=== PATIENT | female | born 1965 | race Caucasian/White ===

== ENCOUNTER 2019-11-28 08:56 | Outpatient (REF) | payer OTHER, SELFPAY ==
[2019-11-30 23:17] LABS: HPV mRNA E6/E7 Not Detected (Not Detected)
== END 2019-11-28 08:57 | disposition home or self-care (01) ==
LOC: HO.LNP 08:56
PROVIDERS: PCP Internal Medicine; Visit Provider Advanced Practice Midwife
DX: Z01.419 Encounter for gynecological examination (general) (routine) without abnormal findings (principal); N92.0 Excessive and frequent menstruation with regular cycle; Z86.19 Personal history of other infectious and parasitic diseases; Z87.42 Personal history of other diseases of the female genital tract
CPT/HCPCS: 87624; 87625; 88142; 99386

== ENCOUNTER 2019-12-20 17:35 | Outpatient (REF) | payer OTHER, SELFPAY ==
--- NOTE | 2019-12-20 17:39 | MM_ITS ---
EXAMINATION: MM SCREENING DIGITAL MAMMOGRAPHY, BILATERAL CLINICAL INFORMATION: Screening. Asymptomatic. The lifetime risk of breast cancer based on the Tyrer-Cuzick Model is 7.5%. COMPARISON: Mammography: May 03, 2018 and studies dating back to July 01, 2017 TECHNIQUE: Digital mammography is performed in craniocaudal and mediolateral oblique views along with computer-aided detection (CAD). Additional right exaggerated craniocaudal view performed. FINDINGS: The breasts are heterogeneously dense, which may obscure small masses (ACR BI-RADS breast composition Category c). There are no significant masses, abnormal calcifications, or other abnormalities. Stable calcifications are seen bilaterally. MM/MM screening mammo BI IMPRESSION: There are no significant changes from prior study. ASSESSMENT: BI-RADS 1: Negative RECOMMENDATION: Routine annual mammography screening. This patient's information was entered into a reminder system with a target due date for their next mammogram.
== END 2019-12-20 17:36 | disposition home or self-care (01) ==
LOC: HO.MAMMO 17:35
PROVIDERS: Visit Provider Internal Medicine
DX: Z01.419 Encounter for gynecological examination (general) (routine) without abnormal findings (principal)
CPT/HCPCS: 77067

== ENCOUNTER 2019-12-29 14:16 | Outpatient (REF) | payer OTHER, SELFPAY ==
--- NOTE | 2019-12-29 14:22 | US_ITS ---
EXAMINATION: US PELVIS COMPLETE US TRANSVAGINAL CLINICAL INFORMATION: Dysmenorrhea. COMPARISON: None TECHNIQUE: Transabdominal and transvaginal ultrasound of the pelvis was performed. FINDINGS: The uterus is anteverted, anteflexed measuring 9.4 cm in length, 4.0 cm in AP and 5.0 cm in transverse dimensions. The uterus is homogeneous in echotexture. Small nabothian cysts are seen in the cervix. The right ovary measures 2.3 x 1.1 x 2.3 cm and volume 3.1 mL. The left ovary measures 3.1 x 2.6 x 1.8 cm and volume 7.6 cm. There are 2 anechoic cyst measuring 1.5 x 1.1 x 1.6 cm and 1.4 x 0.8 x 0.9 cm. There is no free fluid in the cul-de-sac. US/US transvaginal IMPRESSION: Unremarkable uterus. Small simple cysts left ovary. Small nabothian cysts in the cervix.
--- NOTE | 2019-12-29 14:22 | US_ITS ---
EXAMINATION: US PELVIS COMPLETE US TRANSVAGINAL CLINICAL INFORMATION: Dysmenorrhea. COMPARISON: None TECHNIQUE: Transabdominal and transvaginal ultrasound of the pelvis was performed. FINDINGS: The uterus is anteverted, anteflexed measuring 9.4 cm in length, 4.0 cm in AP and 5.0 cm in transverse dimensions. The uterus is homogeneous in echotexture. Small nabothian cysts are seen in the cervix. The right ovary measures 2.3 x 1.1 x 2.3 cm and volume 3.1 mL. The left ovary measures 3.1 x 2.6 x 1.8 cm and volume 7.6 cm. There are 2 anechoic cyst measuring 1.5 x 1.1 x 1.6 cm and 1.4 x 0.8 x 0.9 cm. There is no free fluid in the cul-de-sac. US/US pelvic complete IMPRESSION: Unremarkable uterus. Small simple cysts left ovary. Small nabothian cysts in the cervix.
== END 2019-12-29 14:17 | disposition home or self-care (01) ==
LOC: HO.US 14:16
PROVIDERS: Visit Provider Advanced Practice Midwife
DX: N94.6 Dysmenorrhea, unspecified (principal); N92.0 Excessive and frequent menstruation with regular cycle
CPT/HCPCS: 76830; 76856

== ENCOUNTER 2020-01-30 13:11 | Outpatient (REF) | payer OTHER, SELFPAY ==
[2020-01-31 09:21] LABS: BV Int Neg Control Negative (Negative); BV Int Pos Control Positive (Positive)
[2020-02-03 18:12] LABS: CT PCR NOT DETECTED (Not Detect.); NG PCR NOT DETECTED (Not Detect.)
== END 2020-01-30 13:12 | disposition home or self-care (01) ==
LOC: HO.LAB 13:11
PROVIDERS: PCP Internal Medicine; Visit Provider Advanced Practice Midwife
DX: N93.9 Abnormal uterine and vaginal bleeding, unspecified (principal); N94.6 Dysmenorrhea, unspecified; N89.8 Other specified noninflammatory disorders of vagina; F17.210 Nicotine dependence, cigarettes, uncomplicated; N39.3 Stress incontinence (female) (male)
CPT/HCPCS: 58100; 87480; 87491; 87510; 87591; 87660; 88305

== ENCOUNTER → 2020-02-14 14:43 | Outpatient (BNVA) | payer OTHER, SELFPAY | PROVIDERS: PCP Internal Medicine; Visit Provider Advanced Practice Midwife | DX: Z76.89 Persons encountering health services in other specified circumstances (principal) ==

== ENCOUNTER → 2020-03-08 09:44 | Outpatient (BNVA) | payer OTHER, SELFPAY | PROVIDERS: PCP Internal Medicine; Referring Provider Internal Medicine; Visit Provider Urology | DX: Z76.89 Persons encountering health services in other specified circumstances (principal) ==

== ENCOUNTER 2020-05-29 07:25 | Outpatient (REF) | payer OTHER, SELFPAY ==
[2020-05-29 11:11] LABS: MANUAL DIFF FLAG NO
[2020-05-29 11:24] LABS: Basophils Percent Auto 0.4 % (0-2); Eosinophils Absolute Auto 0.2 X10*3/uL (0.0-0.4); Eosinophils Percent Auto 2.2 % (0-4); Hematocrit 43.8 % (37-47); Hemoglobin 13.4 g/dl (12.0-16.0); Imm Gran Abs Auto 0.01 X10*3/uL (0.00-0.03); Imm Gran Pct Auto 0.1 % (0.0-0.4); Lymphocytes Absolute Auto 1.4 X10*3/uL (1.2-4.9); Lymphocytes Percent Auto 20.6 % (20-40); Mean Corpuscular HGB Conc 30.6 g/dl (31.0-35.0); Mean Corpuscular Hemoglobin 25.8 pg (27.0-33.0); Mean Corpuscular Volume 84.2 fL (80-98); Mean Platelet Volume 11.9 fL (9.4-12.3); Monocytes Absolute Auto 0.4 X10*3/uL (0.1-1.2); Monocytes Percent Auto 6.6 % (2-11); Neutrophils Absolute Auto 4.7 X10*3/uL (2.0-8.3); Neutrophils Percent Auto 70.1 % (45-73); Platelet Count 267 X10*3/uL (160-400); Red Cell Distribution Width 13.3 % (11.0-16.0); White Blood Count 6.7 X10*3/uL (4.8-10.8)
[2020-05-29 11:48] LABS: Alanine Aminotransferase 51 U/L (0-31); Albumin Level 4.3 g/dL (3.5-5.0); Alkaline Phosphatase 48 U/L (39-117); Anion Gap 14 (12-20); Aspartate Amino Transferase 31 U/L (5-31); Bilirubin Direct 0.3 mg/dL (0.0-0.5); Bilirubin Total 0.7 mg/dL (0.0-1.0); Blood Urea Nitrogen 18 mg/dL (9-16); Calcium 9.2 mg/dL (8.4-10.2); Carbon Dioxide 28 mmol/L (22-29); Chloride 103 mmol/L (96-108); Estimated Glomerular Filt Rate > 60; Glucose Random 86 mg/dL (60-115); Potassium 4.6 mmol/L (3.3-5.1); Sodium 140 mmol/L (135-145); Total Protein 6.8 g/dL (6.5-8.0)
[2020-05-29 11:54] LABS: TSH reflex Free T4 0.83 uIU/mL (0.32-4.0)
[2020-05-30 05:48] LABS: LDL Cholesterol Direct 98 mg/dL (<100)
== END 2020-05-29 07:26 | disposition home or self-care (01) ==
LOC: HO.HMGCLDS 07:25
PROVIDERS: PCP Internal Medicine; Visit Provider Internal Medicine
DX: F33.9 Major depressive disorder, recurrent, unspecified (principal); F41.1 Generalized anxiety disorder
CPT/HCPCS: 36415; 80048; 80076; 83721; 84443; 85025

== ENCOUNTER 2020-10-30 10:51 | Outpatient (REF) | payer OTHER, SELFPAY ==
--- NOTE | ~2020-10-30 | XR_ITS ---
EXAMINATION: XR HAND, RIGHT CLINICAL INFORMATION: M19.90 - Unspecified osteoarthritis, unspecified site COMPARISON: None TECHNIQUE: PA, lateral, and oblique views of the right hand. FINDINGS: There is no acute or healing fracture, dislocation, destructive process. The ulnar variance is within neutral. The carpus shows no joint narrowing or erosive change or chondrocalcinosis. The pronator quadratus fat pad appears normal. There is no osteoarthropathy at first carpometacarpal joint. The MCP joints and PIP joints are unremarkable. There is some borderline narrowing DIP joints fourth and fifth fingers. No erosive change. XR/XR hand RT min 3V IMPRESSION: Borderline joint narrowing DIP fourth and fifth fingers. No erosive change.
[2020-10-30 14:19] LABS: Alanine Aminotransferase 29 U/L (0-31); Albumin Level 4.3 g/dL (3.5-5.0); Alkaline Phosphatase 48 U/L (39-117); Aspartate Amino Transferase 20 U/L (5-31); Bilirubin Direct 0.2 mg/dL (0.0-0.5); Bilirubin Total 0.5 mg/dL (0.0-1.0); Total Protein 6.5 g/dL (6.5-8.0)
== END 2020-10-30 10:52 | disposition home or self-care (01) ==
LOC: HO.HMGCX 10:51
PROVIDERS: PCP Internal Medicine; Visit Provider Internal Medicine
DX: M19.90 Unspecified osteoarthritis, unspecified site (principal); R79.89 Other specified abnormal findings of blood chemistry
CPT/HCPCS: 36415; 73130; 80076

== ENCOUNTER 2020-11-22 21:03 | Emergency (ER) | payer OTHER, SELFPAY ==
[2020-11-22 21:28] VITALS: BP 130/56; PULSE 80; RESP 18; TEMP 37.2; O2SAT 99; BMI 35.2
[2020-11-22 21:50] LABS: Appearance Urine CLEAR; Color Urine YELLOW; Glucose Urine UA NEG (NEG); Leukocyte Esterase Urine NEG (NEG); Nitrite Urine NEG (NEG); PH 5.5 (5.0-8.0); Specific Gravity - Urine >= 1.030 (1.005-1.025); UACC Culture Trigger NO; Urine Blood TRACE (NEG); Urine Ketones NEG (NEG); Urine Protein NEG (NEG-TRACE)
[2020-11-22 21:53] LABS: Basophils Percent Auto 0.2 % (0-2); Eosinophils Percent Auto 0.2 % (0-4); Hematocrit 44.5 % (37-47); Hemoglobin 14.2 g/dl (12.0-16.0); Imm Gran Abs Auto 0.07 X10*3/uL (0.00-0.03); Imm Gran Pct Auto 0.4 % (0.0-0.4); Lymphocytes Absolute Auto 0.7 X10*3/uL (1.2-4.9); Lymphocytes Percent Auto 3.5 % (20-40); MANUAL DIFF FLAG SCAN; Mean Corpuscular HGB Conc 31.9 g/dl (31.0-35.0); Mean Corpuscular Hemoglobin 26.1 pg (27.0-33.0); Mean Corpuscular Volume 81.8 fL (80-98); Mean Platelet Volume 10.9 fL (9.4-12.3); Monocytes Percent Auto 5.2 % (2-11); Neutrophils Percent Auto 90.5 % (45-73); Platelet Count 309 X10*3/uL (160-400); Red Blood Count 5.44 X10*6/uL (4.20-5.50); Red Cell Distribution Width 13.2 % (11.0-16.0); SCAN SMEAR FLAG 1; White Blood Count 18.7 X10*3/uL (4.8-10.8)
--- NOTE | 2020-11-22 22:00 | PC.NURSE ---
pt offered zofran, refused
[2020-11-22 22:02] LABS: Bacteria Urine TRACE /LPF; Mucus Urine 2+ /LPF; Squamous Epithelial Cell Urine 1+ /LPF; WBC Urine 0-2 /HPF (0-4)
[2020-11-22 22:03] LABS: Calcium Oxalate Crystals Urine 1+ /LPF
[2020-11-22 22:11] LABS: Alanine Aminotransferase 35 U/L (0-31); Albumin Level 4.7 g/dL (3.5-5.0); Alkaline Phosphatase 49 U/L (39-117); Anion Gap 15 (12-20); Aspartate Amino Transferase 25 U/L (5-31); Bilirubin Direct 0.2 mg/dL (0.0-0.5); Bilirubin Total 0.5 mg/dL (0.0-1.0); Blood Urea Nitrogen 23 mg/dL (9-16); Calcium 9.7 mg/dL (8.4-10.2); Carbon Dioxide 25 mmol/L (22-29); Chloride 103 mmol/L (96-108); Creatinine Clr Calc Pharmacy 75.1; Estimated Glomerular Filt Rate > 60; Glucose Random 148 mg/dL (60-115); Lipase 38 U/L (8-78); Potassium 4.1 mmol/L (3.3-5.1); Sodium 139 mmol/L (135-145); Total Protein 7.2 g/dL (6.5-8.0)
[2020-11-22 22:20] LABS: SLIDE REVIEW VERIFIED
[2020-11-22 22:25] LABS: Glucose, Whole Blood 136 mg/dL (60-115)
[2020-11-22 22:37] VITALS: BP 105/56; PULSE 66; RESP 16; TEMP 36.4; O2SAT 95
[2020-11-22 23:11] VITALS: BP 119/62; PULSE 70; RESP 18; TEMP 36.7; O2SAT 100
--- NOTE | 2020-11-22 23:51 | PC.NURSE ---
pt and s/o seen by ED natural gas treating unit operator walking out of room and leaving ER. pt not seen by MD Charge nurse aware. MD notified
== END 2020-11-22 23:55 | disposition left against medical advice (07) ==
PROVIDERS: Emergency Provider Emergency Medicine; PCP Internal Medicine
DX: R11.10 Vomiting, unspecified (principal); R19.7 Diarrhea, unspecified; Z79.899 Other long term (current) drug therapy
CPT/HCPCS: 36415; 80048; 80076; 81001; 82947; 83690; 85025; 99283

== ENCOUNTER 2020-11-27 08:30 | Outpatient (REF) | payer OTHER, SELFPAY ==
[2020-11-27 10:40] LABS: Thyroid Stimulating Hormone 0.67 uIU/mL (0.32-4.0)
[2020-11-28 09:54] LABS: BV Int Neg Control Negative (Negative); BV Int Pos Control Positive (Positive)
[2020-11-28 12:57] LABS: CT PCR NOT DETECTED (Not Detect.); NG PCR NOT DETECTED (Not Detect.)
[2020-11-29 11:32] LABS: Follicle Stimulating Hormone 31.6 mIU/mL
== END 2020-11-27 08:31 | disposition home or self-care (01) ==
LOC: HO.LAB 08:30
PROVIDERS: PCP Internal Medicine; Visit Provider Advanced Practice Midwife
DX: N93.9 Abnormal uterine and vaginal bleeding, unspecified (principal)
CPT/HCPCS: 36415; 58100; 81025; 83001; 84443; 87480; 87491; 87510; 87591; 87660; 88305

== ENCOUNTER → 2020-12-25 08:35 | Outpatient (BNVA) | payer OTHER, SELFPAY | PROVIDERS: PCP Internal Medicine; Visit Provider Advanced Practice Midwife | DX: N92.0 Excessive and frequent menstruation with regular cycle (principal); Z71.2 Person consulting for explanation of examination or test findings | CPT/HCPCS: 99212 ==

== ENCOUNTER 2021-02-26 14:45 | Outpatient (REF) | payer OTHER, SELFPAY ==
--- NOTE | ~2021-02-26 | MM_ITS ---
EXAMINATION: MM SCREENING DIGITAL BREAST TOMOSYNTHESIS, BILATERAL CLINICAL INFORMATION: Screening. Asymptomatic. The lifetime risk of breast cancer based on the Tyrer-Cuzick Model is 6%. COMPARISON: Mammography: 12/20/2019, outside mammography 05/03/2018 ([facility]), 07/01/2017 ([facility]). TECHNIQUE: Digital breast tomosynthesis is performed in both the craniocaudal and mediolateral oblique views along with computer-aided detection (CAD). Synthesized 2D images are generated from the tomosynthesis. FINDINGS: There are scattered areas of fibroglandular density (ACR BI-RADS breast composition Category b). Breast tissue composition borders on heterogeneously dense. Parenchymal pattern is similar to prior exam. There is no developing density or interval mass or architectural abnormality. Again, there are regional punctate calcifications predominantly upper outer quadrants, more numerous on left. Calcifications are similar in number and distribution to prior study. The axilla and skin contours are unremarkable. MM/MM tomosynthesis screening BI IMPRESSION: No significant changes from prior exam. ASSESSMENT: BI-RADS 2: Benign RECOMMENDATION: Routine annual mammography screening. This patient's information was entered into a reminder system with a target due date for their next mammogram.
== END 2021-02-26 14:46 | disposition home or self-care (01) ==
LOC: HO.MAMMO 14:45
PROVIDERS: PCP Internal Medicine; Visit Provider Advanced Practice Midwife
DX: Z12.31 Encounter for screening mammogram for malignant neoplasm of breast (principal)
CPT/HCPCS: 77063; 77067

== ENCOUNTER 2021-08-19 10:59 | Emergency (ER) | payer OTHER, SELFPAY ==
--- NOTE | 2021-08-19 | ECG_ITS ---
Test Reason : syncope Blood Pressure : / mmHG Vent. Rate : 071 BPM Atrial Rate : 071 BPM P-R Int : 132 ms QRS Dur : 080 ms QT Int : 420 ms P-R-T Axes : 041 038 050 degrees QTc Int : 456 ms Normal sinus rhythm Normal ECG No previous ECGs available Referred By: Generic ED Physician Electronically Signed By:GREG SALINAS
--- NOTE | ~2021-08-19 | CT_ITS ---
EXAMINATION: CT HEAD WITHOUT CONTRAST CT CERVICAL SPINE WITHOUT CONTRAST CLINICAL INFORMATION: Fall. Head injury. COMPARISON: None. TECHNIQUE: Imaging was performed from the skull base to vertex without intravenous administration of contrast. In addition, helical noncontrast CT imaging was acquired through the cervical spine and source images were reviewed along with axial reconstructions and sagittal and coronal MPRs. [This CT examination was performed using dose optimization techniques as appropriate, variously including the following: *Automated exposure control *Adjustment of mA and/or kV according to patient size (this includes techniques or standardized protocols for targeted exams where dose is matched to indication/reason for exam; i.e. extremities or head) *Use of iterative reconstruction technique] DLP: 1227 mGy-cm FINDINGS: HEAD: No intracranial mass, hemorrhage, or midline shift is visualized. The ventricles and sulci are proportional. No extra-axial collections are identified. The paranasal sinuses and mastoid air cells are well aerated. CERVICAL SPINE: There is no evidence of acute cervical spine fracture. Vertebral bodies remain normal in height. Cervical vertebrae have normal alignment. There is multilevel degenerative spondylosis of the cervical spine with disc height narrowing and endplate spurs and facet joint arthrosis No pre- or paravertebral soft tissue abnormality is identified. Limited assessment of the lung apices is unremarkable. CT/CT cervical spine wo con IMPRESSION: 1. No acute intracranial pathology. 2. No CT evidence of acute cervical spine fracture or traumatic subluxation
--- NOTE | ~2021-08-19 | CT_ITS ---
EXAMINATION: CT HEAD WITHOUT CONTRAST CT CERVICAL SPINE WITHOUT CONTRAST CLINICAL INFORMATION: Fall. Head injury. COMPARISON: None. TECHNIQUE: Imaging was performed from the skull base to vertex without intravenous administration of contrast. In addition, helical noncontrast CT imaging was acquired through the cervical spine and source images were reviewed along with axial reconstructions and sagittal and coronal MPRs. [This CT examination was performed using dose optimization techniques as appropriate, variously including the following: *Automated exposure control *Adjustment of mA and/or kV according to patient size (this includes techniques or standardized protocols for targeted exams where dose is matched to indication/reason for exam; i.e. extremities or head) *Use of iterative reconstruction technique] DLP: 1227 mGy-cm FINDINGS: HEAD: No intracranial mass, hemorrhage, or midline shift is visualized. The ventricles and sulci are proportional. No extra-axial collections are identified. The paranasal sinuses and mastoid air cells are well aerated. CERVICAL SPINE: There is no evidence of acute cervical spine fracture. Vertebral bodies remain normal in height. Cervical vertebrae have normal alignment. There is multilevel degenerative spondylosis of the cervical spine with disc height narrowing and endplate spurs and facet joint arthrosis No pre- or paravertebral soft tissue abnormality is identified. Limited assessment of the lung apices is unremarkable. CT/CT head/brain wo con IMPRESSION: 1. No acute intracranial pathology. 2. No CT evidence of acute cervical spine fracture or traumatic subluxation
[2021-08-19 11:19] VITALS: BP 133/82; PULSE 84; RESP 18; TEMP 36.9; O2SAT 98; BMI 27.3
[2021-08-19 12:11] LABS: MANUAL DIFF FLAG NO
[2021-08-19 12:19] LABS: Basophils Percent Auto 0.3 % (0-2); Eosinophils Absolute Auto 0.1 X10*3/uL (0.0-0.4); Hematocrit 40.8 % (37.0-47.0); Hemoglobin 12.9 g/dl (12.0-16.0); Imm Gran Abs Auto 0.03 X10*3/uL (0.00-0.03); Imm Gran Pct Auto 0.5 % (0.0-0.4); Lymphocytes Absolute Auto 1.3 X10*3/uL (1.2-4.9); Lymphocytes Percent Auto 22.3 % (20-40); Mean Corpuscular HGB Conc 31.6 g/dl (31.0-35.0); Mean Corpuscular Hemoglobin 25.6 pg (27.0-33.0); Mean Corpuscular Volume 81.1 fL (80.0-98.0); Mean Platelet Volume 10.5 fL (9.4-12.3); Monocytes Absolute Auto 0.3 X10*3/uL (0.1-1.2); Monocytes Percent Auto 4.7 % (2-11); Neutrophils Absolute Auto 4.2 x10*3/uL (2.0-8.3); Neutrophils Percent Auto 70.2 % (45-73); Platelet Count 262 X10*3/uL (160-400); Red Blood Count 5.03 X10*6/uL (4.20-5.50); Red Cell Distribution Width 13.5 % (11.0-16.0)
[2021-08-19 12:27] LABS: Anion Gap 12 (12-20); Blood Urea Nitrogen 16 mg/dL (9-16); Calcium 9.6 mg/dL (8.4-10.2); Carbon Dioxide 26 mmol/L (22-29); Chloride 105 mmol/L (96-108); Estimated Glomerular Filt Rate > 60; Glucose Random 128 mg/dL (60-115); Potassium 4.4 mmol/L (3.3-5.1); Sodium 139 mmol/L (135-145)
--- NOTE | 2021-08-19 20:31 | ED_ITS ---
HPI - Headache General Chief Complaint: Headache Stated Complaint: fainted, severe headache Time Seen by Provider: 08/19/21 15:29 Source: patient Mode of arrival: ambulatory Limitations: no limitations History of Present Illness MD elicited complaint: headache Related Data Home Medications Medication Instructions Recorded Confirmed toño extract 500 mg capsule cap PO 11/28/19 02/08/21 naproxen 500 mg tablet 500 mg PO Q12H PRN pain 11/28/19 02/08/21 naproxen sodium 220 mg tablet 220 mg PO BID PRN 01/09/21 02/08/21 (Aleve) Previous Rx's Medication Instructions Recorded metronidazole 1 % topical gel with 1 appl topical ONCE 30 days #55 08/21/20 pump grams mometasone 0.1 % topical cream 1 appl topical DAILY 30 days #45 09/14/20 grams valacyclovir 500 mg tablet 500 mg PO BID #30 tabs 09/24/20 (Valtrex) cholecalciferol (vitamin D3) 25 25 mcg PO DAILY 90 days #90 caps 09/25/20 mcg (1,000 unit) capsule cyclobenzaprine 5 mg tablet 5 mg PO BEDTIME 30 days #30 tabs 01/09/21 methylprednisolone 4 mg tablets in See Rx Instructions PO PER PKG DIR 01/09/21 a dose pack (Medrol (Gabriele)) 6 days #21 ea omeprazole 20 mg capsule,delayed 20 mg PO DAILY #90 caps 05/13/21 release sertraline 25 mg tablet (Zoloft) 25 mg PO DAILY 90 days #90 tabs 05/21/21 Allergies Allergy/AdvReac Type Severity Reaction Status Date / Time No Known Allergies Allergy Verified 08/19/21 11:22 [No Known Allergies*] [facility] Past Medical History Medical History Anxiety, generalized Atopic dermatitis Depression, major, recurrent Herpes labialis Hx of cold sores Hx of rosacea Surgical History History of bladder surgery Hx of appendectomy Tubal ligation status Family History Family History Mother Family hx of hypertension Family history of Alzheimer's disease Father No problems noted. Brother No problems noted. Brother No problems noted. Brother No problems noted. Brother No problems noted. Social History Social History Housing: House Alcohol intake: current Alcohol intake frequency: a few times a month Patient Tobacco Use Status: Never used Tobacco Advance Directives: No Current occupational status: employed Physical Exam Vital Signs: Vital Signs: Last Vital Signs Temp 98.4 F 08/19/21 11:19 Pulse 75 08/19/21 20:38 Resp 18 08/19/21 20:38 BP 138/73 08/19/21 20:38 Pulse Ox 97 08/19/21 20:38 O2 Del Method 08/19/21 20:38 BMI result Body Mass Index 27.3 MDM - Headache Lab Data Result diagrams: 08/19/21 12:05 08/19/21 12:05 Labs: Lab Results 08/19/21 08/19/21 Range/Units 12:05 12:05 WBC 6.0 (4.8-10.8) X10*3/uL RBC 5.03 (4.20-5.50) X10*6/uL Hgb 12.9 (12.0-16.0) g/dl Hct 40.8 (37.0-47.0) % MCV 81.1 (80.0-98.0) fL MCH 25.6 L (27.0-33.0) pg MCHC 31.6 (31.0-35.0) g/dl RDW 13.5 (11.0-16.0) % Plt Count 262 (160-400) X10*3/uL MPV 10.5 (9.4-12.3) fL Immature Gran % (Auto) 0.5 H (0.0-0.4) % Neut % (Auto) 70.2 (45-73) % Lymph % (Auto) 22.3 (20-40) % [place] % (Auto) 4.7 (2-11) % Eos % (Auto) 2.0 (0-4) % Baso % (Auto) 0.3 (0-2) % Lymph # (Auto) 1.3 (1.2-4.9) X10*3/uL [place] # (Auto) 0.3 (0.1-1.2) X10*3/uL Eos # (Auto) 0.1 (0.0-0.4) X10*3/uL Baso # (Auto) 0.0 (0.0-0.2) X10*3/uL Abs Immat Gran (auto) 0.03 (0.00-0.03) X10*3/uL Absolute Neuts (auto) 4.2 (2.0-8.3) x10*3/uL Absolute Nucleated RBC 0.000 (0.0-0.012) X10*3/uL Nucleated RBC % (auto) 0.0 (0.0-0.2) /100WBC Sodium 139 (135-145) mmol/L Potassium 4.4 (3.3-5.1) mmol/L Chloride 105 (96-108) mmol/L Carbon Dioxide 26 (22-29) mmol/L Anion Gap 12 (12-20) BUN 16 (9-16) mg/dL Creatinine 0.72 (0.5-1.4) mg/dL Estim Creat Clear Calc 100.0 Estimated GFR > 60 Random Glucose 128 H (60-115) mg/dL Calcium 9.6 (8.4-10.2) mg/dL Discharge Plan Discharge Prescriptions: No Action metronidazole 1 % gel with pump 1 appl topical ONCE 30 Days Qty: 55 0RF mometasone 0.1 % cream 1 appl topical DAILY 30 Days Qty: 45 0RF valacyclovir [Valtrex] 500 mg tablet 500 mg PO BID Qty: 30 1RF Rx Instructions: take with onset on of symptoms, take for three days, may repeat dosing per episode prn cholecalciferol (vitamin D3) 25 mcg (1,000 unit) capsule 25 mcg PO DAILY 90 Days Qty: 90 1RF omeprazole 20 mg capsule,delayed release(DR/EC) 20 mg PO DAILY Qty: 90 0RF sertraline [Zoloft] 25 mg tablet 25 mg PO DAILY 90 Days Qty: 90 1RF naproxen sodium [Aleve] 220 mg tablet 220 mg PO BID PRN methylprednisolone [Medrol (Gabriele)] 4 mg tablets,dose pack See Rx Instructions PO PER PKG DIR 6 Days Qty: 21 0RF Rx Instructions: PO PER PKG DIR cyclobenzaprine 5 mg tablet 5 mg PO BEDTIME 30 Days Qty: 30 0RF naproxen 500 mg tablet 500 mg PO Q12H PRN (Reason: pain) toño extract 500 mg capsule PO
[2021-08-19 20:38] VITALS: BP 138/73; PULSE 75; RESP 18; O2SAT 97
--- NOTE | 2021-08-19 20:43 | PC.NURSE ---
WEIGHT REDUCING TECHNICIAN Sharon called to ask for urine and flu and covid swabs. I told the pt they need those tests. Pt stated that she had them done at [facility] and wanted me to ask the provider if this is necessary. Pt also said she has been waiting for a long time and would like her results of her ct so she can leave
--- NOTE | 2021-08-19 21:13 | ED.HA ---
HPI - Headache General Chief Complaint: Headache Stated Complaint: fainted, severe headache Time Seen by Provider: 08/19/21 15:29 Source: patient Mode of arrival: ambulatory Limitations: no limitations History of Present Illness HPI Narrative: patient with history of anxiety under increased stress lately comes here for 3 days of headache mostly bitemporal when the headache started patient felt lightheaded and passed out after that continues to have pain went to [facility] labs were done but unable to wait to see the physician hence she left since then complaining of headache. No relation of the headache to the Whit no sinus discharge no fever no chills no head injury no visual problem no neck pain Related Data Home Medications Medication Instructions Recorded Confirmed toño extract 500 mg capsule cap PO 11/28/19 02/08/21 naproxen 500 mg tablet 500 mg PO Q12H PRN pain 11/28/19 02/08/21 naproxen sodium 220 mg tablet 220 mg PO BID PRN 01/09/21 02/08/21 (Aleve) Previous Rx's Medication Instructions Recorded metronidazole 1 % topical gel with 1 appl topical ONCE 30 days #55 08/21/20 pump grams mometasone 0.1 % topical cream 1 appl topical DAILY 30 days #45 09/14/20 grams valacyclovir 500 mg tablet 500 mg PO BID #30 tabs 09/24/20 (Valtrex) cholecalciferol (vitamin D3) 25 25 mcg PO DAILY 90 days #90 caps 09/25/20 mcg (1,000 unit) capsule cyclobenzaprine 5 mg tablet 5 mg PO BEDTIME 30 days #30 tabs 01/09/21 methylprednisolone 4 mg tablets in See Rx Instructions PO PER PKG DIR 01/09/21 a dose pack (Medrol (Gabriele)) 6 days #21 ea omeprazole 20 mg capsule,delayed 20 mg PO DAILY #90 caps 05/13/21 release sertraline 25 mg tablet (Zoloft) 25 mg PO DAILY 90 days #90 tabs 05/21/21 cuikmsxybq-uywpaumxvlwvd-wedwisng 1 cap PO Q6H PRN headache #20 caps 08/19/21 50 mg-300 mg-40 mg capsule (Fioricet) Allergies Allergy/AdvReac Type Severity Reaction Status Date / Time No Known Allergies Allergy Verified 08/19/21 11:22 [No Known Allergies*] Review of Systems Review of Systems: Yes all other systems are reviewed and are negative COUNTS INCLUDE 234 BEDS AT THE [facility] Past Medical History Medical History Hx of cold sores Hx of rosacea Surgical History History of bladder surgery Hx of appendectomy Tubal ligation status Family History Family History Mother Family hx of hypertension Family history of Alzheimer's disease Father No problems noted. Brother No problems noted. Brother No problems noted. Brother No problems noted. Brother No problems noted. Social History Social History Housing: House Alcohol intake: current Alcohol intake frequency: a few times a month Patient Tobacco Use Status: Never used Tobacco Advance Directives: No Current occupational status: employed Physical Exam Vital Signs: Vital Signs: Last Vital Signs Temp 98.4 F 08/19/21 11:19 Pulse 75 08/19/21 20:38 Resp 18 08/19/21 20:38 BP 138/73 08/19/21 20:38 Pulse Ox 97 08/19/21 20:38 O2 Del Method 08/19/21 20:38 BMI result Body Mass Index 27.3 Appearance: Alert. Oriented X3. No acute distress. Eyes: PERRLA, No Nystagmus ENT: Pharynx normal. Oral Mucosa moist no temporal artery tenderness no sinus tenderness Neck: Normal inspection. Neck supple. CVS: Normal heart rate and rhythm. Pulses normal. Respiratory: No respiratory distress. Equal air entry bilateral, no wheezing/rales/rhonchi Abdomen: Soft and nontender. Bowel sounds are present, no mass palpable, no CVA tenderness Skin: Skin warm and dry. Normal skin color. Normal skin turgor. Extremities: No lower extremity edema. No calf tenderness Neuro: Oriented X 3. No motor deficit. No sensory deficit.No cerebellar signs , cranial nerves II-XII intact MDM - Headache MDM Narrative Medical decision making narrative: patient with increased stress at home though the family member in last 2 weeks lab workup is negative head CT and C-spine CT is negative will discharge patient home on Fioricet, Lab Data Attestation: I reviewed the patient's lab results. Result diagrams: 08/19/21 12:05 08/19/21 12:05 Labs: Lab Results 08/19/21 08/19/21 Range/Units 12:05 12:05 WBC 6.0 (4.8-10.8) X10*3/uL RBC 5.03 (4.20-5.50) X10*6/uL Hgb 12.9 (12.0-16.0) g/dl Hct 40.8 (37.0-47.0) % MCV 81.1 (80.0-98.0) fL MCH 25.6 L (27.0-33.0) pg MCHC 31.6 (31.0-35.0) g/dl RDW 13.5 (11.0-16.0) % Plt Count 262 (160-400) X10*3/uL MPV 10.5 (9.4-12.3) fL Immature Gran % (Auto) 0.5 H (0.0-0.4) % Neut % (Auto) 70.2 (45-73) % Lymph % (Auto) 22.3 (20-40) % [place] % (Auto) 4.7 (2-11) % Eos % (Auto) 2.0 (0-4) % Baso % (Auto) 0.3 (0-2) % Lymph # (Auto) 1.3 (1.2-4.9) X10*3/uL [place] # (Auto) 0.3 (0.1-1.2) X10*3/uL Eos # (Auto) 0.1 (0.0-0.4) X10*3/uL Baso # (Auto) 0.0 (0.0-0.2) X10*3/uL Abs Immat Gran (auto) 0.03 (0.00-0.03) X10*3/uL Absolute Neuts (auto) 4.2 (2.0-8.3) x10*3/uL Absolute Nucleated RBC 0.000 (0.0-0.012) X10*3/uL Nucleated RBC % (auto) 0.0 (0.0-0.2) /100WBC Sodium 139 (135-145) mmol/L Potassium 4.4 (3.3-5.1) mmol/L Chloride 105 (96-108) mmol/L Carbon Dioxide 26 (22-29) mmol/L Anion Gap 12 (12-20) BUN 16 (9-16) mg/dL Creatinine 0.72 (0.5-1.4) mg/dL Estim Creat Clear Calc 100.0 Estimated GFR > 60 Random Glucose 128 H (60-115) mg/dL Calcium 9.6 (8.4-10.2) mg/dL Discharge Plan Discharge Clinical Impression: Headache Patient Disposition: Home, Self-Care Instructions: Tension Headache (ED) Additional Instructions: Rest at home Take medication as prescribed for severe headache Descansar en casa [place] la medicaci?n seg?n lo prescrito para el dolor de julia intenso Prescriptions: New obokixgmiz-zjzucxkwkrzhr-jlal [Fioricet] 50-300-40 mg capsule 1 cap PO Q6H PRN (Reason: headache) Qty: 20 0RF No Action metronidazole 1 % gel with pump 1 appl topical ONCE 30 Days Qty: 55 0RF mometasone 0.1 % cream 1 appl topical DAILY 30 Days Qty: 45 0RF valacyclovir [Valtrex] 500 mg tablet 500 mg PO BID Qty: 30 1RF Rx Instructions: take with onset on of symptoms, take for three days, may repeat dosing per episode prn cholecalciferol (vitamin D3) 25 mcg (1,000 unit) capsule 25 mcg PO DAILY 90 Days Qty: 90 1RF omeprazole 20 mg capsule,delayed release(DR/EC) 20 mg PO DAILY Qty: 90 0RF sertraline [Zoloft] 25 mg tablet 25 mg PO DAILY 90 Days Qty: 90 1RF naproxen sodium [Aleve] 220 mg tablet 220 mg PO BID PRN methylprednisolone [Medrol (Gabriele)] 4 mg tablets,dose pack See Rx Instructions PO PER PKG DIR 6 Days Qty: 21 0RF Rx Instructions: PO PER PKG DIR cyclobenzaprine 5 mg tablet 5 mg PO BEDTIME 30 Days Qty: 30 0RF naproxen 500 mg tablet 500 mg PO Q12H PRN (Reason: pain) toño extract 500 mg capsule PO Stand Alone Forms: Work/School Release Interventions: ED Discharge Assessment Last Done: 08/19/21 21:32 Discharge Date/Time: 08/19/21 21:33 Print Language: Singaporean
--- NOTE | 2021-08-19 21:31 | PC.NURSE ---
PT EVALED BY PROVIDERS. PT REFUSED ANY FURTHER LABS. PT STATES JUST WANTS RESULTS AND TO GO HOME. PT A/OX3, NEUROS INTACT. JACOBSON. AMB WITH STEADY GAIT.
== END 2021-08-19 21:33 | disposition home or self-care (01) ==
PROVIDERS: Emergency Provider Internal Medicine; PCP Internal Medicine
DX: R55 Syncope and collapse (principal); M54.2 Cervicalgia; R51.9 Headache, unspecified; F41.1 Generalized anxiety disorder; F43.0 Acute stress reaction; Z79.899 Other long term (current) drug therapy
CPT/HCPCS: 36415; 70450; 72125; 80048; 85025; 93005; 99283

== ENCOUNTER 2022-01-29 09:44 | Outpatient (REF) | payer OTHER, SELFPAY ==
[2022-01-29 16:57] LABS: CT PCR NOT DETECTED (Not Detect.); NG PCR NOT DETECTED (Not Detect.)
[2022-01-30 09:33] LABS: BV Int Neg Control Negative (Negative); BV Int Pos Control Positive (Positive)
[2022-02-01 22:04] LABS: HPV mRNA E6/E7 rflx Not Detected (Not Detected)
== END 2022-01-29 09:45 | disposition home or self-care (01) ==
LOC: HO.LNP 09:44
PROVIDERS: Visit Provider Advanced Practice Midwife
DX: Z01.419 Encounter for gynecological examination (general) (routine) without abnormal findings (principal); N92.0 Excessive and frequent menstruation with regular cycle; Z11.3 Encounter for screening for infections with a predominantly sexual mode of transmission
CPT/HCPCS: 87480; 87491; 87510; 87591; 87624; 87660; 88142

== ENCOUNTER 2022-03-12 09:05 | Outpatient (REF) | payer OTHER, SELFPAY ==
--- NOTE | ~2022-03-12 | MM_ITS ---
EXAMINATION: MM SCREENING DIGITAL BREAST TOMOSYNTHESIS, BILATERAL CLINICAL INFORMATION: Screening. Asymptomatic. The lifetime risk of breast cancer based on the Tyrer-Cuzick Model is 8.1%. COMPARISON: Mammography: February 26, 2021 and studies dating back to July 01, 2017 TECHNIQUE: Digital breast tomosynthesis is performed in both the craniocaudal and mediolateral oblique views along with computer-aided detection (CAD). Synthesized 2D images are generated from the tomosynthesis. FINDINGS: The breasts are heterogeneously dense, which may obscure small masses (ACR BI-RADS breast composition Category c). There are no significant masses, abnormal calcifications, or other abnormalities. There is multiplicity and bilaterality of stable calcifications. MM/MM tomosynthesis screening BI IMPRESSION: No significant changes ASSESSMENT: BI-RADS 2: Benign RECOMMENDATION: Routine annual mammography screening. This patient's information was entered into a reminder system with a target due date for their next mammogram.
== END 2022-03-12 09:06 | disposition home or self-care (01) ==
LOC: HO.MAMMO 09:05
PROVIDERS: PCP Internal Medicine; Visit Provider Internal Medicine
DX: Z12.31 Encounter for screening mammogram for malignant neoplasm of breast (principal)
CPT/HCPCS: 77063; 77067

== ENCOUNTER 2022-05-07 16:12 | Outpatient (REF) | payer OTHER, SELFPAY ==
--- NOTE | ~2022-05-07 | XR_ITS ---
EXAMINATION: XR HIP, RIGHT CLINICAL INFORMATION: Pain in right hip COMPARISON: None available. TECHNIQUE: Two views of the right hip. FINDINGS: Joint space is maintained. No significant arthropathy. No fracture or dislocation. No focal bone lesion. There is a small calcified enthesophyte at the trochanter of the right femur. XR/XR hip RT min 2V IMPRESSION: Normal right hip.
== END 2022-05-07 16:13 | disposition home or self-care (01) ==
LOC: HO.HMGCX 16:12
PROVIDERS: PCP Internal Medicine; Visit Provider Internal Medicine
DX: M25.551 Pain in right hip (principal)
CPT/HCPCS: 73502

== ENCOUNTER 2022-08-29 07:16 | Outpatient (REF) | payer OTHER, SELFPAY | END 2022-08-29 07:17 | disposition home or self-care (01) | LOC: HO.HMGCLDS 07:16 | PROVIDERS: PCP Internal Medicine; Visit Provider Internal Medicine | DX: F33.9 Major depressive disorder, recurrent, unspecified (principal); B00.1 Herpesviral vesicular dermatitis; F41.1 Generalized anxiety disorder; R79.89 Other specified abnormal findings of blood chemistry | CPT/HCPCS: 36415; 80053; 80061; 84443; 85025 ==

== ENCOUNTER 2022-09-02 14:19 | Outpatient (AMB) | payer OTHER, SELFPAY ==
[2022-09-02 14:22] VITALS: BP 120/74; PULSE 89; O2SAT 96; BMI 27.4
--- NOTE | 2022-09-02 14:22 | A.OFFPC_ITS ---
Vital Signs 09/02/22 14:22 Height 5 ft 8 in Weight 180 lb 8 oz BMI 27.4 BP 120/74 Blood Pressure Location Rt brachial Position Sitting Pulse 89 Pulse Source Pulse Oximeter Pulse Oximetry (%) 96 Oxygen Delivery Method Room Air Intake Visit Reasons: PE Allergies No Known Allergies [No Known Allergies*] Allergy (Verified 09/02/22 14:23) Medication List - Last Reconciled 09/02/22 by Carl Kwon MD cholecalciferol (vitamin D3) 25 mcg PO DAILY 90 days fluticasone propionate 50 mcg/actuation (Flonase Allergy Relief) 1 spray intranasal DAILY meloxicam 7.5 mg PO DAILY PRN 30 days mometasone 0.1% 1 appl topical DAILY 30 days rhubarb root extract (Estroven Complete Menopause Relief) mg PO sertraline 25 mg PO DAILY 90 days valacyclovir (Valtrex) 500 mg PO BID Tobacco use date assessed: 09/02/22 Dental Screening Dental Screen Date: 09/02/22 Did you have a dental visit in the last 12 months?: Yes Did you have a dental problem in the last 6 months where you did not have access to dental care?: No Was dental information given to patient?: No HPI PE HPI Details PE Physical exam appointment colonoscopy is due Pap smear thru [facility] pain radiating to right leg having this pain since Feb getting worse meloxicam was helping initially but now its not working she is taking 7.5 mg she may double the dose I have send Prednison 20 mg once a day for 5 days she is c/o of paraesthia in lower ext she is having PT which is is making it worse had MRI in [facility] years ago, showed disc problem she had cortison injection which did helped I have placed a referral for her to see Management [facility] Labs done recently reviewed patient has impaired fasting sugar of 103 she is aware to control her diet Couple of liver enzymes are off we will continue to monitor that [facility] Medical History Anxiety, generalized Atopic dermatitis Depression, major, recurrent Herpes labialis Hx of cold sores Hx of rosacea Well woman exam Surgical History Hx of appendectomy Hx of cholecystectomy Tubal ligation status Family History Mother Family hx of hypertension Family history of Alzheimer's disease Father No problems noted. Brother No problems noted. Brother No problems noted. Brother No problems noted. Brother No problems noted. Social History Housing: House Alcohol intake: current Alcohol intake frequency: a few times a month Patient Tobacco Use Status: Never used Tobacco e-Cigarette/Vaping Use: Never Used Current occupational status: employed Cognitive needs: No Hearing needs: No Vision needs: No Female Reproductive History Menstrual Age of Menarche: 14 Questionnaire Thrive Questionnaire Date Thrive assessed: 05/07/22 AUDIT C Alcohol Use Questionnaire (AUDIT-C) 1. How often do you have a drink containing alcohol?: Never 3. How often do you have six or more drinks on one occasion?: Never Total Score: 0 Score Reviewed/Action Taken: Yes KAMLESH-7 AMB Questionnaire KAMLESH-7 Date KAMLESH - 7 assessed: 05/07/22 Source: Developed by Drs. Crow Burks, Kavita Pace, Chino Corrales and colleagues, with an educational yousif from [employer]. Review of Systems Const Denies chills, Denies fever(s) and Denies headache(s) Eyes Denies blurry vision ENT Denies headache(s), Denies nasal discharge, Denies nasal obstruction, Denies odynophagia and Denies sinus pain Card Denies chest pain at rest and Denies chest pain with activity Resp Denies cough and Denies hemoptysis GI Denies diarrhea, Denies odynophagia, Denies vomiting and Denies hematemesis Reports as per HPI Musc Denies abnormal gait Skin/Breast Reports as per HPI Neuro Denies Neuro-related abnormal movements, Denies Abnormal speech present, Denies abnormal gait, Denies headache(s) and Denies Sensory deficit (Neuro) Psych Denies mood swings and Denies paranoia Endo Reports as per HPI Chuck/Lymph Reports as per HPI Aller/Immun Reports as per HPI Physical exam (Primary Care) Vital Signs: Last Vital Signs Pulse 89 09/02/22 14:22 BP 120/74 09/02/22 14:22 Pulse Ox 96 09/02/22 14:22 Oxygen Delivery Method Room Air 07/11/23 14:22 BMI result Body Mass Index 27.4 Tobacco/Smoking Status: Tobacco use Status Tobacco use date assessed 09/02/22 09/02/22 14:26 Patient Tobacco Use Status Never used Tobacco 09/02/22 14:26 e-Cigarette/Vaping Use Never Used 09/02/22 14:26 Thrive Assessment: Date of Thrive Assessment Date Thrive assessed 05/07/22 09/02/22 14:26 Const General: cooperative, comfortable and no acute distress Orientation/consciousness: patient oriented x3 HENMT Head: Yes normocephalic and Yes atraumatic Eyes General: appearance normal, both eyes and all related structures Pupils: Equal, round and reactive pupils present EOM: EOMs intact bilaterally Neck Neck: Yes supple and No lymphadenopathy Thyroid: Thyroid normal Lymphatic: no lymphadenopathy noted Resp Effort & Inspection: normal respiratory effort and able to speak in complete sentences Auscultation: clear to auscultation bilaterally Cardio Heart sounds: S1 normal heart sound present and S2 normal heart sound present GI Palpation (GI): Soft to palpation and nontender Auscultation: normal bowel sounds General: Yes no CVA tenderness Back/Spine/Pelvis Back: no CVA tenderness Skin General skin exam: elasticity normal and turgor normal Neuro General: patient oriented x3 and gait normal Cranial nerves: Yes Equal, round and reactive pupils present Speech: No Abnormal speech present Sensory Exam: No Sensory deficit (Neuro) Coordination: tandem gait normal and Romberg test negative Extrem General: Yes normal exam except as noted and No edema Assessment and Plan Assessment & Plan (1) Encounter for general adult medical examination with abnormal findings: Code(s): Z00.01 - Encounter for general adult medical examination with abnormal findings (2) Right lumbar radiculitis: Code(s): M54.16 - Radiculopathy, lumbar region (3) Colon cancer screening: Code(s): Z12.11 - Encounter for screening for malignant neoplasm of colon Plan PE Physical exam appointment colonoscopy is due Pap smear thru [facility] pain radiating to right leg having this pain since Feb getting worse meloxicam was helping initially but now its not working she is taking 7.5 mg she may double the dose I have send Prednison 20 mg once a day for 5 days she is c/o of paraesthia in lower ext she is having PT which is is making it worse had MRI in [place] years ago, showed disc problem she had cortison injection which did helped I have placed a referral for her to see Management [facility] Labs done recently reviewed patient has impaired fasting sugar of 103 she is aware to control her diet Couple of liver enzymes are off we will continue to monitor that Orders: Orders XR lumbar spine 2-3V Today M54.16 - Radiculopathy, lumbar region Referrals Pain Management Referral M54.16 - Radiculopathy, lumbar region Gastroenterology Referral Z12.11 - Encounter for screening for malignant neoplasm of colon Medications: New prednisone 20 mg PO DAILY 5 tabs 0RF 5 days Coding Level of Care Code Est Pt Prev Care 40-64y(93618) Diagnoses Encounter for general adult medical examination with abnormal findings Z00.01 Right lumbar radiculitis M54.16 Colon cancer screening Z12.11
== END 2022-09-02 15:03 | disposition home or self-care (01) ==
PROVIDERS: Visit Provider Internal Medicine
DX: Z00.01 Encounter for general adult medical examination with abnormal findings (principal); M54.16 Radiculopathy, lumbar region; Z12.11 Encounter for screening for malignant neoplasm of colon
CPT/HCPCS: 99396

== ENCOUNTER 2022-09-02 15:01 | Outpatient (REF) | payer OTHER, SELFPAY ==
--- NOTE | ~2022-09-02 | XR_ITS ---
EXAMINATION: XR LUMBOSACRAL SPINE CLINICAL INFORMATION: Radiculopathy COMPARISON: None available. TECHNIQUE: Three views of the lumbosacral spine. FINDINGS: There is lumbar lordotic straightening. Vertebral bodies are maintained in height. L5-S1 disc space narrowing. Pedicles and SI joints within normal limits. No significant hip joint narrowing seen. Pelvic phleboliths. Cholecystectomy clips. XR/XR lumbar spine 2-3V IMPRESSION: Lumbar lordotic straightening. L5-S1 disc disease.
== END 2022-09-02 15:02 | disposition home or self-care (01) ==
LOC: HO.HMGCX 15:01
PROVIDERS: PCP Internal Medicine; Visit Provider Internal Medicine
DX: M54.16 Radiculopathy, lumbar region (principal)
CPT/HCPCS: 72100

== ENCOUNTER 2022-09-03 10:46 | Outpatient (AMB) | payer OTHER, SELFPAY ==
--- NOTE | 2022-09-03 11:09 | MHC.OFFVIS ---
Intake Vital Signs 09/03/22 11:14 Height 5 ft 8 in Weight 180 lb BMI 27.4 BP 130/72 Blood Pressure Location Lt brachial Position Sitting Respiration 16 Pulse 78 Pulse Source Pulse Oximeter Pulse Oximetry (%) 96 Oxygen Delivery Method Room Air Intake Visit Reasons: LUMBAR RADICULOPATHY Allergies No Known Allergies [No Known Allergies*] Allergy (Verified 09/03/22 11:05) HPI HPI Comments History of Present Illness Details Mandie is a pleasant 56-year-old female who presents to the office today for evaluation and management of her chronic lower back pain. Patient reports that she has had this pain for greater than 10 years. Pain today is a 9/10 with radiation laterally down the right leg into the right foot. She has tried physical therapy, chiropractor, massage, NSAIDs, lidocaine patches, ice, heat but none have improved her pain. Her last MRI was greater than 5 years ago; completed in [place] where she subsequently had injections and lumbar radiofrequency ablation. The radiofrequency ablation provided her approximately 3 years of pain relief but the pain has since returned. Patient does endorse pain down the right leg into the foot with some associated numbness and tingling. Patient denies red flag symptoms including loss of bowel, bladder or saddle anesthesia. In terms of muscle damage condition is described as hot, burning, tingling, pins and needles. Pain is intermittent and worse during the day and in the middle the night. Patient reports that the pain is negatively impacting her general activity, normal work, recreational activities, sleep and walking. The patient's past medical history is significant for depression, anxiety, headaches and arthritis. Patient denies implantable devices, pacemaker and/or defibrillator. Patient endorses social alcohol use. Denies use of tobacco, nicotine or illicit substances. [facility] Medical History Anxiety, generalized Atopic dermatitis Depression, major, recurrent Herpes labialis Hx of cold sores Hx of rosacea Well woman exam Surgical History Hx of appendectomy Hx of cholecystectomy Tubal ligation status Family History Mother Family hx of hypertension Family history of Alzheimer's disease Father No problems noted. Brother No problems noted. Brother No problems noted. Brother No problems noted. Brother No problems noted. Social History Housing: House Alcohol intake: current Alcohol intake frequency: a few times a month Patient Tobacco Use Status: Never used Tobacco e-Cigarette/Vaping Use: Never Used Current occupational status: employed Cognitive needs: No Hearing needs: No Vision needs: No Female Reproductive History Menstrual Age of Menarche: 14 Physical Exam Vital Signs: Last Vital Signs Pulse 78 09/03/22 11:14 Resp 16 09/03/22 11:14 BP 130/72 09/03/22 11:14 Pulse Ox 96 09/03/22 11:14 Oxygen Delivery Method Room Air 09/03/22 11:14 BMI result Body Mass Index 27.4 General: awake, alert, oriented. Answers questions appropriately. Fully engaged in examination. Skin: warm, dry, intact without visible rashes or lesions. HEENT: Normocephalic. Conjuntivae clear without exudate. Sclera non-icteric. Hearing intact. Cardiac: External chest normal in appearance. Respiratory: No signs of trauma. No signs of respiratory distress. No cough, audible wheezing or stridor. Abdomen: without gross distension. Neurological: Oriented to person, place, time and situation. Thought process intact. No gait abnormalities appreciated. Psychiatric: Appropriate mood and affect. Good judgment and insight. Back/Spine/Pelvis Other: Able to stand on bilateral tiptoes and bilateral heels. Able to transition from sit to stand unassisted. Ambulates with bilaterally normal heel strike and toe off Visual inspection without gross abnormality Tender to palpation over PSIS and paraspinal muscles Nontender to palpation over midline lumbar vertebrae ROM: extension to 15 degrees. flexion to 60 degrees Strength: 5/5 BLE Sensation: intact and symmetric BLE DTR: intact and symmetric Straight leg raises with and without dorsiflexion positive bilaterally, R>L Facet loading positive bilaterally REKHA positive bilaterally, R>L SI compression negative bilaterally Results Reviewed Results Reviewed: LS xray completed yesterday, results pending. Assessment & Plan Assessment & Plan (1) Lumbar radiculopathy: Code(s): M54.16 - Radiculopathy, lumbar region (2) Lumbar spondylosis: Code(s): M47.816 - Spondylosis without myelopathy or radiculopathy, lumbar region (3) Facet arthritis of lumbar region: Code(s): M47.816 - Spondylosis without myelopathy or radiculopathy, lumbar region Plan Mandie is a very pleasant 56-year-old female who presented to the office today for evaluation and management of her chronic lower back pain. Patient has failed conservative therapy including NSAIDs, muscle relaxers, heat, ice, topical medications, physical therapy, massage and chiropractor. She continues with meloxicam as needed for pain and is prescribed by her primary care doctor. Patient has history of radiofrequency ablation to the lower back in 2017. She does not have any recent MRI of her lumbar spine though she does report lumbar radiculopathy which is consistent with physical exam and provocative testing. Order placed for MRI lumbar spine without contrast Tizanidine 2 mg at bedtime as needed. Discussed options for treatment including diagnostic interventional testing, epidural steroid injections, peripheral nerve stimulation with Sprint, RFA and more permanent neuromodulation. Patient will follow up here after MRI to review results and update plan of care. All questions and concerns have been answered and patient agrees with the plan. Orders: Orders MR lumbar spine wo con Today M47.816 - Spondylosis without myelopathy or radiculopathy, lumbar region, M54.16 - Radiculopathy, lumbar region Medications: New tizanidine do not drive while taking this medication. Do not combine with alcohol/MUSSEL OPENER depressants. 2 mg PO BEDTIME PRN 30 tabs 0RF muscle spasticity Coding Level of Care Code New Pt Level 4 (74490) Diagnoses Lumbar radiculopathy M54.16 Lumbar spondylosis M47.816 Facet arthritis of lumbar region M47.816
[2022-09-03 11:14] VITALS: BP 130/72; PULSE 78; RESP 16; O2SAT 96; BMI 27.4
== END 2022-09-03 11:45 | disposition home or self-care (01) ==
PROVIDERS: PCP Internal Medicine; Visit Provider Registered Nurse Emergency
DX: M54.16 Radiculopathy, lumbar region (principal); M47.816 Spondylosis without myelopathy or radiculopathy, lumbar region
CPT/HCPCS: 99204

== ENCOUNTER → 2022-09-03 10:46 | Outpatient (BNVA) | payer OTHER, SELFPAY | PROVIDERS: PCP Internal Medicine; Visit Provider Registered Nurse Emergency | DX: M54.16 Radiculopathy, lumbar region (principal); M47.816 Spondylosis without myelopathy or radiculopathy, lumbar region | CPT/HCPCS: 99202 ==

== ENCOUNTER 2022-09-09 16:00 | Outpatient (RCR) | payer OTHER, SELFPAY ==
--- NOTE | 2022-07-28 16:20 | MHC.PT.EP ---
[facility] [place] [facility] [place] [facility] [place] [facility] [address] Yadiel Alvarado [address] [phone] F: [phone] F: [phone] F: [phone] F: [phone] Physical Therapy Plan of Care Date of Evaluation: Date of Surgery: Diagnosis: This is a 56 yo female presenting to skilled PT with a script for pain in R hip. Assessment: This is a 56 yo female presenting to skilled PT with a script for pain in R hip. Patient reporting ongoing hip pain now since February. She states that she takes care of her [id number] and was going up and down the stairs multiple times a day and thinks this was causing her to have pain. Today pain is located at the R glut and is described as deep inside and inflamed . Patient also reporting that she also gets Achilles pain that is described as burning but this is usually in weightbearing. Pain increases with walking (has to walk with a limp) and laying on her back at night. Pain improves with meloxicam and Aleve. Her pain is pretty much constant. Assessment reveals pain that ranges up to a 9/10. Patient demos decreased lumbar and hip ROM, strength of core and gluts, she is TTP at piriformis with + pain provocation with SIJ testing. Based on functional limitations, impaired QOL and pain tolerance patient is a good candidate for skilled PT 2x/wk for 4wks. Frequency and Duration: The patient will be seen 2x/wk for 4wks Short Term Goals: I in HEP in 2wks Demo equal ilium and sacral alignment without pain during palpation in 2 wks Pain will centralize in 2 wks Report 50% improvement in symptoms in 3wks Human Resources Support Specialist Goals: Improve hip MMT by at least 1 grade in 4wks Improve pain to no more than 2/10 at the worst in 4wks Improve LEFs by at least 5 points in 4wks Demo proper squat and lift techniques without pain in 4wks Treatment Plan: Modalities to reduce pain, spasms and effusion. Manual therapy to restore motion and function. Therapeutic exercise to improve strength and flexibility. Neuromuscular re-education for posture and balance. Therapeutic activities to return to functional activities of daily living. Electronically signed by: Sujey Luong PT Please sign and return to therapist. Thank you for your referral.
--- NOTE | 2022-10-09 10:40 | MHC.PT.DC ---
[facility] [place] Office [place] Office [place] Office [address] Bl[address] Alvarado [address] [phone] F: [phone] F: [phone] F: [phone] F: [phone] Physical Therapy Discharge Report Diagnosis: This is a 56 yo female presenting to skilled PT with a script for pain in R hip. Date of Surgery: Date of Evaluation: 07/28/22 Date of Discharge: 10/09/22 Treatments to Date: 3 Cancellations to Date: 0 No Shows to Date: 0 Discharge Status: Patient Elected to Stop Visit Non-compliance Discharge Summary: Patient with poor compliance with appointments, multiple no shows and cancellations. Due to attendance policy, DC'd from PT. Chart was closed after 30 days of not hearing from the patient. Electronically signed by: Sujey Luong PT Please sign and return to therapist. Thank you for your referral.
== END 2022-10-09 10:40 | disposition home or self-care (01) ==
LOC: HO.PTCHIC 16:00
PROVIDERS: PCP Internal Medicine; Visit Provider Internal Medicine
DX: M25.551 Pain in right hip (principal)
CPT/HCPCS: 97110; 97140; 97161; 97162; 97164

== ENCOUNTER 2022-09-17 08:36 | Outpatient (AMB) | payer OTHER, SELFPAY ==
--- NOTE | 2022-09-17 09:35 | AM.OFFWIN_ITS ---
Intake Vital Signs 09/17/22 09:41 BP 124/74 Pulse 68 Pulse Source Pulse Oximeter Pulse Oximetry (%) 98 Oxygen Delivery Method Room Air Intake Visit Reasons: EP LT arm tingling weak,numb, bp 130/100 Intake Note: Patient here because she noticed while at work she noticed her left arm started to get tingling and numbness she has not done anything over exerting herself or even using that arm. She has a hx of lumbar issues and has been having neck pain lately. Patient Tobacco Use Status: Never used Tobacco Allergies No Known Allergies [No Known Allergies*] Allergy (Verified 09/17/22 09:41) Do you need a note to return to daycare/school/sports/work: Yes HPI EP LT arm tingling weak,numb, bp 130/100 HPI Details 56-year-old female patient presents today with complaints of left lower arm/wrist tingling. She denies any injury to her arm, hand, or neck. She gregg es any radiation of pain from her neck distally down her arm. She reports some mild weakness of her left hand. 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 She is on meloxicam, tizanidine, and recently completed a course of prednisone from her PCP for lower back pain. She reports having a lumbar MRI scheduled in a couple of months. [facility] Medical History Anxiety, generalized Atopic dermatitis Depression, major, recurrent Herpes labialis Hx of cold sores Hx of rosacea Well woman exam Surgical History Hx of appendectomy Hx of cholecystectomy Tubal ligation status Family History Mother Family hx of hypertension Family history of Alzheimer's disease Father No problems noted. Brother No problems noted. Brother No problems noted. Brother No problems noted. Brother No problems noted. Social History Housing: House Alcohol intake: current Alcohol intake frequency: a few times a month Patient Tobacco Use Status: Never used Tobacco e-Cigarette/Vaping Use: Never Used Current occupational status: employed Cognitive needs: No Hearing needs: No Vision needs: No Female Reproductive History Menstrual Age of Menarche: 14 Review of Systems Const All systems reviewed & are unremarkable except as noted in HPI and below Neuro Reports Abnormal speech present Physical Exam Vital Signs: Last Vital Signs Pulse 68 09/17/22 09:41 BP 124/74 09/17/22 09:41 Pulse Ox 98 09/17/22 09:41 Oxygen Delivery Method Room Air 09/17/22 09:41 Const General: cooperative, healthy appearing and no acute distress Neck Other: Full cervical range of motion, negative Spurling's Resp Effort & Inspection: normal respiratory effort and able to speak in complete sentences Auscultation: clear to auscultation bilaterally Cardio Jugular venous distension: no JVD Palpation: normal PMI Rate: regular rate Rhythm: regular rhythm Skin General skin exam: no rashes or lesions noted Neuro General: gait normal and deep tendon reflexes 2+ bilaterally Cranial nerves: Yes Normal facial strength present and Yes Ability to bilaterally elevate shoulders present Cognition (Neuro): normal cognition Speech: Abnormal speech present Gait exam (Neuro): Normal gait present Motor exam (neuro): 5/5 motor strength present throughout (Very mildly reduced brush washer strength on the left) Extrem General: Yes capillary refill normal and Yes no clubbing, cyanosis or edema Left upper extremity: normal to inspection, full ROM, normal capillary refill, no joint enlargement and wrist (+Tinels on left) Psych Appearance: grossly normal Mental Status: mental status grossly normal Speech and movement: Normal speech and movement present Assessment & Plan Assessment & Plan (1) Carpal tunnel syndrome of left wrist: Code(s): G56.02 - Carpal tunnel syndrome, left upper limb Plan: Patient with symptoms and exam consistent with carpal tunnel syndrome on the left wrist. She is already on meloxicam, and just completed a course of prednisone(for lower back pain) which did not help her wrist symptoms. I advised she purchased a carpal tunnel brace [id number] at a local store. And I will refer her to orthopedics for further evaluation of this. She agrees to plan. Orders: Referrals Orthopedics Referral G56.02 - Carpal tunnel syndrome, left upper limb Coding Level of Care Code Est Pt Level 3 (28721) Diagnoses Carpal tunnel syndrome of left wrist G56.02
[2022-09-17 09:41] VITALS: BP 124/74; PULSE 68; O2SAT 98
== END 2022-09-17 10:10 | disposition home or self-care (01) ==
PROVIDERS: PCP Internal Medicine; Visit Provider Nurse Practitioner Family
DX: G56.02 Carpal tunnel syndrome, left upper limb (principal)
CPT/HCPCS: 99213

== ENCOUNTER 2022-09-17 10:48 | Outpatient (REF) | payer OTHER, SELFPAY ==
--- NOTE | ~2022-09-17 | MR_ITS ---
EXAMINATION: MR LUMBAR SPINE WITHOUT CONTRAST CLINICAL INFORMATION: Lumbar radiculopathy. COMPARISON: Lumbar spine radiographs 09/02/2022. TECHNIQUE: MRI of the lumbar spine was obtained using routine sequences without contrast. FINDINGS: Alignment is normal. Vertebral body heights are preserved. No acute bone marrow signal changes. There is disc desiccation at multiple levels without substantial loss of intervertebral disc height. The tip of the conus medullaris is located at L1-L2. No mass effect on the conus. Visualized distal cord signal intensity is normal. At L1-L2 the annular contour is normal. No canal stenosis. No mass effect on the traversing or foraminal nerve roots. At L2-L3 the annular contour is normal. No canal stenosis. No mass effect on the traversing or foraminal nerve roots. At L3-L4 there is a shallow left far lateral protrusion superimposed upon a slightly bulging disc. No canal stenosis. No mass effect on the traversing or foraminal nerve roots. At L4-L5 there is a slightly bulging disc. Bilateral facet degenerative change. No canal stenosis. No mass effect on the traversing or foraminal nerve roots. At L5-S1 there is a right foraminal annular fissure associated with a slightly bulging disc. Bilateral facet degenerative change. No canal stenosis. No mass effect on the traversing or foraminal nerve roots. Limited visualization of the retroperitoneal anatomy reveals no abnormal finding. Psoas and paraspinal muscle groups are symmetric. MR/MR lumbar spine wo con IMPRESSION: There is disc degeneration at multiple levels within the mid to lower lumbar spine. No canal stenosis. No mass effect on the traversing or foraminal nerve roots.
== END 2022-09-17 10:49 | disposition home or self-care (01) ==
LOC: HO.MRI 10:48
PROVIDERS: PCP Internal Medicine; Visit Provider Registered Nurse Emergency
DX: M54.16 Radiculopathy, lumbar region (principal); M47.816 Spondylosis without myelopathy or radiculopathy, lumbar region
CPT/HCPCS: 72148

== ENCOUNTER 2022-10-29 10:38 | Outpatient (AMB) | payer OTHER, SELFPAY ==
--- NOTE | 2022-10-29 10:50 | A.OFFVIS_ITS ---
Intake Vital Signs 10/29/22 10:55 Height 5 ft 8 in Weight 178 lb BMI 27.1 BP 130/72 Blood Pressure Location Rt brachial Position Sitting Respiration 18 Pulse 77 Pulse Source Pulse Oximeter Pulse Oximetry (%) 96 Oxygen Delivery Method Room Air Intake Visit Reasons: MRI FOLLOW UP Allergies No Known Allergies [No Known Allergies*] Allergy (Verified 10/29/22 10:56) HPI HPI Comments History of Present Illness Details Patient presents back to the office today for follow up. She reports having problems with her insurance since last visit which caused her to miss the last follow up appointment. MRI reviewed with patient today. Since last visit patient states she went to [place] and had facet blocks which provided her 3 or 4 days of pain relief. She believes they used lidocaine and methylprednisolone. She provided a note with limited details of the procedure to be scanned into her chart. Patient c/o lower back pain with burning pain down the right leg. She is taking NSAIDs and doing home PT without relief. She tried muscle relaxers but did not notice any benefit. Prior: Mandie is a pleasant 56-year-old female who presents to the office today for evaluation and management of her chronic lower back pain. Patient reports that she has had this pain for greater than 10 years. Pain today is a 9/10 with radiation laterally down the right leg into the right foot. She has tried physi brown therapy, chiropractor, massage, NSAIDs, lidocaine patches, ice, heat but none have improved her pain. Her last MRI was greater than 5 years ago; completed in [place] where she subsequently had injections and lumbar radiofrequency ablation. The radiofrequency ablation provided her approximately 3 years of pain relief but the pain has since returned. Patient does endorse pain down the right leg into the foot with some associated numbness and tingling. Patient denies red flag symptoms including loss of bowel, bladder or saddle anesthesia. In terms of muscle damage condition is described as hot, burning, tingling, pins and needles. Pain is intermittent and worse during the day and in the middle the night. Patient reports that the pain is negatively impacting her general activity, normal work, recreational activities, sleep and walking. The patient's past medical history is significant for depression, anxiety, headaches and arthritis. Patient denies implantable devices, pacemaker and/or defibrillator. Patient endorses social alcohol use. Denies use of tobacco, nicotine or illicit substances. [facility] Medical History Anxiety, generalized Atopic dermatitis Depression, major, recurrent Herpes labialis Hx of cold sores Hx of rosacea Well woman exam Surgical History Hx of appendectomy Hx of cholecystectomy Tubal ligation status Family History Mother Family hx of hypertension Family history of Alzheimer's disease Father No problems noted. Brother No problems noted. Brother No problems noted. Brother No problems noted. Brother No problems noted. Social History Housing: House Alcohol intake: current Alcohol intake frequency: a few times a month Patient Tobacco Use Status: Never used Tobacco e-Cigarette/Vaping Use: Never Used Current occupational status: employed Cognitive needs: No Hearing needs: No Vision needs: No Female Reproductive History Menstrual Age of Menarche: 14 Review of Systems Const All systems reviewed & are unremarkable except as noted in HPI and below Physical Exam Vital Signs: Last Vital Signs Pulse 77 10/29/22 10:55 Resp 18 10/29/22 10:55 BP 130/72 10/29/22 10:55 Pulse Ox 96 10/29/22 10:55 Oxygen Delivery Method Room Air 10/29/22 10:55 BMI result Body Mass Index 27.1 General: awake, alert, oriented. Answers questions appropriately. Fully engaged in examination. Skin: warm, dry, intact without visible rashes or lesions. HEENT: Normocephalic. Conjuntivae clear without exudate. Sclera non-icteric. Hearing intact. Cardiac: External chest normal in appearance. Respiratory: No signs of trauma. No signs of respiratory distress. No cough, audible wheezing or stridor. Abdomen: without gross distension. Neurological: Oriented to person, place, time and situation. Thought process intact. No gait abnormalities appreciated. Psychiatric: Appropriate mood and affect. Good judgment and insight. Back/Spine/Pelvis Other: Able to stand on bilateral tiptoes and bilateral heels. Able to transition from sit to stand unassisted. Ambulates with bilaterally normal heel strike and toe off Visual inspection without gross abnormality Tender to palpation over PSIS and lumbar paraspinal muscles Nontender to palpation over midline lumbar vertebrae ROM: extension to 15 degrees. flexion to 60 degrees Strength: 5/5 BLE Sensation: intact and symmetric BLE DTR: intact and symmetric Straight leg raises with and without dorsiflexion positive bilaterally, R>L Facet loading positive bilaterally REKHA positive bilaterally, R>L SI compression negative bilaterally Results Reviewed Results Reviewed: 09/17/2022 EXAMINATION: MR LUMBAR SPINE WITHOUT CONTRAST CLINICAL INFORMATION: Lumbar radiculopathy. COMPARISON: Lumbar spine radiographs 09/02/2022. TECHNIQUE: MRI of the lumbar spine was obtained using routine sequences without contrast. FINDINGS: Alignment is normal. Vertebral body heights are preserved. No acute bone marrow signal changes. There is disc desiccation at multiple levels without substantial loss of intervertebral disc height. The tip of the conus medullaris is located at L1-L2. No mass effect on the conus. Visualized distal cord signal intensity is normal. At L1-L2 the annular contour is normal. No canal stenosis. No mass effect on the traversing or foraminal nerve roots. At L2-L3 the annular contour is normal. No canal stenosis. No mass effect on the traversing or foraminal nerve roots. At L3-L4 there is a shallow left far lateral protrusion superimposed upon a slightly bulging disc. No canal stenosis. No mass effect on the traversing or foraminal nerve roots. At L4-L5 there is a slightly bulging disc. Bilateral facet degenerative change. No canal stenosis. No mass effect on the traversing or foraminal nerve roots. At L5-S1 there is a right foraminal annular fissure associated with a slightly bulging disc. Bilateral facet degenerative change. No canal stenosis. No mass effect on the traversing or foraminal nerve roots. Limited visualization of the retroperitoneal anatomy reveals no abnormal finding. Psoas and paraspinal muscle groups are symmetric. MR/MR lumbar spine wo con IMPRESSION: There is disc degeneration at multiple levels within the mid to lower lumbar spine. No canal stenosis. No mass effect on the traversing or foraminal nerve roots. Assessment & Plan Assessment & Plan (1) Lumbar radiculopathy: Code(s): M54.16 - Radiculopathy, lumbar region (2) Lumbar spondylosis: Code(s): M47.816 - Spondylosis without myelopathy or radiculopathy, lumbar region (3) Facet arthritis of lumbar region: Code(s): M47.816 - Spondylosis without myelopathy or radiculopathy, lumbar region Plan Mandie is a very pleasant 56-year-old female who presents back to the office today for follow up. MRI reviewed with patient today. Patient has failed conservative therapy including NSAIDs, muscle relaxers, heat, ice, topical medications, physical therapy, massage and chiropractor. She continues with meloxicam as needed for pain and is prescribed by her primary care doctor. Discussed options for treatment including diagnostic interventional testing, epidural steroid injections, peripheral nerve stimulation with Sprint, RFA and more permanent neuromodulation. Patient has history of radiofrequency ablation to the lower back in 2017 that provided her 3 years of pain relief. She had recent L4-5 and L5-S1 therapuetic facet blocks in [place] that only provided 3-4 days of pain relief. She would like to proceed with repeat RFA given positive results from initial RFA. Will schedule for Fluoroscopy guided bilateral L4-5, L5-S1 RFA with MAC. Will try gabapentin 100 mg po tid for RLE neuropathy. All questions and concerns have been answered and patient agrees with the plan. Medications: New gabapentin 100 mg PO TID 90 caps 0RF neuropathy Coding Level of Care Code Est Pt Level 4 (27841) Diagnoses Lumbar radiculopathy M54.16 Lumbar spondylosis M47.816 Facet arthritis of lumbar region M47.816
[2022-10-29 10:55] VITALS: BP 130/72; PULSE 77; RESP 18; O2SAT 96; BMI 27.1
== END 2022-10-29 11:46 | disposition home or self-care (01) ==
PROVIDERS: PCP Internal Medicine; Visit Provider Registered Nurse Emergency
DX: M54.16 Radiculopathy, lumbar region (principal); M47.816 Spondylosis without myelopathy or radiculopathy, lumbar region
CPT/HCPCS: 99214

== ENCOUNTER → 2022-10-29 10:38 | Outpatient (BNVA) | payer OTHER, SELFPAY | PROVIDERS: PCP Internal Medicine; Visit Provider Registered Nurse Emergency | DX: M47.26 Other spondylosis with radiculopathy, lumbar region (principal) | CPT/HCPCS: 99212 ==

== ENCOUNTER 2023-01-06 14:42 | Outpatient (AMB) | payer OTHER, SELFPAY ==
[2023-01-06 14:43] VITALS: BP 110/70; PULSE 72; O2SAT 97; BMI 27.3
--- NOTE | 2023-01-06 14:43 | A.OFFPC_ITS ---
Vital Signs 01/06/23 14:43 Height 5 ft 8 in Weight 179 lb 6 oz BMI 27.3 BP 110/70 Blood Pressure Location Rt brachial Position Sitting Pulse 72 Pulse Source Pulse Oximeter Pulse Oximetry (%) 97 Oxygen Delivery Method Room Air Intake Visit Reasons: 4 Month follow up Allergies No Known Allergies [No Known Allergies*] Allergy (Verified 01/06/23 14:43) Medication List - Last Reconciled 01/06/23 by Carl Kwon MD cholecalciferol (vitamin D3) 25 mcg PO DAILY 90 days fluticasone propionate 50 mcg/actuation (Flonase Allergy Relief) 1 spray intranasal DAILY gabapentin 100 mg PO TID mometasone 0.1% 1 appl topical DAILY 30 days rhubarb root extract (Estroven Complete Menopause Relief) mg PO sertraline 25 mg PO DAILY 90 days valacyclovir (Valtrex) 500 mg PO BID Tobacco use date assessed: 01/06/23 Dental Screening Dental Screen Date: 01/06/23 Did you have a dental visit in the last 12 months?: Yes Did you have a dental problem in the last 6 months where you did not have access to dental care?: No Was dental information given to patient?: Patient has dentist HPI 4 Month follow up HPI Details Patient is a 57 year came today regular follow-up appointment Patient says that she has changed job and her back pain is better She has a new job [employer] cancel which is much easier on her back Depression/anxiety: Patient is on sertraline 25 mg and is doing well She had labs done in August I see that her liver enzymes has gotten worse Also her fasting sugar was 103 We will be repeating labs again. Patient will return in 4 months for follow-up appointment. [facility] Medical History Well woman exam Anxiety, generalized Depression, major, recurrent Herpes labialis Atopic dermatitis Hx of rosacea Hx of cold sores Surgical History Hx of cholecystectomy Tubal ligation status Hx of appendectomy Family History Mother Family hx of hypertension Family history of Alzheimer's disease Father No problems noted. Brother No problems noted. Brother No problems noted. Brother No problems noted. Brother No problems noted. Social History Housing: House Alcohol intake: current Alcohol intake frequency: a few times a month Patient Tobacco Use Status: Never used Tobacco e-Cigarette/Vaping Use: Never Used Current occupational status: employed Cognitive needs: No Hearing needs: No Vision needs: No Female Reproductive History Menstrual Age of Menarche: 14 Questionnaire Thrive Questionnaire Date Thrive assessed: 05/07/22 AUDIT C Alcohol Use Questionnaire (AUDIT-C) 1. How often do you have a drink containing alcohol?: Never 3. How often do you have six or more drinks on one occasion?: Never Total Score: 0 Score Reviewed/Action Taken: Yes KAMLESH-7 AMB Questionnaire KAMLESH-7 Date KAMLESH - 7 assessed: 05/07/22 Source: Developed by Drs. Crow Burks, Kavita Pace, Chino Corrales and colleagues, with an educational yousif from [employer]. Review of Systems Const Denies chills and Denies fever(s) ENT Denies epistaxis and Denies nasal discharge Card Denies chest pain Resp Denies chest congestion, Denies cough and Denies hemoptysis GI Denies diarrhea and Denies nausea Skin/Breast Denies rash Neuro Reports no additional complaints Psych Reports no additional complaints Endo Reports no additional complaints Physical exam (Primary Care) Vital Signs: Last Vital Signs Pulse 72 01/06/23 14:43 BP 110/70 01/06/23 14:43 Pulse Ox 97 01/06/23 14:43 Oxygen Delivery Method Room Air 01/06/23 14:43 BMI result Body Mass Index 27.3 Tobacco/Smoking Status: Tobacco use Status Tobacco use date assessed 01/06/23 01/06/23 14:44 Patient Tobacco Use Status Never used Tobacco 01/06/23 14:44 e-Cigarette/Vaping Use Never Used 01/06/23 14:44 Thrive Assessment: Date of Thrive Assessment Date Thrive assessed 05/07/22 01/06/23 14:44 Const General: cooperative, comfortable and no acute distress Orientation/consciousness: patient oriented x3 HENMT Head: Yes normocephalic Eyes General: appearance normal, both eyes and all related structures Neck Neck: Yes supple Resp Effort & Inspection: normal respiratory effort, no cough and no stridor Cardio Rhythm: regular rhythm Heart sounds: S1 normal heart sound present and S2 normal heart sound present Skin General skin exam: turgor normal Neuro General: patient oriented x3, tone normal and moves all extremities Extrem Right lower extremity: no edema Left lower extremity: no edema Assessment and Plan Assessment & Plan (1) Depression, major, recurrent: Code(s): F33.9 - Major depressive disorder, recurrent, unspecified Qualifiers: Active/Remission status: in full remission Qualified Code(s): F33.42 - Major depressive disorder, recurrent, in full remission (2) Anxiety, generalized: Code(s): F41.1 - Generalized anxiety disorder (3) Chronic GERD: Code(s): K21.9 - Gastro-esophageal reflux disease without esophagitis (4) LFT elevation: Code(s): R79.89 - Other specified abnormal findings of blood chemistry (5) Impaired fasting blood sugar: Code(s): R73.01 - Impaired fasting glucose Plan Patient is a 57 year came today regular follow-up appointment Patient says that she has changed job and her back pain is better She has a new job [employer] which is much easier on her back Depression/anxiety: Patient is on sertraline 25 mg and is doing well She had labs done in August I see that her liver enzymes has gotten worse Also her fasting sugar was 103 We will be repeating labs again. Patient will return in 4 months for follow-up appointment. Orders: Orders Hemoglobin A1c Today F33.9 - Major depressive disorder, recurrent, unspecified, F41.1 - Generalized anxiety disorder, K21.9 - Gastro-esophageal reflux disease without esophagitis, R73.01 - Impaired fasting glucose, R79.89 - Other specified abnormal findings of blood chemistry Comprehensive Met. Panel Today F33.9 - Major depressive disorder, recurrent, unspecified, F41.1 - Generalized anxiety disorder, K21.9 - Gastro-esophageal reflux disease without esophagitis, R73.01 - Impaired fasting glucose, R79.89 - Other specified abnormal findings of blood chemistry Medications: Refilled cholecalciferol (vitamin D3) 25 mcg PO DAILY 90 days 90 caps 1RF sertraline 25 mg PO DAILY 90 days 90 tabs 1RF mometasone 0.1% 1 appl topical DAILY 30 days 45 grams 0RF Coding Level of Care Code Est Pt Level 4 (37045) Diagnoses Recurrent major depressive disorder, in full remission F33.42 Active/Remission status: in full remission Anxiety, generalized F41.1 Chronic GERD K21.9 LFT elevation R79.89 Impaired fasting blood sugar R73.01
== END 2023-01-06 15:15 | disposition home or self-care (01) ==
PROVIDERS: PCP Internal Medicine; Visit Provider Internal Medicine
DX: F33.42 Major depressive disorder, recurrent, in full remission (principal); F41.1 Generalized anxiety disorder; K21.9 Gastro-esophageal reflux disease without esophagitis; R79.89 Other specified abnormal findings of blood chemistry; R73.01 Impaired fasting glucose
CPT/HCPCS: 99214

== ENCOUNTER 2023-02-02 08:36 | Outpatient (REF) | payer OTHER, SELFPAY ==
[2023-02-02 13:48] LABS: CT PCR NOT DETECTED (Not Detect.); NG PCR NOT DETECTED (Not Detect.)
[2023-02-03 12:59] LABS: BV Int Neg Control Negative (Negative); BV Int Pos Control Positive (Positive)
[2023-02-05 21:38] LABS: HPV mRNA E6/E7 rflx Not Detected (Not Detected)
== END 2023-02-02 08:37 | disposition home or self-care (01) ==
LOC: HO.LNP 08:36
PROVIDERS: Visit Provider Advanced Practice Midwife
DX: Z01.419 Encounter for gynecological examination (general) (routine) without abnormal findings (principal); N89.8 Other specified noninflammatory disorders of vagina; Z11.3 Encounter for screening for infections with a predominantly sexual mode of transmission; Z87.42 Personal history of other diseases of the female genital tract; Z86.19 Personal history of other infectious and parasitic diseases; Z79.899 Other long term (current) drug therapy
CPT/HCPCS: 0353U; 87480; 87510; 87624; 87660; 88142; 99396

== ENCOUNTER 2023-02-02 08:36 | Outpatient (AMB) | payer OTHER, SELFPAY ==
--- NOTE | 2023-02-02 08:50 | MHC.OFFVIS ---
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 Intake Note: c/o of vaginal dryness Quarter Supervisor Required: Yes Quarter Supervisor Language: Lao Information Interpreted: non-clinical & clinical Network Diagnostic Support Specialist: Network Diagnostic Support Specialist Present Accompanied by: Self / Same As Patient Allergies No Known Allergies [No Known Allergies*] Allergy (Verified 02/02/23 08:55) Medication List - Last Reconciled 02/02/23 by Jessica Muñoz CNM cholecalciferol (vitamin D3) 25 mcg PO DAILY 90 days fluticasone propionate 50 mcg/actuation (Flonase Allergy Relief) 1 spray intranasal DAILY gabapentin 100 mg PO TID mometasone 0.1% 1 appl topical DAILY 30 days rhubarb root extract (Estroven Complete Menopause Relief) mg PO sertraline 25 mg PO DAILY 90 days valacyclovir (Valtrex) 500 mg PO BID Post menopausal: Yes 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 She mentioned vaginal dryness but she says it is not actually a problem for she uses [id number] water-based lubricants and it is fine. She is not having any particular worries she does have more aches and pains but she is doing stretches every morning and YouTube exercises for sciatica and lower back pain and she says they help. Her doctor gave her medications but she does not like them and does not like their side effects and is not 1 for taking medicines she and her checked the ingredients on everything and are very health conscious and avoid grease and excess carbs and checked labels on everything and are very careful with their health. She thinks she had an abnormal Pap smear years ago but does not remember details. the record is unclear in [facility] and historical visits the only Paps found were negative Paps with negative HPV in 2020 in 2021. [facility] Medical History Well woman exam Anxiety, generalized Depression, major, recurrent Herpes labialis Atopic dermatitis Hx of rosacea Hx of cold sores Surgical History Hx of cholecystectomy Tubal ligation status Hx of appendectomy Family History Mother Family hx of hypertension Family history of Alzheimer's disease Father No problems noted. Brother No problems noted. Brother No problems noted. Brother No problems noted. Brother No problems noted. Social History (Updated 02/02/23 @ 08:57 by Laverne Kruse [facility]) Household Members: Spouse Housing: House Alcohol intake: current Alcohol intake frequency: a few times a month Patient Tobacco Use Status: Never used Tobacco e-Cigarette/Vaping Use: Never Used Current occupational status: employed Current occupation: [employer] Sexually active: Yes Sexual orientation: Straight/Heterosexual Gender identity: Female Cognitive needs: No Hearing needs: No Vision needs: No Female Reproductive History Menstrual Age of Menarche: 14 control method: permanent sterilization Total pregnancies: 3 Full term: 3 Number of Living Children: 3 Date of last pap smear: 01/30/22 (2021-negative with negative HPV,2019-negative with negative HPV, 2016 negative with positive HPV) History of abnormal pap smear: Yes ( 17- Pap with positive HPV.) Date of Mammogram: 03/12/22 Physical Exam Vital Signs: BMI result Body Mass Index 26.5 Const General: healthy appearing, comfortable, no acute distress, well developed and alert Nutritional Appearance: average body habitus Orientation/consciousness: patient oriented x3 Limitations: no limitations HEENT Head: Yes normocephalic Neck Neck: Yes normal visual inspection Thyroid: Thyroid normal Chest Chest palpation & inspection: normal inspection of the chest Breast/axilla inspection: normal inspection of the breasts and normal inspection of the axillae Breast/axilla palpation: normal palpation of the breasts and normal palpation of the axillae Resp Effort & Inspection: normal respiratory effort GI Inspection: Yes normal to inspection, No Abdominal wall edema and No distended Palpation (GI): Soft to palpation and nontender Other: Normal history tutor exam vagina pink moist postmenopausal. Cervix is multiparous scarred with multiple pink spots on surface. Cervix is mobile nontender uterus small midposition nontender good tone with Kegel adnexa not enlarged. General: Yes bladder normal to palpation External Female Exam: normal external appearance and normal appearance of the urethra Speculum Exam - Vagina: normal appearance of the vagina, normal palpation and normal vaginal discharge Speculum Exam - Cervix: normal appearance of the cervix, normal palpation and nontender Bimanual exam- vagina & uterus: normal bimanual exam, normal palpation, uterine size normal, bladder normal to palpation, consistency normal, normal palpation, uterine mobility normal, uterine shape normal, No Cervical tenderness present, non-tender and no cervical motion tenderness Bimanual Exam- Adnexa, other: normal adnexae, no masses, normal and No adnexal tenderness Neuro General: patient oriented x3 Assessment & Plan Assessment & Plan (1) Hx of abnormal cervical Pap smear: Comment: 2016 pos hpv, neg since; 01/29/2022 Pap is negative with negative HPV. Code(s): Z87.42 - Personal history of other diseases of the female genital tract (2) Well woman exam with routine gynecological exam: Code(s): Z01.419 - Encounter for gynecological examination (general) (routine) without abnormal findings (3) Hx of herpes genitalis: Code(s): Z86.19 - Personal history of other infectious and parasitic diseases Plan -----Discussed in this visit the following: healthy balanced diet, regular and consistent exercise, getting recommended health screens, doing the best she can for her particular health concerns, kegel exercises, pap smear screening and followup recommendations, mammography screening and SBE, normal changes in cycles in her life stage--- . EC W and historical data searched to ensure S thorough review of Pap smear history as possible copy of a Pap smear done in 2017 from another site shows negative Pap with positive HPV on strength of this and pink spots on cervix that patient does not remember whether not she had cervical biopsies, so Pap was repeated today as well. Patient is taking excellent care of herself she and her are engaging in very good health practices and we discussed them she is getting her next mammogram in February and she is going to be getting some other fasting lab work and is keeping up to date on all of her health care will see her in 1 year we will let her know if there is any abnormality. Orders: Orders CT NG by PCR Today Z11.3 - Encounter for screening for infections with a predominantly sexual mode of transmission Bacterial Vaginosis Panel Today Z11.3 - Encounter for screening for infections with a predominantly sexual mode of transmission Pap Smear Today Z87.42 - Personal history of other diseases of the female genital tract Coding Level of Care Code Est Pt Prev Care 40-64y(77252) Diagnoses Hx of abnormal cervical Pap smear Z87.42 Well woman exam with routine gynecological exam Z01.419 Hx of herpes genitalis Z86.19
[2023-02-02 08:54] VITALS: BMI 26.5
== END 2023-02-02 10:34 | disposition home or self-care (01) ==
PROVIDERS: Visit Provider Advanced Practice Midwife
DX: Z01.419 Encounter for gynecological examination (general) (routine) without abnormal findings (principal); Z87.42 Personal history of other diseases of the female genital tract; Z86.19 Personal history of other infectious and parasitic diseases
CPT/HCPCS: 99396

== ENCOUNTER 2023-04-17 08:07 | Outpatient (REF) | payer OTHER, SELFPAY ==
--- NOTE | ~2023-04-17 | MM_ITS ---
EXAMINATION: MM SCREENING DIGITAL BREAST TOMOSYNTHESIS, BILATERAL CLINICAL INFORMATION: Screening. Asymptomatic. COMPARISON: Mammography: 03/12/2022, 02/26/2021, and studies dating back to July 01, 2017 TECHNIQUE: Digital breast tomosynthesis is performed in both the craniocaudal and mediolateral oblique views along with computer-aided detection (CAD). Synthesized 2D images are generated from the tomosynthesis. In addition, an extra full-field right cc view was provided for anterior compression. FINDINGS: The breasts are heterogeneously dense, which may obscure small masses (ACR BI-RADS breast composition Category c). The breast parenchyma is heterogeneously dense and somewhat nodular, stable from prior examinations. There are several bilateral stable parenchymal asymmetries. These are unchanged and benign. There is no developing mass, architectural distortion, or suspicious calcifications. There are subtle bilateral stable punctate and vascular calcifications. These are benign. There is no skin or axillary abnormality. MM/MM tomosynthesis screening BI IMPRESSION: No mammographic evidence of malignancy. Stable benign findings. ASSESSMENT: BI-RADS BI-RADS 2 - Benign Findings RECOMMENDATION: Routine annual mammography screening. 1 year F/U This examination should not preclude the clinical evaluation of a suspicious palpable abnormality. This patient's information was entered into a reminder system with a target due date for their next mammogram.
== END 2023-04-17 08:08 | disposition home or self-care (01) ==
LOC: HO.MAMMO 08:07
PROVIDERS: PCP Internal Medicine; Visit Provider Internal Medicine
DX: Z12.31 Encounter for screening mammogram for malignant neoplasm of breast (principal)
CPT/HCPCS: 77063; 77067

== ENCOUNTER → 2023-04-17 08:30 | Outpatient (BNV) | payer OTHER, SELFPAY | PROVIDERS: PCP Internal Medicine; Visit Provider Radiology Diagnostic Radiology | DX: Z12.31 Encounter for screening mammogram for malignant neoplasm of breast (principal) | CPT/HCPCS: 77063; 77067 ==

== ENCOUNTER 2023-05-07 07:23 | Outpatient (REF) | payer OTHER, SELFPAY ==
[2023-05-07 12:01] LABS: Alanine Aminotransferase 49 U/L (0-31); Albumin Level 4.4 g/dL (3.5-5.0); Alkaline Phosphatase 85 U/L (39-117); Anion Gap 13 (12-20); Aspartate Amino Transferase 26 U/L (5-31); Bilirubin Total 0.6 mg/dL (0.0-1.0); Blood Urea Nitrogen 18 mg/dL (9-16); Calcium 10.1 mg/dL (8.4-10.2); Carbon Dioxide 30 mmol/L (22-29); Chloride 104 mmol/L (96-108); Estimated Glomerular Filt Rate > 60; Glucose Random 88 mg/dL (60-115); Potassium 4.4 mmol/L (3.3-5.1); Sodium 143 mmol/L (135-145); Total Protein 7.2 g/dL (6.5-8.0)
[2023-05-07 12:03] LABS: Estimated Average Glucose 117 mg/dL; Hemoglobin A1c % 5.7 % (<6.0)
== END 2023-05-07 07:24 | disposition home or self-care (01) ==
LOC: HO.HMGCLDS 07:23
PROVIDERS: PCP Internal Medicine; Visit Provider Internal Medicine
DX: F33.9 Major depressive disorder, recurrent, unspecified (principal); F41.1 Generalized anxiety disorder; K21.9 Gastro-esophageal reflux disease without esophagitis; R79.89 Other specified abnormal findings of blood chemistry; R73.01 Impaired fasting glucose
CPT/HCPCS: 36415; 80053; 83036

== ENCOUNTER 2023-05-12 14:28 | Outpatient (AMB) | payer OTHER, SELFPAY ==
[2023-05-12 14:37] VITALS: BP 118/70; PULSE 87; O2SAT 96; BMI 27.3
--- NOTE | 2023-05-12 14:37 | MHC.PC.OV ---
Vital Signs 05/12/23 14:37 Height 5 ft 8 in Weight 179 lb 6 oz BMI 27.3 BP 118/70 Blood Pressure Location Rt brachial Position Sitting Pulse 87 Pulse Source Pulse Oximeter Pulse Oximetry (%) 96 Oxygen Delivery Method Room Air Intake Visit Reasons: 4 month fu Allergies No Known Allergies [No Known Allergies*] Allergy (Verified 05/12/23 14:41) Medication List - Last Reconciled 05/12/23 by Carl Kwon MD cholecalciferol (vitamin D3) 25 mcg PO DAILY 90 days mometasone 0.1% 1 appl topical DAILY 30 days sertraline 25 mg PO DAILY 90 days valacyclovir (Valtrex) 500 mg PO BID Tobacco use date assessed: 05/12/23 Dental Screening Dental Screen Date: 05/12/23 Did you have a dental visit in the last 12 months?: Yes Did you have a dental problem in the last 6 months where you did not have access to dental care?: No Was dental information given to patient?: Patient has dentist HPI 4 month fu HPI Details Patient is a 57 year came today regular follow-up appointment Patient continued to have lumbar radiculitis radiating due right hip and upper thigh She is complaining of whole-body pain and pain in joints Complaining of headache and not been able to sleep at night I am starting her on amitriptyline 25 mg we will set up a telemedicine visit in 3 weeks to follow-up on that Also rheumatology referral placed for further evaluation Depression/anxiety: Patient is on sertraline 25 mg and is doing well Labs done recently reviewed with the patient [facility] Medical History Well woman exam Anxiety, generalized Depression, major, recurrent Herpes labialis Atopic dermatitis Hx of rosacea Hx of cold sores Surgical History Hx of cholecystectomy Tubal ligation status Hx of appendectomy Family History Mother Family hx of hypertension Family history of Alzheimer's disease Father No problems noted. Brother No problems noted. Brother No problems noted. Brother No problems noted. Brother No problems noted. Social History Household Members: Spouse Housing: House Alcohol intake: current Alcohol intake frequency: a few times a month Patient Tobacco Use Status: Never used Tobacco e-Cigarette/Vaping Use: Never Used Current occupational status: employed Current occupation: [employer] Sexual orientation: Straight/Heterosexual Gender identity: Female Cognitive needs: No Hearing needs: No Vision needs: No Female Reproductive History Menstrual Age of Menarche: 14 Questionnaire Thrive Questionnaire Date Thrive assessed: 05/07/22 AUDIT C Alcohol Use Questionnaire (AUDIT-C) 1. How often do you have a drink containing alcohol?: Never 3. How often do you have six or more drinks on one occasion?: Never Total Score: 0 Score Reviewed/Action Taken: Yes KAMLESH-7 AMB Questionnaire KAMLESH-7 Date KAMLESH - 7 assessed: 05/07/22 Source: Developed by Drs. Crow Burks, Kavita Pace, Chino Corrales and colleagues, with an educational yousif from [employer]. Review of Systems Const Denies chills and Denies fever(s) ENT Denies epistaxis and Denies nasal discharge Card Denies chest pain Resp Denies chest congestion, Denies cough and Denies hemoptysis GI Denies diarrhea and Denies nausea Skin/Breast Denies rash Neuro Reports no additional complaints Psych Reports no additional complaints Endo Reports no additional complaints Physical exam (Primary Care) Vital Signs: Last Vital Signs Pulse 87 05/12/23 14:37 BP 118/70 05/12/23 14:37 Pulse Ox 96 05/12/23 14:37 Oxygen Delivery Method Room Air 05/12/23 14:37 BMI result Body Mass Index 27.3 Tobacco/Smoking Status: Tobacco use Status Tobacco use date assessed 05/12/23 05/12/23 14:42 Patient Tobacco Use Status Never used Tobacco 05/12/23 14:42 e-Cigarette/Vaping Use Never Used 05/12/23 14:42 Thrive Assessment: Date of Thrive Assessment Date Thrive assessed 05/07/22 05/12/23 14:42 Const General: cooperative, comfortable and no acute distress Orientation/consciousness: patient oriented x3 HENMT Head: Yes normocephalic Eyes General: appearance normal, both eyes and all related structures Neck Neck: Yes supple Resp Effort & Inspection: normal respiratory effort, no cough and no stridor Cardio Rhythm: regular rhythm Heart sounds: S1 normal heart sound present and S2 normal heart sound present Skin General skin exam: turgor normal Neuro General: patient oriented x3, tone normal and moves all extremities Extrem Other: Joints are mobile, straight leg is negative both sides Right lower extremity: no edema Left lower extremity: no edema Assessment and Plan Assessment & Plan (1) Inflammatory arthritis: Code(s): M19.90 - Unspecified osteoarthritis, unspecified site (2) Facet arthritis of lumbar region: Code(s): M47.816 - Spondylosis without myelopathy or radiculopathy, lumbar region (3) Depression, major, recurrent: Code(s): F33.9 - Major depressive disorder, recurrent, unspecified Qualifiers: Active/Remission status: in full remission Qualified Code(s): F33.42 - Major depressive disorder, recurrent, in full remission (4) Anxiety, generalized: Code(s): F41.1 - Generalized anxiety disorder (5) Chronic GERD: Code(s): K21.9 - Gastro-esophageal reflux disease without esophagitis (6) LFT elevation: Code(s): R79.89 - Other specified abnormal findings of blood chemistry (7) Impaired fasting blood sugar: Code(s): R73.01 - Impaired fasting glucose (8) Headache syndrome: Code(s): G44.89 - Other headache syndrome (9) Difficulty sleeping: Code(s): G47.9 - Sleep disorder, unspecified Plan Patient is a 57 year came today regular follow-up appointment Patient continued to have lumbar radiculitis radiating due right hip and upper thigh She is complaining of whole-body pain and pain in joints Complaining of headache and not been able to sleep at night I am starting her on amitriptyline 25 mg we will set up a telemedicine visit in 3 weeks to follow-up on that Also rheumatology referral placed for further evaluation Depression/anxiety: Patient is on sertraline 25 mg and is doing well Patient has impaired fasting sugar but it is stable LFTs stable Labs done recently reviewed with the patient Orders: Referrals Rheumatology Referral M19.90 - Unspecified osteoarthritis, unspecified site, M47.816 - Spondylosis without myelopathy or radiculopathy, lumbar region Medications: New amitriptyline 25 mg PO BEDTIME 30 tabs 0RF 30 days Coding Level of Care Code Est Pt Level 4 (51511) Diagnoses Inflammatory arthritis M19.90 Facet arthritis of lumbar region M47.816 Recurrent major depressive disorder, in full remission F33.42 Active/Remission status: in full remission Anxiety, generalized F41.1 Chronic GERD K21.9 LFT elevation R79.89 Impaired fasting blood sugar R73.01 Headache syndrome G44.89 Difficulty sleeping G47.9
== END 2023-05-12 15:10 | disposition home or self-care (01) ==
PROVIDERS: PCP Internal Medicine; Visit Provider Internal Medicine
DX: M19.90 Unspecified osteoarthritis, unspecified site (principal); M47.816 Spondylosis without myelopathy or radiculopathy, lumbar region; F33.42 Major depressive disorder, recurrent, in full remission; F41.1 Generalized anxiety disorder; K21.9 Gastro-esophageal reflux disease without esophagitis; R79.89 Other specified abnormal findings of blood chemistry; R73.01 Impaired fasting glucose; G44.89 Other headache syndrome; G47.9 Sleep disorder, unspecified
CPT/HCPCS: 99214

== ENCOUNTER 2023-06-02 14:11 | Outpatient (REF) | payer OTHER, SELFPAY ==
--- NOTE | ~2023-06-02 | XR_ITS ---
EXAMINATION: XR HAND/WRIST, RIGHT XR HAND/WRIST, LEFT CLINICAL INFORMATION: Pain. COMPARISON: Right hand radiographs dated 10/30/2020. TECHNIQUE: PA, lateral, and oblique views of the each hand and wrist, together with a dedicated navicular views. FINDINGS: RIGHT HAND/WRIST: Bony alignment and mineralization are normal. There is a mild ulnar minus variance. There is minimal osteoarthritic change of the second and third distal interphalangeal joints. Again, slight narrowing is suspected of the fourth and fifth distal clinical joints. No fracture or dislocation is seen. There is minimal osteoarthritic change of the third metacarpophalangeal joint. The proximal and distal carpal rows are intact. No focal soft tissue swelling, gas or foreign body is seen. LEFT HAND/WRIST: The bones and soft tissues are normal. No fracture. Alignment is anatomic. Joint spaces are maintained. No erosions or soft tissue calcifications. XR/XR hand wrist RT IMPRESSION: 1. There is minimal osteoarthritic change of the right second through fourth distal interphalangeal joints and of the third metacarpophalangeal joint. No focal bone erosion is seen. 2. Unremarkable radiographs of the left hand and wrist.
--- NOTE | ~2023-06-02 | XR_ITS ---
EXAMINATION: XR HAND/WRIST, RIGHT XR HAND/WRIST, LEFT CLINICAL INFORMATION: Pain. COMPARISON: Right hand radiographs dated 10/30/2020. TECHNIQUE: PA, lateral, and oblique views of the each hand and wrist, together with a dedicated navicular views. FINDINGS: RIGHT HAND/WRIST: Bony alignment and mineralization are normal. There is a mild ulnar minus variance. There is minimal osteoarthritic change of the second and third distal interphalangeal joints. Again, slight narrowing is suspected of the fourth and fifth distal clinical joints. No fracture or dislocation is seen. There is minimal osteoarthritic change of the third metacarpophalangeal joint. The proximal and distal carpal rows are intact. No focal soft tissue swelling, gas or foreign body is seen. LEFT HAND/WRIST: The bones and soft tissues are normal. No fracture. Alignment is anatomic. Joint spaces are maintained. No erosions or soft tissue calcifications. XR/XR hand wrist LT IMPRESSION: 1. There is minimal osteoarthritic change of the right second through fourth distal interphalangeal joints and of the third metacarpophalangeal joint. No focal bone erosion is seen. 2. Unremarkable radiographs of the left hand and wrist.
[2023-06-02 15:31] LABS: MANUAL DIFF FLAG NO
[2023-06-02 17:08] LABS: Basophils Percent Auto 0.5 % (0-2); Eosinophils Absolute Auto 0.2 X10*3/uL (0.0-0.4); Eosinophils Percent Auto 2.8 % (0-4); Imm Gran Abs Auto 0.02 X10*3/uL (0.00-0.03); Imm Gran Pct Auto 0.3 % (0.0-0.4); Lymphocytes Absolute Auto 1.8 X10*3/uL (1.2-4.9); Lymphocytes Percent Auto 29.4 % (20-40); Mean Corpuscular HGB Conc 31.7 g/dl (31.0-35.0); Mean Corpuscular Hemoglobin 25.5 pg (27.0-33.0); Mean Corpuscular Volume 80.4 fL (80.0-98.0); Mean Platelet Volume 11.3 fL (9.4-12.3); Monocytes Absolute Auto 0.4 X10*3/uL (0.1-1.2); Monocytes Percent Auto 6.8 % (2-11); Neutrophils Absolute Auto 3.6 x10*3/uL (2.0-8.3); Neutrophils Percent Auto 60.2 % (45-73); Platelet Count 279 X10*3/uL (160-400); Red Cell Distribution Width 13.4 % (11.0-16.0)
[2023-06-02 17:29] LABS: Rheumatoid Factor < 13.0 IU/mL (<15.0)
[2023-06-02 17:38] LABS: Alanine Aminotransferase 51 U/L (0-31); Albumin Level 4.3 g/dL (3.5-5.0); Alkaline Phosphatase 79 U/L (39-117); Anion Gap 12 (12-20); Aspartate Amino Transferase 28 U/L (5-31); Bilirubin Total 0.2 mg/dL (0.0-1.0); Blood Urea Nitrogen 24 mg/dL (9-16); Calcium 9.5 mg/dL (8.4-10.2); Carbon Dioxide 28 mmol/L (22-29); Chloride 105 mmol/L (96-108); Estimated Glomerular Filt Rate > 60; Glucose Random 96 mg/dL (60-115); Potassium 4.1 mmol/L (3.3-5.1); Sodium 141 mmol/L (135-145)
[2023-06-02 17:50] LABS: Erythrocyte Sedimentation Rate 7 MM/HR (0-20)
[2023-06-02 17:54] LABS: Appearance Urine Cloudy; Color Urine Yellow; Glucose Urine UA Negative (Negative); Leukocyte Esterase Urine Moderate (2+) (Negative); Nitrite Urine Negative (Negative); Specific Gravity - Urine 1.025 (1.005-1.025); UMIC TRIGGER UA YES; Urine Blood Negative (Negative); Urine Ketones Negative (Negative); Urine Protein Negative (Neg-Trace)
[2023-06-02 18:18] LABS: Bacteria Urine 4+ (None Seen); Hyaline Casts Urine 0-2 /LPF (0-2); RBC Urine 0-2 /HPF (0-2); WBC Urine 0-5 /HPF (0-5)
[2023-06-02 18:58] LABS: Creatinine Urine 116.17 mg/dL; Total Protein Urine Random < 7 mg/dL (<12)
[2023-06-03 08:14] LABS: HBS Num1 1.18 mIU/mL (0-7.99); Hepatitis A Antibody IgM 0.24 Index (0-0.79); Hepatitis B Core Antibody Nonreactive (Nonreactive); Hepatitis B Surface Antigen Negative (Negative); ~HepC Num1 0.08 S/CO (0.00-0.79); ~Hepatitis A Antibody IgM Nonreactive (Nonreactive); ~Hepatitis B Surface Antibody NONREACTIVE (Nonreactive); ~Hepatitis C Antibody Nonreactive (Nonreactive)
[2023-06-03 15:13] LABS: Anti DNA DS Antibody 1 IU/mL; Antibody to SS-A Antigen <1.0 NEG AI (<1.0 NEG); Antibody to SS-B Antigen <1.0 NEG AI (<1.0 NEG); SM/Ribonucleoprotein Ab <1.0 NEG AI (<1.0 NEG); Smith Protein <1.0 NEG AI (<1.0 NEG)
[2023-06-04 09:28] LABS: Complement C3 48 mg/dL (83-193)
[2023-06-04 13:59] LABS: Cyclic Citrullinated Peptide <16 UNITS
[2023-06-04 21:38] LABS: TS Negative Control Passed; TS Panel A 0; TS Panel B 0; TS Positive Control Passed; TSpotTB Negative (Negative)
[2023-06-05 13:03] LABS: Anti Nuclear Antibody Screen NEGATIVE (NEGATIVE)
[2023-06-06 05:14] LABS: DNAds, Crithidia Antibody Negative (Negative)
== END 2023-06-02 14:12 | disposition home or self-care (01) ==
LOC: HO.LAB 14:11
PROVIDERS: PCP Internal Medicine; Visit Provider Student in an Organized Health Care Education/Training Program
DX: Z11.7 Encounter for testing for latent tuberculosis infection (principal); Z11.59 Encounter for screening for other viral diseases; M32.9 Systemic lupus erythematosus, unspecified; M25.50 Pain in unspecified joint
CPT/HCPCS: 36415; 73110; 73130; 80053; 81001; 82570; 84156; 85025; 85652; 86038; 86140; 86160; 86200; 86225; 86235; 86255; 86431; 86481; 86704; 86706; 86709; 86803; 87340; 99202

== ENCOUNTER 2023-06-02 14:11 | Outpatient (AMB) | payer OTHER, SELFPAY ==
--- NOTE | 2023-06-02 14:28 | A.OFFVIS_ITS ---
Intake Vital Signs 06/02/23 14:29 Height 5 ft 8 in Weight 179 lb 7.3 oz BMI 27.3 BP 112/66 Blood Pressure Location Rt brachial Position Sitting Pulse 78 Pulse Source Pulse Oximeter Pulse Oximetry (%) 96 Oxygen Delivery Method Room Air Intake Visit Reasons: Inflammatory Arthritis/cm Intake Note: New pt presents today for consult, internally referred by PCP Dr Kwon C/o pain in multiple joints Symptoms started approx 2 years ago. Master Data Analyst Required: Yes Master Data Analyst Language: [employer] Worker Name: Jen [email or web address] Information Interpreted: clinical only Accompanied by: Self / Same As Patient Allergies No Known Allergies [No Known Allergies*] Allergy (Verified 06/02/23 14:36) Medication List - Last Reconciled 06/02/23 by Lian Garcia MD cholecalciferol (vitamin D3) 25 mcg PO DAILY 90 days mometasone 0.1% 1 appl topical DAILY 30 days sertraline 25 mg PO DAILY 90 days valacyclovir (Valtrex) 500 mg PO BID HPI HPI Comments History of Present Illness Details This is a 57-year-old female who was referred by her PCP for elevation of diffuse pain. The condition started 6-7 months ago with patient having pain in her neck across her shoulders as well as her chest, lower back radiating into right lower extremity. She also has diffuse tingling and needle sensation in all 4 extremities. She has bilateral leg pain at night. She states that she gets intermittent swelling across her MCPs associated with morning stiffness lasting about 30 minutes improving with stretching, exercises as well as hot and cold water. She denies any skin rashes. She is unaware of any family history of an autoimmune rheumatic disease. Denies any history of DVT/PE. Patient had 3 pregnancies, no abortions or miscarriages. 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 Brother No problems noted. Brother No problems noted. Brother No problems noted. Brother No problems noted. Social History Household Members: Spouse Housing: House Alcohol intake: current Alcohol intake frequency: holidays/special occasions only Patient Tobacco Use Status: Never used Tobacco e-Cigarette/Vaping Use: Never Used Current occupational status: employed Current occupation: [employer] Sexual orientation: Straight/Heterosexual Gender identity: Female Cognitive needs: No Hearing needs: No Vision needs: No Female Reproductive History Menstrual Age of Menarche: 14 Total pregnancies: 3 Number of Living Children: 3 Ab induced: 0 Ab spontaneous: 0 Review of Systems Const Reports fatigue, Reports headache(s) and Reports weakness ENT Reports dry mouth, Reports headache(s) and Reports neck pain Musc Reports back pain, Reports myalgias, Reports arthralgias, Reports joint swelling, Reports neck pain, Reports numbness, Reports radiating pain into limb, Reports stiffness and Reports tingling Skin/Breast Reports alopecia Neuro Reports headache(s), Reports memory loss, Reports numbness, Reports tingling, Reports paresthesias and Reports weakness Psych Reports abnormal sleep pattern, Reports anxiety, Reports depression and Reports memory loss Endo Reports fatigue Physical Exam Vital Signs: Last Vital Signs Pulse 78 06/02/23 14:29 BP 112/66 06/02/23 14:29 Pulse Ox 96 06/02/23 14:29 Oxygen Delivery Method Room Air 06/02/23 14:29 BMI result Body Mass Index 27.3 Const General: cooperative, healthy appearing and comfortable Nutritional Appearance: overweight Orientation/consciousness: patient oriented x3 Limitations: no limitations HEENT Head: Yes normocephalic and Yes atraumatic Mouth: moist mucous membranes Resp Effort & Inspection: normal respiratory effort and able to speak in complete sentences Auscultation: clear to auscultation bilaterally Cardio Rate: regular rate Rhythm: regular rhythm Skin General skin exam: no rashes or lesions noted Neuro General: patient oriented x3 Extrem Other: Diffuse fibromyalgia tender points Mild puffiness of her MCPs bilaterally Normal range of motion of hands, elbows, shoulders without pain Straight leg raise test on the right Normal nailfold capillaroscopy Results Reviewed Results Reviewed: 09/17/2022 EXAMINATION: MR LUMBAR SPINE WITHOUT CONTRAST CLINICAL INFORMATION: Lumbar radiculopathy. COMPARISON: Lumbar spine radiographs 09/02/2022. TECHNIQUE: MRI of the lumbar spine was obtained using routine sequences without contrast. FINDINGS: Alignment is normal. Vertebral body heights are preserved. No acute bone marrow signal changes. There is disc desiccation at multiple levels without substantial loss of intervertebral disc height. The tip of the conus medullaris is located at L1-L2. No mass effect on the conus. Visualized distal cord signal intensity is normal. At L1-L2 the annular contour is normal. No canal stenosis. No mass effect on the traversing or foraminal nerve roots. At L2-L3 the annular contour is normal. No canal stenosis. No mass effect on the traversing or foraminal nerve roots. At L3-L4 there is a shallow left far lateral protrusion superimposed upon a slightly bulging disc. No canal stenosis. No mass effect on the traversing or foraminal nerve roots. At L4-L5 there is a slightly bulging disc. Bilateral facet degenerative change. No canal stenosis. No mass effect on the traversing or foraminal nerve roots. At L5-S1 there is a right foraminal annular fissure associated with a slightly bulging disc. Bilateral facet degenerative change. No canal stenosis. No mass effect on the traversing or foraminal nerve roots. Limited visualization of the retroperitoneal anatomy reveals no abnormal finding. Psoas and paraspinal muscle groups are symmetric. MR/MR lumbar spine wo con IMPRESSION: There is disc degeneration at multiple levels within the mid to lower lumbar spine. No canal stenosis. No mass effect on the traversing or foraminal nerve roots. Assessment & Plan Assessment & Plan (1) Polyarthralgia: Code(s): M25.50 - Pain in unspecified joint Plan: This is a 57-year-old female who presents for evaluation of diffuse pain. Upon evaluation there is a component of fibromyalgia as well as degenerative arthritis of her L-spine. However will order comprehensive serology to screen for underlying autoimmune rheumatic disease. Check bilateral hand x-rays Follow-up in 5-6 weeks Plan I spent 47 minutes reviewing patient's chart, evaluating patient, ordering diagnostic workup, counseling patient and documenting in the chart Orders: Orders KYLAH Reflex Titer and Pattern Today M32.9 - Systemic lupus erythematosus, unspecified Anti Extractable Nuclear Ag Today M32.9 - Systemic lupus erythematosus, unspecified Complement C3 Today M32.9 - Systemic lupus erythematosus, unspecified Complement C4 Today M32.9 - Systemic lupus erythematosus, unspecified C Reactive Protein Today M32.9 - Systemic lupus erythematosus, unspecified Erythrocyte Sedimentation Rate Today M32.9 - Systemic lupus erythematosus, unspecified Protein Creatinine Ratio, Ur Today M32.9 - Systemic lupus erythematosus, unspecified Hepatitis A,B,C Profile Today Z11.59 - Encounter for screening for other viral diseases T Spot TB Today Z11.7 - Encounter for testing for latent tuberculosis infection Rheumatoid Factor Today M25.50 - Pain in unspecified joint Cyclic Citrullinated Peptide Today M25.50 - Pain in unspecified joint XR hand wrist LT Today M25.50 - Pain in unspecified joint XR hand wrist RT Today M25.50 - Pain in unspecified joint Anti DNA DS Antibody Today M32.9 - Systemic lupus erythematosus, unspecified DNA Double Stranded-Crithidia Today M32.9 - Systemic lupus erythematosus, unspecified Sjogren's Antibodies Today M32.9 - Systemic lupus erythematosus, unspecified UA w Microscopic Today M32.9 - Systemic lupus erythematosus, unspecified Complete Blood Count Auto Diff Today M32.9 - Systemic lupus erythematosus, un specified Comprehensive Met. Panel Today M32.9 - Systemic lupus erythematosus, unspecified Coding Level of Care Code New Pt Level 4 (24104) Diagnoses Polyarthralgia M25.50
[2023-06-02 14:29] VITALS: BP 112/66; PULSE 78; O2SAT 96; BMI 27.3
== END 2023-06-02 15:03 | disposition home or self-care (01) ==
PROVIDERS: PCP Internal Medicine; Visit Provider Student in an Organized Health Care Education/Training Program
DX: M25.50 Pain in unspecified joint (principal)
CPT/HCPCS: 99204

== ENCOUNTER 2023-06-04 08:33 | Outpatient (AMB) | payer OTHER, SELFPAY ==
--- NOTE | 2023-06-04 10:22 | MHC.PC.OV ---
Intake Visit Reasons: 3WK F/U Allergies No Known Allergies [No Known Allergies*] Allergy (Verified 06/04/23 10:22) Medication List - Last Reconciled 06/04/23 by Carl Kwon MD cholecalciferol (vitamin D3) 25 mcg PO DAILY 90 days mometasone 0.1% 1 appl topical DAILY 30 days sertraline 25 mg PO DAILY 90 days valacyclovir (Valtrex) 500 mg PO BID Tobacco use date assessed: 06/04/23 Dental Screening Dental Screen Date: 06/04/23 Did you have a dental visit in the last 12 months?: Yes Did you have a dental problem in the last 6 months where you did not have access to dental care?: No Was dental information given to patient?: Patient has dentist HPI 3WK F/U HPI Details Patient is a 57-year-old female this is a telemedicine follow-up appointment Patient complained of whole body pain unable to sleep at night I prescribed amitriptyline 25 mg for the patient which she never took. She has started taking melatonin which is helping her to sleep at night She has been evaluated by Rheumatology [facility] on of this month Blood work and x-rays were ordered There is a tentative diagnosis of fibromyalgia and DJD joints Patient has a follow-up appointment in June [facility] Medical History Well woman exam Anxiety, generalized Depression, major, recurrent Herpes labialis Atopic dermatitis Hx of rosacea Hx of cold sores Surgical History Hx of cholecystectomy Tubal ligation status Hx of appendectomy Family History Mother Family hx of hypertension Family history of Alzheimer's disease Father No problems noted. Brother No problems noted. Brother No problems noted. Brother No problems noted. Brother No problems noted. Social History Household Members: Spouse Housing: House Alcohol intake: current Alcohol intake frequency: holidays/special occasions only Patient Tobacco Use Status: Never used Tobacco e-Cigarette/Vaping Use: Never Used Current occupational status: employed Current occupation: [employer] Sexual orientation: Straight/Heterosexual Gender identity: Female Cognitive needs: No Hearing needs: No Vision needs: No Female Reproductive History Menstrual Age of Menarche: 14 Questionnaire Thrive Questionnaire Date Thrive assessed: 05/07/22 AUDIT C Alcohol Use Questionnaire (AUDIT-C) 1. How often do you have a drink containing alcohol?: Never 3. How often do you have six or more drinks on one occasion?: Never Total Score: 0 Score Reviewed/Action Taken: Yes KAMLESH-7 AMB Questionnaire KAMLESH-7 Date KAMLESH - 7 assessed: 05/07/22 Source: Developed by Drs. Crow Burks, Kavita Pace, Chino Corrales and colleagues, with an educational yousif from [employer]. Review of Systems Const Denies chills and Denies fever(s) ENT Denies epistaxis and Denies nasal discharge Card Denies chest pain Resp Denies chest congestion, Denies cough and Denies hemoptysis GI Denies diarrhea and Denies nausea Skin/Breast Denies rash Neuro Reports no additional complaints Psych Reports no additional complaints Endo Reports no additional complaints Physical exam (Primary Care) Tobacco/Smoking Status: Tobacco use Status Tobacco use date assessed 06/04/23 06/04/23 10:23 Patient Tobacco Use Status Never used Tobacco 06/04/23 10:23 e-Cigarette/Vaping Use Never Used 06/04/23 10:23 Thrive Assessment: Date of Thrive Assessment Date Thrive assessed 05/07/22 06/04/23 10:23 Telehealth Telehealth Location of provider rendering services: practice address Location of patient: address on file Patient Identification confirmed using: Name, : Yes Telehealth method: video (attempted) Patient verbally consented to treatment: Yes Patient verbally consented to billing insurance company: Yes Patient informed of any privacy concerns related to visit: Yes Minutes spent on Phone/Video with Pt.: 13 Assessment and Plan Assessment & Plan (1) Facet arthritis of lumbar region: Code(s): M47.816 - Spondylosis without myelopathy or radiculopathy, lumbar region (2) Fibromyalgia: Code(s): M79.7 - Fibromyalgia (3) Polyarthralgia: Code(s): M25.50 - Pain in unspecified joint (4) Difficulty sleeping: Code(s): G47.9 - Sleep disorder, unspecified Plan Patient is a 57-year-old female this is a telemedicine follow-up appointment Patient complained of whole body pain unable to sleep at night I prescribed amitriptyline 25 mg for the patient which she never took. She has started taking melatonin which is helping her to sleep at night She has been evaluated by Rheumatology [facility] on of this month Blood work and x-rays were ordered There is a tentative diagnosis of fibromyalgia and DJD joints Patient has a follow-up appointment in June Coding Level of Care Code Tele Est Pt Level 3 (67239) Diagnoses Facet arthritis of lumbar region M47.816 Fibromyalgia M79.7 Polyarthralgia M25.50 Difficulty sleeping G47.9
== END 2023-06-04 11:56 | disposition home or self-care (01) ==
PROVIDERS: PCP Internal Medicine; Visit Provider Internal Medicine
DX: M47.816 Spondylosis without myelopathy or radiculopathy, lumbar region (principal); M79.7 Fibromyalgia; M25.50 Pain in unspecified joint; G47.9 Sleep disorder, unspecified
CPT/HCPCS: 99213

== ENCOUNTER 2023-06-09 10:02 | Outpatient (AMB) | payer OTHER, SELFPAY ==
--- NOTE | 2023-06-09 10:05 | AM.OFFWIN_ITS ---
Intake Vital Signs 3 06/09/23 10:06 Height 5 ft 8 in Weight 177 lb BMI 26.9 BP 112/70 Blood Pressure Location Lt brachial Position Standing Pulse 118 H Pulse Source Pulse Oximeter Temp 97.8 F Temp Source Temporal Artery Scan Pulse Oximetry (%) 99 Oxygen Delivery Method Room Air Intake Visit Reasons: EP Lower back pain Intake Note: pt is here today for lower back pain started 1 week ago Patient Tobacco Use Status: Never used Tobacco Allergies naproxen [From Aleve] Allergy (Mild, Verified 06/09/23 10:22) Unknown Medication List - Last Reconciled 06/09/23 by Carl Kwon MD cholecalciferol (vitamin D3) 25 mcg PO DAILY 90 days mometasone 0.1% 1 appl topical DAILY 30 days sertraline 25 mg PO DAILY 90 days valacyclovir (Valtrex) 500 mg PO BID Do you need a note to return to daycare/school/sports/work: No HPI EP Lower back pain 2 HPI0 Details Patient is a 57 year female came in today to evaluated for lower back pain Patient has been having this pain off and. Sometimes it radiates to right hip. She had MRI of lower back August of last year which showed DJD. Currently she is taking ibuprofen which is helping somewhat Patient was notified to stop ibuprofen, I am treating her with diclofenac 75 mg b.i.d. with food And prednisone 20 mg once a day for 5 days with food She is also currently seeing Rheumatology and workup is in progress There is no bowel or bladder issue On review system she has no fever no chills, no chest pain no shortness a breath no rashes no other joint pains No headache PFSH Medical History Well woman exam Anxiety, generalized Depression, major, recurrent Herpes labialis Atopic dermatitis Hx of rosacea Hx of cold sores Surgical History Hx of cholecystectomy Tubal ligation status Hx of appendectomy Family History Mother Family hx of hypertension Family history of Alzheimer's disease Father No problems noted. Brother No problems noted. Brother No problems noted. Brother No problems noted. Brother No problems noted. Social History Household Members: Spouse Housing: House Alcohol intake: current Alcohol intake frequency: holidays/special occasions only Patient Tobacco Use Status: Never used Tobacco e-Cigarette/Vaping Use: Never Used Current occupational status: employed Current occupation: [employer] Sexual orientation: Straight/Heterosexual Gender identity: Female Cognitive needs: No Hearing needs: No Vision needs: No Female Reproductive History Menstrual Age of Menarche: 14 Review of Systems Const All systems reviewed & are unremarkable except as noted in HPI and below Physical Exam Vital Signs: Last Vital Signs Temp 97.8 F 06/09/23 10:06 Pulse 118 H 06/09/23 10:06 BP 112/70 06/09/23 10:06 Pulse Ox 99 06/09/23 10:06 Oxygen Delivery Method Room Air 06/09/23 10:06 BMI result Body Mass Index 26.9 Const General: no acute distress Orientation/consciousness: patient oriented x3 Eyes General: appearance normal, both eyes and all related structures Resp Effort & Inspection: normal respiratory effort and able to speak in complete sentences Auscultation: clear to auscultation bilaterally Back/Spine/Pelvis Back/spine/pelvis image: 2 1. Lower back pain mostly on the right side of, no pain with spine percussion Neuro General: patient oriented x3 Psych Mental Status: mental status grossly normal Results AMB Urinalysis, Automated 2 UA Leukoctes 15 Janie/uL Last Edit by Effie Mancuso MA on 06/09/23 10:27 UA Nitrite Negative Last Edit by Effie Mancuso MA on 06/09/23 10:27 UA Urobilinogen 0.2 mg/dL Last Edit by Effie Mancuso MA on 06/09/23 10:27 UA Protein 15 mg/dL Last Edit by Effie Mancuso MA on 06/09/23 10:27 UA pH 5.5 Last Edit by Effie Mancuso MA on 06/09/23 10:27 UA Blood 0 Renan/uL Last Edit by Effie Mancuso MA on 06/09/23 10:27 UA Specific [place] 1.030 Last Edit by Effie Mancuso MA on 06/09/23 10:27 UA Ketone Negative Last Edit by Effie Mancuso MA on 06/09/23 10:27 UA Bilirubin 1 mg/dL Last Edit by Effie Mancuso MA on 06/09/23 10:27 UA Glucose 0 mg/dL Last Edit by Effie Mancuso MA on 06/09/23 10:27 Results Reviewed Results Reviewed: Laboratory Last Values Urine pH (Auto) 5.5 06/09/23 10:25 Specific [place] (Auto) 1.030 06/09/23 10:25 Urine Protein (Auto) 15 mg/dL 06/09/23 10:25 Glucose (UA)(Auto) 0 mg/dL 06/09/23 10:25 Urine Ketones (Auto) Negative 06/09/23 10:25 Urine Blood (Auto) 0 Renan/uL 06/09/23 10:25 Urine Nitrite (Auto) Negative 06/09/23 10:25 Urine Bilirubin (Auto) 1 mg/dL 06/09/23 10:25 Urine Urobilinogen (Auto) 0.2 mg/dL 06/09/23 10:25 Leukocyte Esterase (Auto) 15 Janie/uL 06/09/23 10:25 Assessment & Plan Assessment & Plan (1) Lumbar radiculopathy: Code(s): M54.16 - Radiculopathy, lumbar region (2) Facet arthritis of lumbar region: Code(s): M47.816 - Spondylosis without myelopathy or radiculopathy, lumbar region (3) Lumbar spondylosis: Code(s): M47.816 - Spondylosis without myelopathy or radiculopathy, lumbar region Plan Patient is a 57 year female came in today to evaluated for lower back pain Patient has been having this pain off and. Sometimes it radiates to right hip. She had MRI of lower back August of last year which showed DJD. Currently she is taking ibuprofen which is helping somewhat Patient was notified to stop ibuprofen, I am treating her with diclofenac 75 mg b.i.d. with food And prednisone 20 mg once a day for 5 days with food She is also currently seeing Rheumatology and workup is in progress There is no bowel or bladder issue On review system she has no fever no chills, no chest pain no shortness a breath no rashes no other joint pains No headache Medications: New 2 diclofenac sodium 75 mg PO BID 20 tabs 0RF pain 10 days prednisone 20 mg PO DAILY 5 tabs 0RF 5 days Coding Level of Care Code Est Pt Level 3 (31847) Diagnoses Lumbar radiculopathy M54.16 Facet arthritis of lumbar region M47.816 Lumbar spondylosis M47.816
[2023-06-09 10:06] VITALS: BP 112/70; PULSE 118; TEMP 36.6; O2SAT 99; BMI 26.9
== END 2023-06-09 10:37 | disposition home or self-care (01) ==
PROVIDERS: PCP Internal Medicine; Visit Provider Internal Medicine
DX: M54.16 Radiculopathy, lumbar region (principal); M47.816 Spondylosis without myelopathy or radiculopathy, lumbar region
CPT/HCPCS: 99213

== ENCOUNTER 2023-06-18 13:46 | Outpatient (AMB) | payer OTHER, SELFPAY ==
--- NOTE | 2023-06-18 13:52 | MHC.OFFVIS ---
Vital Signs 06/18/23 14:00 Height 5 ft 8 in Weight 173 lb BMI 26.3 BP 118/62 Blood Pressure Location Rt brachial Position Sitting Pulse 68 Pulse Source Pulse Oximeter Pulse Oximetry (%) 97 Oxygen Delivery Method Room Air Intake Visit Reasons: joint pain Intake Note: Patient presents today for worsening joint pain. Reports seeing PCP due to pain. Prednisone and Diclofenac Sodium presribed. Reports taking Diclofenac for 2 days with no relief. Does not like taking Predisone because she does not like the way it makes her feel. Took Ibuprofen 800 which helped. Seam Sewer Required: Yes Seam Sewer Language: Pathology Laboratory Aide Name: Bharat-refusal signed Accompanied by: Spouse Allergies naproxen [From Aleve] Allergy (Mild, Verified 06/18/23 14:03) Unknown Medication List - Last Reconciled 06/18/23 by Lian Garcia MD cholecalciferol (vitamin D3) 25 mcg PO DAILY 90 days diclofenac sodium 75 mg PO BID 10 days ibuprofen 800 mg PO ONCE PRN mometasone 0.1% 1 appl topical DAILY 30 days prednisone 20 mg PO DAILY 5 days sertraline 25 mg PO DAILY 90 days valacyclovir (Valtrex) 500 mg PO BID HPI Comments Details: Patient returns for follow-up after completion of her diagnostic workup. She presents today with her . She states that Dr. Kwon recently prescribed diclofenac sodium and prednisone. She did not feel that prednisone helped and it caused GI upset. Continues to have diffuse pain Initial history: This is a 57-year-old female who was referred by her PCP for elevation of diffuse pain. The condition started 6-7 months ago with patient having pain in her neck across her shoulders as well as her chest, lower back radiating into right lower extremity. She also has diffuse tingling and needle sensation in all 4 extremities. She has bilateral leg pain at night. She states that she gets intermittent swelling across her MCPs associated with morning stiffness lasting about 30 minutes improving with stretching, exercises as well as hot and cold water. She denies any skin rashes. She is unaware of any family history of an autoimmune rheumatic disease. Denies any history of DVT/PE. Patient had 3 pregnancies, no abortions or miscarriages. Patient has known degenerative disease of her L-spine and received injections by Pain Management in [place] in the past [facility] Medical History Well woman exam Anxiety, generalized Depression, major, recurrent Herpes labialis Atopic dermatitis Hx of rosacea Hx of cold sores Surgical History Hx of cholecystectomy Tubal ligation status Hx of appendectomy Family History Mother Family hx of hypertension Family history of Alzheimer's disease Father No problems noted. Brother No problems noted. Brother No problems noted. Brother No problems noted. Brother No problems noted. Social History Household Members: Spouse Housing: House Alcohol intake: current Alcohol intake frequency: holidays/special occasions only Patient Tobacco Use Status: Never used Tobacco e-Cigarette/Vaping Use: Never Used Current occupational status: employed Current occupation: [employer] Sexual orientation: Straight/Heterosexual Gender identity: Female Cognitive needs: No Hearing needs: No Vision needs: No Female Reproductive History Menstrual Age of Menarche: 14 Review of Systems Const Reports fatigue and Reports weakness Musc Reports back pain, Reports myalgias, Reports arthralgias, Reports joint swelling, Reports numbness, Reports radiating pain into limb, Reports stiffness and Reports tingling Neuro Reports memory loss, Reports numbness, Reports tingling, Reports paresthesias and Reports weakness Psych Reports abnormal sleep pattern, Reports anxiety, Reports depression and Reports memory loss Endo Reports fatigue Physical Exam Vital Signs: Last Vital Signs Pulse 68 06/18/23 14:00 BP 118/62 06/18/23 14:00 Pulse Ox 97 06/18/23 14:00 Oxygen Delivery Method Room Air 06/18/23 14:00 BMI result Body Mass Index 26.3 Const General: cooperative, healthy appearing and comfortable Nutritional Appearance: overweight Orientation/consciousness: patient oriented x3 Limitations: no limitations HEENT Head: Yes normocephalic and Yes atraumatic Mouth: moist mucous membranes Resp Effort & Inspection: normal respiratory effort and able to speak in complete sentences Neuro General: patient oriented x3 Extrem Other: Diffuse fibromyalgia tender points Minimal osteoarthritic changes of both hands with no active synovitis Results Reviewed Results Reviewed: 09/17/2022 EXAMINATION: MR LUMBAR SPINE WITHOUT CONTRAST CLINICAL INFORMATION: Lumbar radiculopathy. COMPARISON: Lumbar spine radiographs 09/02/2022. TECHNIQUE: MRI of the lumbar spine was obtained using routine sequences without contrast. FINDINGS: Alignment is normal. Vertebral body heights are preserved. No acute bone marrow signal changes. There is disc desiccation at multiple levels without substantial loss of intervertebral disc height. The tip of the conus medullaris is located at L1-L2. No mass effect on the conus. Visualized distal cord signal intensity is normal. At L1-L2 the annular contour is normal. No canal stenosis. No mass effect on the traversing or foraminal nerve roots. At L2-L3 the annular contour is normal. No canal stenosis. No mass effect on the traversing or foraminal nerve roots. At L3-L4 there is a shallow left far lateral protrusion superimposed upon a slightly bulging disc. No canal stenosis. No mass effect on the traversing or foraminal nerve roots. At L4-L5 there is a slightly bulging disc. Bilateral facet degenerative change. No canal stenosis. No mass effect on the traversing or foraminal nerve roots. At L5-S1 there is a right foraminal annular fissure associated with a slightly bulging disc. Bilateral facet degenerative change. No canal stenosis. No mass effect on the traversing or foraminal nerve roots. Limited visualization of the retroperitoneal anatomy reveals no abnormal finding. Psoas and paraspinal muscle groups are symmetric. MR/MR lumbar spine wo con IMPRESSION: There is disc degeneration at multiple levels within the mid to lower lumbar spine. No canal stenosis. No mass effect on the traversing or foraminal nerve roots. Assessment & Plan Assessment & Plan (1) Polyarthralgia: Code(s): M25.50 - Pain in unspecified joint Category: Medical Plan: This is a 57-year-old female who presents for evaluation of diffuse pain. I do not see any evidence of an autoimmune rheumatic disease. Clinical picture rather consistent with fibromyalgia and degenerative arthritis. Comprehensive serology is unremarkable. I had a long conversation with patient about her condition today. Discussed management of fibromyalgia with patient. Is a noninflammatory, non-autoimmune central afferent processing disorder leading to a diffuse pain syndrome. I suggested that patient try to address her underlying psychiatric issues, anxiety/depression. I suggested evaluation by a therapist and/or a psychiatrist. Try to follow sleep hygiene practices. Consider a referral for a sleep study by her PCP. Discuss CBT for sleep with psychotherapist. Patient would benefit from increased physical activity, either through formal physical therapy or by joining a gym. Advised patient that she should start activity slowly and increase as tolerated. Consider low-impact exercises such as walking, swimming, aqua therapy stretching, yoga. Follow-up with PCP Plan I spent 25 minutes reviewing patient's chart, evaluating patient, counseling patient and documenting in the chart Coding Level of Care Code Est Pt Level 4 (47913) Diagnoses Polyarthralgia M25.50
[2023-06-18 14:00] VITALS: BP 118/62; PULSE 68; O2SAT 97; BMI 26.3
== END 2023-06-18 14:30 | disposition home or self-care (01) ==
LOC: HO.RHE 13:46
PROVIDERS: PCP Internal Medicine; Visit Provider Student in an Organized Health Care Education/Training Program
DX: M25.50 Pain in unspecified joint (principal)
CPT/HCPCS: 99214

== ENCOUNTER → 2023-06-18 13:46 | Outpatient (BNVA) | payer OTHER, SELFPAY | PROVIDERS: PCP Internal Medicine; Visit Provider Student in an Organized Health Care Education/Training Program | DX: M25.50 Pain in unspecified joint (principal) | CPT/HCPCS: 99212 ==

== ENCOUNTER 2023-07-24 12:15 | Outpatient (AMB) | payer OTHER, SELFPAY ==
[2023-07-24 12:17] VITALS: BP 120/82; PULSE 70; O2SAT 98; BMI 27.4
--- NOTE | 2023-07-24 12:17 | A.OFFPC_ITS ---
Vital Signs 07/24/23 12:17 Height 5 ft 8 in Weight 180 lb BMI 27.4 BP 120/82 Blood Pressure Location Rt brachial Position Sitting Pulse 70 Pulse Source Pulse Oximeter Pulse Oximetry (%) 98 Oxygen Delivery Method Room Air Intake Visit Reasons: Fibromyalgia Allergies naproxen [From Aleve] Allergy (Mild, Verified 07/24/23 12:17) Unknown Medication List - Last Reconciled 07/24/23 by Carl Kwon MD amoxicillin 500 mg PO TID cholecalciferol (vitamin D3) 25 mcg PO DAILY 90 days diclofenac sodium 75 mg PO BID 10 days gabapentin 100 mg PO TID mometasone 0.1% 1 appl topical DAILY 30 days sertraline 25 mg PO DAILY 90 days valacyclovir (Valtrex) 500 mg PO BID Tobacco use date assessed: 07/24/23 Dental Screening Dental Screen Date: 07/24/23 Did you have a dental visit in the last 12 months?: Yes Did you have a dental problem in the last 6 months where you did not have access to dental care?: No Was dental information given to patient?: Patient has dentist HPI Fibromyalgia HPI Details Patient is a 57-year-old female came in today to talk about her depression and anxiety Patient tells me that she has a long history of panic disorder and depression And was seeing psychiatrist in [place] before she moved here She has been seeing senior business broker was diagnosed with fibromyalgia She was given gabapentin 100 mg t.i.d. 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 Patient have a follow-up appointment in August. [facility] Medical History Well woman exam Anxiety, generalized Depression, major, recurrent Herpes labialis Atopic dermatitis Hx of rosacea Hx of cold sores Surgical History Hx of cholecystectomy Tubal ligation status Hx of appendectomy Family History Mother Family hx of hypertension Family history of Alzheimer's disease Father No problems noted. Brother No problems noted. Brother No problems noted. Brother No problems noted. Brother No problems noted. Social History Household Members: Spouse Housing: House Alcohol intake: current Alcohol intake frequency: holidays/special occasions only Patient Tobacco Use Status: Never used Tobacco e-Cigarette/Vaping Use: Never Used service: No Current occupational status: employed Current occupation: [employer] Sexual orientation: Straight/Heterosexual Gender identity: Female Cognitive needs: No Hearing needs: No Vision needs: No Female Reproductive History Menstrual Age of Menarche: 14 Questionnaire Thrive Questionnaire Date Thrive assessed: 05/07/22 AUDIT C Alcohol Use Questionnaire (AUDIT-C) 1. How often do you have a drink containing alcohol?: Never 3. How often do you have six or more drinks on one occasion?: Never Total Score: 0 Score Reviewed/Action Taken: Yes KAMLESH-7 AMB Questionnaire KAMLESH-7 Date KAMLESH - 7 assessed: 05/07/22 Source: Developed by Drs. Crow Burks, Kavita Pace, Chino Corrales and colleagues, with an educational yousif from [employer]. Review of Systems Const Denies chills and Denies fever(s) ENT Denies epistaxis and Denies nasal discharge Card Denies chest pain Resp Denies chest congestion, Denies cough and Denies hemoptysis GI Denies diarrhea and Denies nausea Skin/Breast Denies rash Neuro Reports no additional complaints Psych Reports no additional complaints Endo Reports no additional complaints Physical exam (Primary Care) Vital Signs: Last Vital Signs Pulse 70 07/24/23 12:17 BP 120/82 07/24/23 12:17 Pulse Ox 98 07/24/23 12:17 Oxygen Delivery Method Room Air 07/24/23 12:17 BMI result Body Mass Index 27.4 Tobacco/Smoking Status: Tobacco use Status Tobacco use date assessed 07/24/23 07/24/23 12:20 Patient Tobacco Use Status Never used Tobacco 07/24/23 12:18 e-Cigarette/Vaping Use Never Used 07/24/23 12:18 Thrive Assessment: Date of Thrive Assessment Date Thrive assessed 05/07/22 07/24/23 12:18 Const General: cooperative, comfortable and no acute distress Orientation/consciousness: patient oriented x3 HENMT Head: Yes normocephalic Eyes General: appearance normal, both eyes and all related structures Neck Neck: Yes supple Resp Effort & Inspection: normal respiratory effort, no cough and no stridor Cardio Rhythm: regular rhythm Heart sounds: S1 normal heart sound present and S2 normal heart sound present Skin General skin exam: turgor normal Neuro General: patient oriented x3, tone normal and moves all extremities Extrem Right lower extremity: no edema Left lower extremity: no edema Assessment and Plan Assessment & Plan (1) Paresthesias in right hand: Code(s): R20.2 - Paresthesia of skin (2) Depression, major, recurrent: Code(s): F33.9 - Major depressive disorder, recurrent, unspecified Qualifiers: Active/Remission status: in full remission Qualified Code(s): F33.42 - Major depressive disorder, recurrent, in full remission (3) Difficulty sleeping: Code(s): G47.9 - Sleep disorder, unspecified (4) Polyarthralgia: Code(s): M25.50 - Pain in unspecified joint (5) Fibromyalgia: Code(s): M79.7 - Fibromyalgia (6) Panic anxiety syndrome: Code(s): F41.0 - Panic disorder [episodic paroxysmal anxiety] Plan Patient is a 57-year-old female came in today to talk about her depression and anxiety Patient tells me that she has a long history of panic disorder and depression And was seeing psychiatrist in [place] before she moved here She has been seeing senior business broker was diagnosed with fibromyalgia She was given gabapentin 100 mg t.i.d. 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 Patient have a follow-up appointment in August. Orders: Orders NE electromyogram (EMG) Today R20.2 - Paresthesia of skin NE nerve conduction velocity Today R20.2 - Paresthesia of skin Referrals Psychiatry Referral F33.42 - Major depressive disorder, recurrent, in full remission, F41.0 - Panic disorder [episodic paroxysmal anxiety], G47.9 - Sleep disorder, unspecified Medications: New gabapentin 300 mg PO TID 90 caps 1RF 30 days Changed From sertraline 25 mg PO DAILY 90 days 90 tabs 1RF To sertraline 50 mg PO DAILY 90 tabs 0RF 90 days Coding Level of Care Code Est Pt Level 4 (76254) Diagnoses Paresthesias in right hand R20.2 Recurrent major depressive disorder, in full remission F33.42 Active/Remission status: in full remission Difficulty sleeping G47.9 Polyarthralgia M25.50 Fibromyalgia M79.7 Panic anxiety syndrome F41.0
== END 2023-07-24 12:50 | disposition home or self-care (01) ==
PROVIDERS: PCP Internal Medicine; Visit Provider Internal Medicine
DX: R20.2 Paresthesia of skin (principal); F33.42 Major depressive disorder, recurrent, in full remission; G47.9 Sleep disorder, unspecified; M25.50 Pain in unspecified joint; M79.7 Fibromyalgia; F41.0 Panic disorder [episodic paroxysmal anxiety]
CPT/HCPCS: 99214

== ENCOUNTER 2023-07-31 09:42 | Outpatient (REF) | payer OTHER, SELFPAY ==
--- NOTE | 2023-07-31 09:46 | EMG_ITS ---
Chief complaint: Right hand numbness and pain Reason for referral: Evaluate for Carpal Tunnel Syndrome Referred by: Dr. Carl Kwon Procedure done: Right upper extremity NCS/EMG Precautions and/or limitations: None The limb temperature was monitored continuously and remained between 32-36 degrees C during the performance of the NCS. Nerve Conduction Studies Anti Sensory Summary Table ?Stim Site NR Onset (ms) Norm Onset (ms) Peak (ms) Norm Peak (ms) O-P Amp (?V) Norm O-P Amp Site1 Site2 Delta-0 (ms) Dist (cm) Daniel (m/s) Norm Daniel (m/s) Right Median Anti Sensory (2nd Digit) Wrist ? 2.7 3.3 <3.6 31.7 >10 Wrist 2nd Digit 2.7 14.0 52 Right Ulnar Anti Sensory (5th Digit) Wrist ? 2.2 2.9 <3.7 15.8 >15.0 Wrist 5th Digit 2.2 14.0 64 Motor Summary Table ?Stim Site NR Onset (ms) Norm Onset (ms) O-P Amp (mV) Norm O-P Amp iAmp (mV) Amp (1st) (%) Site1 Site2 Delta-0 (ms) Dist (cm) Danile (m/s) Norm Daniel (m/s) Right Median Motor (Abd Poll Brev) Wrist ? 3.5 <3.9 9.9 >4.5 12.3 100.0 Elbow Wrist 4.0 20.5 51 >45 Elbow ? 7.5 9.5 11.8 96.0 Right Ulnar Motor (Abd Dig Minimi) Wrist ? 2.6 <3.0 10.6 >5 12.4 100.0 B Elbow Wrist 3.0 19.0 63 >45 B Elbow ? 5.6 9.9 11.8 93.4 A Elbow B Elbow 1.5 10.0 67 >45 A Elbow ? 7.1 9.5 11.4 89.6 Comparison Summary Table ?Stim Site NR Peak (ms) Norm Peak (ms) P-T Amp (?V) Site1 Site2 Delta-P (ms) Norm Delta (ms) Right Median/Radial Dig I Comparison (Digit 1 - 10cm) Median ? 2.8 <2.9 93.9 Median Radial 0.4 Radial ? 2.4 <2.8 21.5 EMG ?Side Muscle Nerve Root Ins Act Fibs Psw Amp Dur Poly Recrt Int Pat Comment Right 1stDorInt Ulnar C8-T1 Nml Nml Nml Nml Nml 0 Nml Complete Right FlexCarRad Median C6-7 Nml Nml Nml Nml Nml 0 Nml Complete Right Biceps Musculocut C5-6 Nml Nml Nml Nml Nml 0 Nml Complete Right Triceps Radial C6-7-8 Nml Nml Nml Nml Nml 0 Nml Complete Right Deltoid Axillary C5-6 Nml Nml Nml Nml Nml 0 Nml Complete FINDINGS: All motor and sensory nerves tested showed normal latencies, amplitudes and conduction velocities. Concentric needle EMG was performed in selected muscles of the right upper extremity. Study did not reveal signs of electric abnormalities as shown in the table below. IMPRESSION: 1. This is a normal study. 2. There is no electrodiagnostic evidence for median neuropathy, ulnar neuropathy, brachial plexopathy, or cervical radiculopathy. Thank you for your kind referral. Daphney Lopez MD, ISABELLA Board Certified, [place] [employer] and [employer] (ABPMR) Board Certified, [place] Board [employer] Electrodiagnostic [employer] (ABEM) CODIN [id number] MTDD
== END 2023-07-31 09:43 | disposition home or self-care (01) ==
LOC: HO.NEURO 09:42
PROVIDERS: PCP Internal Medicine; Visit Provider Internal Medicine
DX: R20.2 Paresthesia of skin (principal)
CPT/HCPCS: 95886; 95909

== ENCOUNTER → 2023-07-31 09:46 | Outpatient (BNV) | payer OTHER, SELFPAY | PROVIDERS: PCP Internal Medicine; Visit Provider Physical Medicine & Rehabilitation | DX: R20.2 Paresthesia of skin (principal); M79.641 Pain in right hand | CPT/HCPCS: 95886; 95909 ==

== ENCOUNTER 2023-08-11 10:00 | Outpatient (AMB) | payer OTHER, SELFPAY ==
--- NOTE | 2023-08-11 10:02 | AM.OFFWIN_ITS ---
Intake Vital Signs 3 08/11/23 10:03 Height 5 ft 8 in Weight 179 lb 2 oz BMI 27.2 BP 110/64 Blood Pressure Location Lt brachial Position Sitting Pulse 80 Pulse Source Pulse Oximeter Pulse Oximetry (%) 97 Oxygen Delivery Method Room Air Intake Visit Reasons: EP RT knee injury due to fall/Swelling Patient Tobacco Use Status: Never used Tobacco Allergies naproxen [From Aleve] Allergy (Mild, Verified 08/11/23 10:05) Unknown Medication List - Last Reconciled 08/11/23 by Carl Kwon MD cholecalciferol (vitamin D3) 25 mcg PO DAILY 90 days diclofenac sodium 75 mg PO BID 10 days gabapentin 300 mg PO TID 30 days mometasone 0.1% 1 appl topical DAILY 30 days sertraline 50 mg PO DAILY 90 days valacyclovir (Valtrex) 500 mg PO BID Do you need a note to return to daycare/school/sports/work: No HPI EP RT knee injury due to fall/Swelling 2 HPI0 Details Patient is a 57-year-old female came in today to be evaluated for knee injury which she encountered 7th of this month while walking and tripped fell on her right knee Patient scraped it superficially, skin is healing well however she continued to have pain On examination there is no swelling, movement of patella causes discomfort There is no pain around her calf or behind the knee, range of motion is intact. I am ordering x-ray of her knee, patient will start physical therapy Re-evaluation after physical therapy. [facility] Medical History Well woman exam Anxiety, generalized Depression, major, recurrent Herpes labialis Atopic dermatitis Hx of rosacea Hx of cold sores Surgical History Hx of cholecystectomy Tubal ligation status Hx of appendectomy Family History Mother Family hx of hypertension Family history of Alzheimer's disease Father No problems noted. Brother No problems noted. Brother No problems noted. Brother No problems noted. Brother No problems noted. Social History Household Members: Spouse Housing: House Alcohol intake: current Alcohol intake frequency: holidays/special occasions only Patient Tobacco Use Status: Never used Tobacco e-Cigarette/Vaping Use: Never Used service: No Current occupational status: employed Current occupation: [employer] Sexual orientation: Straight/Heterosexual Gender identity: Female Cognitive needs: No Hearing needs: No Vision needs: No Female Reproductive History Menstrual Age of Menarche: 14 Review of Systems Const All systems reviewed & are unremarkable except as noted in HPI and below Physical Exam Vital Signs: Last Vital Signs Pulse 80 08/11/23 10:03 BP 110/64 08/11/23 10:03 Pulse Ox 97 08/11/23 10:03 Oxygen Delivery Method Room Air 08/11/23 10:03 BMI result Body Mass Index 27.2 Const General: no acute distress Orientation/consciousness: patient oriented x3 Eyes General: appearance normal, both eyes and all related structures Resp Effort & Inspection: normal respiratory effort and able to speak in complete sentences Auscultation: clear to auscultation bilaterally Cardio Other: S1 S2 Neuro General: patient oriented x3 Extrem Elbow/forearm/wrist images: 2 1. Pain with movement of patella, range of motion intact, no swelling, skin abrasion healed well, no pain with calf palpation Psych Mental Status: mental status grossly normal Assessment & Plan Assessment & Plan (1) Injury of knee, right: Code(s): S89.91XA - Unspecified injury of right lower leg, initial encounter Qualifiers: Encounter type: initial encounter Qualified Code(s): S89.91XA - Unspecified injury of right lower leg, initial encounter (2) Knee pain, right: Code(s): M25.561 - Pain in right knee Qualifiers: Chronicity: acute Qualified Code(s): M25.561 - Pain in right knee Plan Patient is a 57-year-old female came in today to be evaluated for knee injury which she encountered 7th of this month while walking and tripped fell on her right knee Patient scraped it superficially, skin is healing well however she continued to have pain On examination there is no swelling, movement of patella causes discomfort There is no pain around her calf or behind the knee, range of motion is intact. I am ordering x-ray of her knee, patient will start physical therapy Re-evaluation after physical therapy. Orders: Orders 2 XR knee RT 2V Today S89.91XA - Unspecified injury of right lower leg, initial encounter PT Evaluation and Treatment Today M25.561 - Pain in right knee Medications: Discontinued 2 diclofenac sodium Discontinued Reason: No Longer Medically Relevant 75 mg PO BID 10 days 20 tabs 0RF pain Coding Level of Care Code Est Pt Level 3 (03547) Diagnoses Injury of right knee, initial encounter S89.91XA Encounter type: initial encounter Acute pain of right knee M25.561 Chronicity: acute
[2023-08-11 10:03] VITALS: BP 110/64; PULSE 80; O2SAT 97; BMI 27.2
== END 2023-08-11 10:50 | disposition home or self-care (01) ==
PROVIDERS: PCP Internal Medicine; Visit Provider Internal Medicine
DX: S89.91XA Unspecified injury of right lower leg, initial encounter (principal); M25.561 Pain in right knee
CPT/HCPCS: 99213

== ENCOUNTER 2023-08-11 10:21 | Outpatient (REF) | payer OTHER, SELFPAY ==
--- NOTE | ~2023-08-11 | XR_ITS ---
EXAMINATION: XR KNEE, RIGHT CLINICAL INFORMATION: Injury COMPARISON: None available. TECHNIQUE: Four views of the right knee. FINDINGS: No acute visible fracture or dislocation. Multicompartment arthritic changes. Enthesopathy at the quadriceps tendon insertion site. Well-corticated 1 mm ossific focus along the lateral margin of the fibular head joint space alignment otherwise maintained. Small knee joint effusion. Soft tissue thickening along the patellar and infrapatellar region. XR/XR knee RT 4V IMPRESSION: 1. No acute visible fracture or dislocation. 2. Multicompartment arthritic changes. 3. Enthesopathy at the quadriceps tendon insertion site. 4. Well-corticated 1 mm ossific focus along the lateral margin of the fibular head joint space alignment otherwise maintained. 5. Small knee joint effusion. 6. Soft tissue thickening along the patellar and infrapatellar region.
== END 2023-08-11 10:22 | disposition home or self-care (01) ==
LOC: HO.HMGCX 10:21
PROVIDERS: PCP Internal Medicine; Visit Provider Internal Medicine
DX: S89.91XA Unspecified injury of right lower leg, initial encounter (principal)
CPT/HCPCS: 73564

== ENCOUNTER 2023-08-25 08:18 | Outpatient (AMB) | payer OTHER, SELFPAY ==
--- NOTE | 2023-08-25 08:23 | A.OFFPC_ITS ---
Vital Signs 08/25/23 08:26 Height 5 ft 8 in Weight 175 lb BMI 26.6 BP 124/70 Blood Pressure Location Lt brachial Position Sitting Pulse 92 Pulse Source Pulse Oximeter Pulse Oximetry (%) 96 Oxygen Delivery Method Room Air Intake Visit Reasons: 4M F/U Allergies naproxen [From Aleve] Allergy (Mild, Verified 08/25/23 08:27) Unknown Medication List - Last Reconciled 08/25/23 by Carl Kwon MD cholecalciferol (vitamin D3) 25 mcg PO DAILY 90 days gabapentin 300 mg PO TID 30 days mometasone 0.1% 1 appl topical DAILY 30 days sertraline 50 mg PO DAILY 90 days valacyclovir (Valtrex) 500 mg PO BID Tobacco use date assessed: 08/25/23 Dental Screening Dental Screen Date: 08/25/23 Did you have a dental visit in the last 12 months?: Yes Did you have a dental problem in the last 6 months where you did not have access to dental care?: No Was dental information given to patient?: Patient has dentist HPI 4M F/U HPI Details Patient is a 57-year-old female came in today to discuss few medical problems She was seen in walk-in clinic on 10 of August when she came in with a chief complaint of pain right knee after injury X-ray was ordered Knee x-ray done 08/11/2023 done after the knee injury, revealed 1. No acute visible fracture or disloca tion. 2. Multicompartment arthritic changes. 3. Enthesopathy at the quadriceps tendo n insertion site. 4. Well-corticated 1 mm ossific focus a long the lateral margin of the fibular head joint space alignment otherwise maintained. 5. Small knee joint effusion. 6. Soft tissue thickening along the pat ellar and infrapatellar region. Physical therapy was ordered but patient never pursued it She says that the knee feels better Now she has pain left leg all the way down to her lower part starting from back Patient has had sciatica before as well, but that was on the right side I would recommend to take a leave with 1 Tylenol, avoid weight is activities until pain is better She is already on gabapentin 3 times a day through Rheumatology I have also offered her pain management referral, but patient says that she is going to [place] in 5 days and she will see the specialist there. She also had a sleep study done in [place] she brought the report, which shows mild sleep apnea Patient will give me a call after she returns from [place] so I can order home sleep study. In June she visited [place] she took her daughter's car to [facility], when she came out of the mall she could not find her car and she panicked and called police And then found out that she parked the car on the other side. Otherwise she does not have any problem with the memory, explained to patient it was a new mall also sometimes [facility] have different entrances This is a common problem. Reassurance provided at this time. Patient have appointment for follow-up in January she will return then. HPI Comments History of Present Illness Details This is a longitudinal relationship between me and the patient. Ongoing care provided, patient was provided time to ask questions [facility] Medical History Well woman exam Anxiety, generalized Depression, major, recurrent Herpes labialis Atopic dermatitis Hx of rosacea Hx of cold sores Surgical History Hx of cholecystectomy Tubal ligation status Hx of appendectomy Family History Mother Family hx of hypertension Family history of Alzheimer's disease Father No problems noted. Brother No problems noted. Brother No problems noted. Brother No problems noted. Brother No problems noted. Social History Household Members: Spouse Housing: House Alcohol intake: current Alcohol intake frequency: holidays/special occasions only Patient Tobacco Use Status: Never used Tobacco e-Cigarette/Vaping Use: Never Used service: No Current occupational status: employed Current occupation: [employer] Sexual orientation: Straight/Heterosexual Gender identity: Female Cognitive needs: No Hearing needs: No Vision needs: No Female Reproductive History Menstrual Age of Menarche: 14 Questionnaire PHQ-9 Over the last 2 weeks, how often have you been bothered by any of the following problems? 1. Little interest or pleasure in doing things: not at all 2. Feeling down, depressed, or hopeless: several days 3. Trouble falling or staying asleep, or sleeping too much: more than half the days 4. Feeling tired or having little energy: several days 5. Poor appetite or overeating: not at all 6. Feeling bad about yourself - or that you are a failure or have let yourself or your family down: not at all 7. Trouble concentrating on things, such as reading the newspaper or watching television: nearly every day 8. Moving or speaking so slowly that other people could have noticed. Or the opposite - being so fidgety or restless that you have been moving around a lot more than usual: not at all 9. Thoughts that you would be better off or of hurting yourself in some way: not at all Total score: 7 Depression Screening Interpretation: Negative Depression Screening Done: Yes 00714 - PHQ-9 Billing: Yes Source: Developed by Drs. Crow Burks, Kavita Pace, Chino freeman nd colleagues, with an educational yousif from [employer]. Thrive Questionnaire Date Thrive assessed: 08/25/23 I am a: Patient What is your living situation today?: I have a steady place to live Within the past 12 months, did the food you bought not last and you didn't have the money to get more?: Never true Within the past 12 months, did you worry whether your food would run out before you got money to buy more?: Never true Do you have trouble paying for medicines?: No Do you have trouble getting transportation to medical appointments?: No Do you have trouble paying your heating and electricity bill?: No Do you have trouble taking care of your child, family member or friend?: No Do you have trouble with day-to-day activities such as bathing, preparing meals, shopping, managing finances, etc.?: No Are you currently unemployed and looking for a job?: No Are you interested in more education?: No Please select the resources that you would like help with: None Currently or been in a relationship where the following occur: No concerns reported THRIVE Score: 0 AUDIT C Alcohol Use Questionnaire (AUDIT-C) 1. How often do you have a drink containing alcohol?: Never 3. How often do you have six or more drinks on one occasion?: Never Total Score: 0 Score Reviewed/Action Taken: Yes KAMLESH-7 AMB Questionnaire KAMLESH-7 Date KAMLESH - 7 assessed: 08/25/23 Feeling nervous, anxious, or on edge: 3 = Nearly every day Not being able to stop or control worryin = More than half the days Worrying too much about different things: 2 = More than half the days Trouble relaxin = Several days Being so restless that it is hard to sit still: 2 = More than half the days Becoming easily annoyed or irritable: 1 = Several days Feeling afraid as if something awful might happen: 2 = More than half the days Total KAMLESH-7 score (0-4 normal; 5-9 mild; 10-14 moderate; 15-21 severe): 13 Source: Developed by Drs. Crow Burks, Kavita Pace, Chino Corrales and colleagues, with an educational yousif from [employer]. KAMLESH-7 Assessment Billing KAMLESH-7 Assessment Tool: KAMLESH-7 Assessment 79509 Review of Systems Const Denies chills and Denies fever(s) ENT Denies epistaxis and Denies nasal discharge Card Denies chest pain Resp Denies chest congestion, Denies cough and Denies hemoptysis GI Denies diarrhea and Denies nausea Skin/Breast Denies rash Neuro Reports no additional complaints Psych Reports no additional complaints Endo Reports no additional complaints Physical exam (Primary Care) Vital Signs: Last Vital Signs Pulse 92 08/25/23 08:26 BP 124/70 08/25/23 08:26 Pulse Ox 96 08/25/23 08:26 Oxygen Delivery Method Room Air 08/25/23 08:26 BMI result Body Mass Index 26.6 Tobacco/Smoking Status: Tobacco use Status Tobacco use date assessed 08/25/23 08/25/23 08:27 Patient Tobacco Use Status Never used Tobacco 08/25/23 08:24 e-Cigarette/Vaping Use Never Used 08/25/23 08:24 PHQ-9: PHQ-9 Score PHQ-9: Total score 7 08/25/23 08:50 Depression Screening Interpretation: Negative Thrive Assessment: Date of Thrive Assessment Date Thrive assessed 08/25/23 08/25/23 08:29 Currently or been in a relationship where the following occur: No concerns reported Const General: cooperative, comfortable and no acute distress Orientation/consciousness: patient oriented x3 HENMT Head: Yes normocephalic Eyes General: appearance normal, both eyes and all related structures Neck Neck: Yes supple Resp Effort & Inspection: normal respiratory effort, no cough and no stridor Cardio Rhythm: regular rhythm Heart sounds: S1 normal heart sound present and S2 normal heart sound present Skin General skin exam: turgor normal Neuro Other: Straight leg slightly positive left side, no pain with percussion over lumbar spine General: patient oriented x3, tone normal and moves all extremities Extrem Right lower extremity: no edema Left lower extremity: no edema Assessment and Plan Assessment & Plan (1) Lumbar radiculopathy: Code(s): M54.16 - Radiculopathy, lumbar region (2) Knee pain, right: Code(s): M25.561 - Pain in right knee Qualifiers: Chronicity: acute Qualified Code(s): M25.561 - Pain in right knee (3) Panic anxiety syndrome: Code(s): F41.0 - Panic disorder [episodic paroxysmal anxiety] (4) Fibromyalgia: Code(s): M79.7 - Fibromyalgia (5) Polyarthralgia: Code(s): M25.50 - Pain in unspecified joint (6) Facet arthritis of lumbar region: Code(s): M47.816 - Spondylosis without myelopathy or radiculopathy, lumbar region Plan Patient is a 57-year-old female came in today to discuss few medical problems She was seen in walk-in clinic on 10 of August when she came in with a chief complaint of pain right knee after injury X-ray was ordered Knee x-ray done 08/11/2023 done after the knee injury, revealed 1. No acute visible fracture or dislocation. 2. Multicompartment arthritic changes. 3. Enthesopathy at the quadriceps tendon insertion site. 4. Well-corticated 1 mm ossific focus along the lateral margin of the fibular head joint space alignment otherwise maintained. 5. Small knee joint effusion. 6. Soft tissue thickening along the patellar and infrapatellar region. Physical therapy was ordered but patient never pursued it She says that the knee feels better Now she has pain left leg all the way down to her lower part starting from back Patient has had sciatica before as well, but that was on the right side I would recommend to take a leave with 1 Tylenol, avoid weight is activities until pain is better She is already on gabapentin 3 times a day through Rheumatology I have also offered her pain management referral, but patient says that she is going to [place] in 5 days and she will see the specialist there. She also had a sleep study done in [place] she brought the report, which shows mild sleep apnea Patient will give me a call after she returns from [place] so I can order home sleep study. In June she visited [place] she took her daughter's car to [facility], when she came out of the mall she could not find her car and she panicked and called police And then found out that she parked the car on the other side. Otherwise she does not have any problem with the memory, explained to patient it was a new mall also sometimes [facility] have different entrances This is a common problem. Reassurance provided at this time. Patient have appointment for follow-up in January she will return then. Coding Level of Care Code Est Pt Level 4 (56532) Complex EM visit Add On G2211 Diagnoses Lumbar radiculopathy M54.16 Acute pain of right knee M25.561 Chronicity: acute Panic anxiety syndrome F41.0 Fibromyalgia M79.7 Polyarthralgia M25.50 Facet arthritis of lumbar region M47.816 Additional Codes KAMLESH-7 Assessment Billing - KAMLESH-7 Assessment Tool: KAMLESH-7 Assessment [id number] ([id number])
[2023-08-25 08:26] VITALS: BP 124/70; PULSE 92; O2SAT 96; BMI 26.6
== END 2023-08-25 09:01 | disposition home or self-care (01) ==
PROVIDERS: PCP Internal Medicine; Visit Provider Internal Medicine
DX: M54.16 Radiculopathy, lumbar region (principal); M25.561 Pain in right knee; F41.0 Panic disorder [episodic paroxysmal anxiety]; M79.7 Fibromyalgia; M25.50 Pain in unspecified joint; M47.816 Spondylosis without myelopathy or radiculopathy, lumbar region
CPT/HCPCS: 99214; G2211

== ENCOUNTER 2023-11-06 12:07 | Outpatient (AMB) | payer OTHER, SELFPAY ==
[2023-11-06 12:07] VITALS: BP 124/76; PULSE 72; O2SAT 97; BMI 26.6
--- NOTE | 2023-11-06 12:07 | A.OFFPC_ITS ---
Vital Signs 11/06/23 12:07 Height 5 ft 8 in Weight 175 lb 2 oz BMI 26.6 BP 124/76 Blood Pressure Location Rt brachial Position Sitting Pulse 72 Pulse Source Pulse Oximeter Pulse Oximetry (%) 97 Oxygen Delivery Method Room Air Intake Visit Reasons: LT Foot/calf numbness tingling Allergies naproxen [From Aleve] Allergy (Mild, Verified 11/06/23 12:08) Unknown Medication List - Last Reconciled 11/06/23 by Calr Kwon MD cholecalciferol (vitamin D3) 25 mcg PO DAILY 90 days mometasone 0.1% 1 appl topical DAILY 30 days sertraline 50 mg PO DAILY 90 days valacyclovir (Valtrex) 500 mg PO BID Tobacco use date assessed: 11/06/23 Dental Screening Dental Screen Date: 11/06/23 Did you have a dental visit in the last 12 months?: Yes Did you have a dental problem in the last 6 months where you did not have access to dental care?: No Was dental information given to patient?: Patient has dentist HPI LT Foot/calf numbness tingling HPI Details Patient is a 57-year-old female who suffers from chronic lumbar pain and fibromyalgia having difficulty sleeping at night, anxiety Came in today as she had a nerve block done in [place] which caused more symptoms with paresthesia going down her left leg She had MRI of her lumbar spine done August of last year that showed disc degeneration at multiple levels within the mid to lower lumbar spine. No canal stenosis. No mass effect on the traversing or foraminal nerve roots. 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 [facility] Medical History Well woman exam Anxiety, generalized Depression, major, recurrent Herpes labialis Atopic dermatitis Hx of rosacea Hx of cold sores Surgical History Hx of cholecystectomy Tubal ligation status Hx of appendectomy Family History Mother Family hx of hypertension Family history of Alzheimer's disease Father No problems noted. Brother No problems noted. Brother No problems noted. Brother No problems noted. Brother No problems noted. Social History Household Members: Spouse Housing: House Alcohol intake: current Alcohol intake frequency: holidays/special occasions only Patient Tobacco Use Status: Never used Tobacco e-Cigarette/Vaping Use: Never Used service: No Current occupational status: employed Current occupation: [employer] Sexual orientation: Straight/Heterosexual Gender identity: Female Cognitive needs: No Hearing needs: No Vision needs: No Female Reproductive History Menstrual Age of Menarche: 14 Questionnaire Thrive Questionnaire Date Thrive assessed: 08/25/23 AUDIT C Alcohol Use Questionnaire (AUDIT-C) 1. How often do you have a drink containing alcohol?: Never 3. How often do you have six or more drinks on one occasion?: Never Total Score: 0 Score Reviewed/Action Taken: Yes KAMLESH-7 AMB Questionnaire KAMLESH-7 Date KAMLESH - 7 assessed: 08/25/23 Source: Developed by Drs. Crow Burks, Kavita Pace, Chino Corrales and colleagues, with an educational yousif from [employer]. Review of Systems Const Denies chills and Denies fever(s) ENT Denies epistaxis and Denies nasal discharge Card Denies chest pain Resp Denies chest congestion, Denies cough and Denies hemoptysis GI Denies diarrhea and Denies nausea Skin/Breast Denies rash Neuro Reports no additional complaints Psych Reports no additional complaints Endo Reports no additional complaints Physical exam (Primary Care) Vital Signs: Last Vital Signs Pulse 72 11/06/23 12:07 BP 124/76 11/06/23 12:07 Pulse Ox 97 11/06/23 12:07 Oxygen Delivery Method Room Air 11/06/23 12:07 BMI result Body Mass Index 26.6 Tobacco/Smoking Status: Tobacco use Status Tobacco use date assessed 11/06/23 11/06/23 12:10 Patient Tobacco Use Status Never used Tobacco 11/06/23 12:09 e-Cigarette/Vaping Use Never Used 11/06/23 12:09 Thrive Assessment: Date of Thrive Assessment Date Thrive assessed 08/25/23 11/06/23 12:09 Const General: cooperative, comfortable and no acute distress Orientation/consciousness: patient oriented x3 HENMT Head: Yes normocephalic Eyes General: appearance normal, both eyes and all related structures Neck Neck: Yes supple Resp Effort & Inspection: normal respiratory effort, no cough and no stridor Cardio Rhythm: regular rhythm Heart sounds: S1 normal heart sound present and S2 normal heart sound present Skin General skin exam: turgor normal Neuro Other: Neuro exam is nonfocal, straight leg negative both sides, spine nontender to percussion General: patient oriented x3, tone normal and moves all extremities Extrem Right lower extremity: no edema Left lower extremity: no edema Assessment and Plan Assessment & Plan (1) Facet arthritis of lumbar region: Code(s): M47.816 - Spondylosis without myelopathy or radiculopathy, lumbar region (2) Fibromyalgia: Code(s): M79.7 - Fibromyalgia (3) Insomnia: Code(s): G47.00 - Insomnia, unspecified Qualifiers: Insomnia type: unspecified Qualified Code(s): G47.00 - Insomnia, unspecified Plan Patient is a 57-year-old female who suffers from chronic lumbar pain and fibromyalgia having difficulty sleeping at night, anxiety Came in today as she had a nerve block done in [place] which caused more symptoms with paresthesia going down her left leg She had MRI of her lumbar spine done August of last year that showed disc degeneration at multiple levels within the mid to lower lumbar spine. No canal stenosis. No mass effect on the traversing or foraminal nerve roots. 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 Orders: Referrals Pain Management Referral M47.816 - Spondylosis without myelopathy or radiculopathy, lumbar region Neurology Referral G47.00 - Insomnia, unspecified, M79.7 - Fibromyalgia Coding Level of Care Code Est Pt Level 3 (39008) Diagnoses Facet arthritis of lumbar region M47.816 Fibromyalgia M79.7 Insomnia, unspecified type G47.00 Insomnia type: unspecified
== END 2023-11-06 13:38 | disposition home or self-care (01) ==
PROVIDERS: PCP Internal Medicine; Visit Provider Internal Medicine
DX: M47.816 Spondylosis without myelopathy or radiculopathy, lumbar region (principal); M79.7 Fibromyalgia; G47.00 Insomnia, unspecified
CPT/HCPCS: 99213

== ENCOUNTER 2023-11-18 10:33 | Outpatient (AMB) | payer OTHER, SELFPAY ==
[2023-11-18 10:41] VITALS: BP 133/71; PULSE 68; O2SAT 100; BMI 26.6
--- NOTE | 2023-11-18 10:41 | A.OFFVIS_ITS ---
Vital Signs 11/18/23 10:41 Height 5 ft 8 in Weight 175 lb BMI 26.6 BP 133/71 Blood Pressure Location Rt brachial Position Sitting Pulse 68 Pulse Source Pulse Oximeter Pulse Oximetry (%) 100 Oxygen Delivery Method Room Air Intake Visit Reasons: Spondylosis without myelopathy, lumbar region Allergies naproxen [From Aleve] Allergy (Mild, Verified 11/18/23 10:42) Unknown Medication List - Last Reconciled 11/18/23 by Collette Dumont cholecalciferol (vitamin D3) 25 mcg PO DAILY 90 days mometasone 0.1% 1 appl topical DAILY 30 days sertraline 50 mg PO DAILY 90 days valacyclovir (Valtrex) 500 mg PO BID HPI Comments Details: Mandie presents back to the office today for follow-up lower back pain. Patient is British-speaking visit was completed with Perla Giron for British transla tion. Two months ago she went to [place] where she had left lumbar radiofrequency ablation. She reports that her pain was improved for 1 week. After one-week she noticed continue lower back pain with radiation down the left leg to the foot which was new for her Endorses burning, tingling, numbness of her left leg down to level of foot. Cramping of the left calf and at times feeling of cool sensation to the left foot. Denies any color changes or swelling. Denies red flag symptoms including new loss of bowel, bladder or saddle anesthesia Pain today is rated a 7/10, constant. Worse at night Previously she was prescribed gabapentin but she did not like how she felt while taking it so discontinued use Continues with NSAIDs and topical ointments but pain persists Prior visit 10/2022: Patient presents back to the office today for follow up. She reports having problems with her insurance since last visit which caused her to miss the last follow up appointment. MRI reviewed with patient today. Since last visit patient states she went to [place] and had facet blocks which provided her 3 or 4 days of pain relief. She believes they used lidocaine and methylprednisolone. She provided a note with limited details of the procedure to be scanned into her chart. Patient c/o lower back pain with burning pain down the right leg. She is taking NSAIDs and doing home PT without relief. She tried muscle relaxers but did not notice any benefit. Prior: Mandie is a pleasant 56-year-old female who presents to the office today for evaluation and management of her chronic lower back pain. Patient reports that she has had this pain for greater than 10 years. Pain today is a 9/10 with radiation laterally down the right leg into the right foot. She has tried physical therapy, chiropractor, massage, NSAIDs, lidocaine patches, ice, heat but none have improved her pain. Her last MRI was greater than 5 years ago; completed in [place] where she subsequently had injections and lumbar radiofrequency ablation. The radiofrequency ablation provided her approximately 3 years of pain relief but the pain has since returned. Patient does endorse pain down the right leg into the foot with some associated numbness and tingling. Patient denies red flag symptoms including loss of bowel, bladder or saddle anesthesia. In terms of muscle damage condition is described as hot, burning, tingling, pins and needles. Pain is intermittent and worse during the day and in the middle the night. Patient reports that the pain is negatively impacting her general activity, normal work, recreational activities, sleep and walking. The patient's past medical history is significant for depression, anxiety, headaches and arthritis. Patient denies implantable devices, pacemaker and/or defibrillator. Patient endorses social alcohol use. Denies use of tobacco, nicotine or illicit substances. [facility] Medical History Well woman exam Anxiety, generalized Depression, major, recurrent Herpes labialis Atopic dermatitis Hx of rosacea Hx of cold sores Surgical History Hx of cholecystectomy Tubal ligation status Hx of appendectomy Family History Mother Family hx of hypertension Family history of Alzheimer's disease Father No problems noted. Brother No problems noted. Brother No problems noted. Brother No problems noted. Brother No problems noted. Social History Household Members: Spouse Housing: House Alcohol intake: current Alcohol intake frequency: holidays/special occasions only Patient Tobacco Use Status: Never used Tobacco e-Cigarette/Vaping Use: Never Used service: No Current occupational status: employed Current occupation: [employer] Sexual orientation: Straight/Heterosexual Gender identity: Female Cognitive needs: No Hearing needs: No Vision needs: No Female Reproductive History Menstrual Age of Menarche: 14 Review of Systems Const All systems reviewed & are unremarkable except as noted in HPI and below Physical Exam Vital Signs: Last Vital Signs Pulse 68 11/18/23 10:41 BP 133/71 11/18/23 10:41 Pulse Ox 100 11/18/23 10:41 Oxygen Delivery Method Room Air 11/18/23 10:41 BMI result Body Mass Index 26.6 General: awake, alert, oriented. Answers questions appropriately. Fully engaged in examination. Skin: warm, dry, intact without visible rashes or lesions. HEENT: Normocephalic. Conjuntivae clear without exudate. Sclera non-icteric. Hearing intact. Cardiac: External chest normal in appearance. Respiratory: No signs of trauma. No signs of respiratory distress. No cough, audible wheezing or stridor. Abdomen: without gross distension. Neurological: Oriented to person, place, time and situation. Thought process intact. No gait abnormalities appreciated. Psychiatric: Appropriate mood and affect. Good judgment and insight. MS: Able to stand on bilateral tiptoes and bilateral heels. Able to transition from sit to stand unassisted. Ambulates with bilaterally normal heel strike and toe off Visual inspection without gross abnormality Strength: 5/5 BLE SLR positive on the left Results Reviewed Results Reviewed: 09/17/2022 EXAMINATION: MR LUMBAR SPINE WITHOUT CONTRAST CLINICAL INFORMATION: Lumbar radiculopathy. COMPARISON: Lumbar spine radiographs 09/02/2022. TECHNIQUE: MRI of the lumbar spine was obtained using routine sequences without contrast. FINDINGS: Alignment is normal. Vertebral body heights are preserved. No acute bone marrow signal changes. There is disc desiccation at multiple levels without substantial loss of intervertebral disc height. The tip of the conus medullaris is located at L1-L2. No mass effect on the conus. Visualized distal cord signal intensity is normal. At L1-L2 the annular contour is normal. No canal stenosis. No mass effect on the traversing or foraminal nerve roots. At L2-L3 the annular contour is normal. No canal stenosis. No mass effect on the traversing or foraminal nerve roots. At L3-L4 there is a shallow left far lateral protrusion superimposed upon a slightly bulging disc. No canal stenosis. No mass effect on the traversing or foraminal nerve roots. At L4-L5 there is a slightly bulging disc. Bilateral facet degenerative change. No canal stenosis. No mass effect on the traversing or foraminal nerve roots. At L5-S1 there is a right foraminal annular fissure associated with a slightly bulging disc. Bilateral facet degenerative change. No canal stenosis. No mass effect on the traversing or foraminal nerve roots. Limited visualization of the retroperitoneal anatomy reveals no abnormal finding. Psoas and paraspinal muscle groups are symmetric. MR/MR lumbar spine wo con IMPRESSION: There is disc degeneration at multiple levels within the mid to lower lumbar spine. No canal stenosis. No mass effect on the traversing or foraminal nerve roots. Assessment & Plan Assessment & Plan (1) Lumbar radiculopathy: Code(s): M54.16 - Radiculopathy, lumbar region Category: Medical (2) Lumbar spondylosis: Code(s): M47.816 - Spondylosis without myelopathy or radiculopathy, lumbar region Category: Medical (3) Facet arthritis of lumbar region: Code(s): M47.816 - Spondylosis without myelopathy or radiculopathy, lumbar region Category: Medical Plan Mandie is a very pleasant 57-year-old female who presented back to the office today for follow up lower back pain History, physical exam and provocative testing consistent with lumbar radiculopathy. This is new since left lumbar radiofrequency ablation that was performed in [place] 2 months ago. MRI ordered for evaluation EMG ordered for evaluation Discontinue gabapentin. No prescription for amitriptyline 10 mg p.o. daily at bedtime All questions and concerns have been answered and patient agrees with the plan. Follow up after MRI/EMG, sooner if needed Orders: Orders NE electromyogram (EMG) Today M54.16 - Radiculopathy, lumbar region MR lumbar spine wo con Today M54.16 - Radiculopathy, lumbar region Medications: New amitriptyline 10 mg PO BEDTIME 30 tabs 1RF Coding Level of Care Code Est Pt Level 3 (97204) Complex EM visit Add On G2211 Diagnoses Lumbar radiculopathy M54.16 Lumbar spondylosis M47.816 Facet arthritis of lumbar region M47.816
== END 2023-11-18 11:00 | disposition home or self-care (01) ==
PROVIDERS: PCP Internal Medicine; Visit Provider Registered Nurse Emergency
DX: M54.16 Radiculopathy, lumbar region (principal); M47.816 Spondylosis without myelopathy or radiculopathy, lumbar region
CPT/HCPCS: 99213; G2211

== ENCOUNTER → 2023-11-18 10:33 | Outpatient (BNVA) | payer OTHER, SELFPAY | PROVIDERS: PCP Internal Medicine; Visit Provider Registered Nurse Emergency | DX: M47.816 Spondylosis without myelopathy or radiculopathy, lumbar region (principal); M54.16 Radiculopathy, lumbar region | CPT/HCPCS: 99212 ==

== ENCOUNTER 2023-12-11 12:35 | Outpatient (REF) | payer OTHER, SELFPAY ==
--- NOTE | 2023-12-11 | EMG_ITS ---
Chief complaint: Chronic back pain. Had radiofrequency ablation in July in [place]. One week after started have tingling on left foot. Reason for referral: Evaluate for peroneal neuropathy versus radiculopathy Referred by: Katy Wood NP Procedure done: Bilateral lower extremity EMG/NCS Precautions and/or limitations: Poor tolerance of needle EMG The limb temperature was monitored continuously and remained between 32-36 degrees C during the performance of the NCS. Nerve Conduction Studies Anti Sensory Summary Table ?Stim Site NR Onset (ms) Norm Onset (ms) Peak (ms) Norm Peak (ms) O-P Amp (?V) Norm O-P Amp Site1 Site2 Delta-0 (ms) Dist (cm) Daniel (m/s) Norm Daniel (m/s) Left Sup Peron Anti Sensory (Ankle) Lateral Leg ? 1.6 2.4 <4.4 6.4 >5.0 Lateral Leg Ankle 1.6 14.0 88 Left Sural Anti Sensory (Lat Mall) Calf ? 2.3 3.6 <4.0 12.7 >5.0 Calf Lat Mall 2.3 14.0 61 Right Sural Anti Sensory (Lat Mall) Calf ? 1.5 3.4 <4.0 34.4 >5.0 Calf Lat Mall 1.5 14.0 93 Motor Summary Table ?Stim Site NR Onset (ms) Norm Onset (ms) O-P Amp (mV) Norm O-P Amp iAmp (mV) Amp (1st) (%) Site1 Site2 Delta-0 (ms) Dist (cm) Daniel (m/s) Norm Daniel (m/s) Left Peroneal Motor (Ext Dig Brev) Ankle ? 5.2 <4.0 1.9 >2.5 2.2 100.0 Ankle Ext Dig Brev 5.2 0.0 B Fib ? 12.0 1.1 1.3 57.9 B Fib Ankle 6.8 33.0 49 >40 Poplt ? 12.7 1.6 1.8 84.2 Poplt B Fib 0.7 4.0 57 >40 Right Peroneal Motor (Ext Dig Brev) Ankle ? 3.6 <4.0 9.0 >2.5 10.8 100.0 Ankle Ext Dig Brev 3.6 0.0 B Fib ? 11.1 8.2 9.8 91.1 B Fib Ankle 7.5 35.0 47 >40 Poplt ? 11.7 8.1 9.7 90.0 Poplt B Fib 0.6 5.0 83 >40 Left Tibial Motor (Abd Vilchis Brev) Ankle ? 4.8 <5 4.9 >2.5 7.8 100.0 Ankle Abd Vilchis Brev 4.8 0.0 Knee ? 13.4 11.2 17.8 228.6 Knee Ankle 8.6 41.0 48 >40 Right Tibial Motor (Abd Vilchis Brev) Ankle ? 3.6 <5 12.3 >2.5 18.3 100.0 Ankle Abd Vilchis Brev 3.6 0.0 Knee ? 11.8 10.3 15.1 83.7 Knee Ankle 8.2 43.0 52 >40 EMG ?Side Muscle Nerve Root Ins Act Fibs Psw Amp Dur Poly Recrt Int Pat Comment Left AntTibialis Dp Br Peron L4-5 Nml Nml Nml Nml Nml 0 Nml Complete Left VastusMed Femoral L2-4 Nml Nml Nml Nml Nml 0 Nml Complete Left Peroneus Long Sup Br Peron L5-S1 Nml Nml Nml Nml Nml 0 Nml Complete FINDINGS: Left peroneal nerve showed prolonged distal latency, small amplitude and normal conduction velocity. All other nerves tested, including left superficial peroneal sensory nerve, were within normal. Concentric needle EMG was performed in selected/limited muscles of the left lower extremity. Study did not reveal signs of electric abnormalities as shown in the table above. Patient could not tolerate needle EMG much. IMPRESSION: 1. This is an abnormal study. 2. 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 3. There is no electrodiagnostic evidence for tibial neuropathy. lumbosacral plexopathy, lumbar radiculopathy, or peripheral neuropathy. Thank you for your kind referral. Daphney Lopez MD, ISABELLA Board Certified, [place] [employer] and Rehabilitation (ABPMR) Board Certified, [place] Board of Electrodiagnostic Medicine (ABEM) [place]OD[place] [id number] [facility]
== END 2023-12-11 12:36 | disposition home or self-care (01) ==
LOC: HO.NEURO 12:35
PROVIDERS: PCP Internal Medicine; Visit Provider Registered Nurse Emergency
DX: M54.16 Radiculopathy, lumbar region (principal)
CPT/HCPCS: 95885; 95910

== ENCOUNTER → 2023-12-11 13:33 | Outpatient (BNV) | payer OTHER, SELFPAY | PROVIDERS: PCP Internal Medicine; Visit Provider Physical Medicine & Rehabilitation | DX: G62.89 Other specified polyneuropathies (principal) | CPT/HCPCS: 95885; 95910 ==

== ENCOUNTER 2024-01-26 15:03 | Outpatient (AMB) | payer OTHER, SELFPAY ==
--- NOTE | 2024-01-26 15:06 | A.OFFPC_ITS ---
Vital Signs 01/26/24 15:09 Height 5 ft 8 in Weight 175 lb 2 oz BMI 26.6 BP 118/72 Blood Pressure Location Rt brachial Position Sitting Pulse 89 Pulse Source Pulse Oximeter Pulse Oximetry (%) 98 Oxygen Delivery Method Room Air Intake Visit Reasons: Annual PE Allergies naproxen [From Aleve] Allergy (Mild, Verified 01/26/24 15:11) Unknown Medication List - Last Reconciled 01/26/24 by Carl Kwon MD amitriptyline 10 mg PO BEDTIME cholecalciferol (vitamin D3) 25 mcg PO DAILY 90 days mometasone 0.1% 1 appl topical DAILY 30 days sertraline 50 mg PO DAILY 90 days valacyclovir (Valtrex) 500 mg PO BID Tobacco use date assessed: 01/26/24 Dental Screening Dental Screen Date: 01/26/24 Did you have a dental visit in the last 12 months?: Yes Did you have a dental problem in the last 6 months where you did not have access to dental care?: No Was dental information given to patient?: Patient has dentist HPI Annual PE HPI Details Chief Complaint The patient reports shoulder pain , came in for physical exam appointment Health Maintenance - Completed mammogram in March, [facility] results. - Gynecological appointment completed in January of the previous year; upcoming gynecology appointment scheduled for the . - Blood tests in May showed no anemia, stable liver enzymes, and good cholesterol levels. - Discussed the need for a colonoscopy w hich the patient has not yet undertaken. - Flu vaccine declined. Assessment and Plan 58-year-old female with a history of anx iety, presenting for a wellness visit and management of shoulder pain and stress. The patient reports persistent right shoulder pain, initially thought to be due to sleeping position, unaffected by [id number] analgesics. She also speaks of stress related to familial matters, though currently improved. Her anxiety is medically managed with a reduced dosage of sertraline. Eczema is present and managed with topical treatment. Overall laboratory evaluations are stable with good control of hematological and biochemical parameters. 1. Shoulder Pain The patient describes persistent right shoulder pain. Referred to an job placement specialist at [facility] for further evaluation. Advised to avoid excess use of ibuprofen and to continue using topical analgesic creams. Pain management consultation is scheduled. 2. Headache Previous neurological management with Amitriptyline has been stopped. The patient indicated a postponement due to travel plans. No new medication prescribed at this time. She will book another appointment with the Neurology 3. Anxiety Anxiety currently managed with sertraline, which the patient has reduced to 25 mg. Encouraged to continue this regimen, especially with improvement in personal stress factors. 4. Stress Social stressors related to caregiving responsibilities have decreased. Continued non-pharmacological strategies to manage stress were discussed. 5. Eczema Treatment includes the use of topical mometasone as needed. Patient instructed to apply daily until rash resolves, then stop. Resume if eczema recurs. Patient Instructions - Follow up with the orthopedic speciali st for shoulder pain as scheduled. - Continue current anxiety medication at 25 mg daily. - Use topical mometasone for eczema as i nstructed. - Undergo blood tests as ordered; can do so any Thursday. - Consider scheduling a colonoscopy when ready. - Return for a wellness examination in o ne year and sooner if issues arise. Follow-up six-month [facility] Medical History Well woman exam Anxiety, generalized Depression, major, recurrent Herpes labialis Atopic dermatitis Hx of rosacea Hx of cold sores Surgical History Hx of cholecystectomy Tubal ligation status Hx of appendectomy Family History Mother Family hx of hypertension Family history of Alzheimer's disease Father No problems noted. Brother No problems noted. Brother No problems noted. Brother No problems noted. Brother No problems noted. Social History Household Members: Spouse Housing: House Alcohol intake: current Alcohol intake frequency: holidays/special occasions only Patient Tobacco Use Status: Never used Tobacco e-Cigarette/Vaping Use: Never Used service: No Current occupational status: employed Current occupation: [employer] Sexual orientation: Straight/Heterosexual Gender identity: Female Cognitive needs: No Hearing needs: No Vision needs: No Female Reproductive History Menstrual Age of Menarche: 14 Questionnaire PHQ-9 Over the last 2 weeks, how often have you been bothered by any of the following problems? 1. Little interest or pleasure in doing things: not at all 2. Feeling down, depressed, or hopeless: several days 3. Trouble falling or staying asleep, or sleeping too much: nearly every day 4. Feeling tired or having little energy: more than half the days 5. Poor appetite or overeating: not at all 6. Feeling bad about yourself - or that you are a failure or have let yourself or your family down: not at all 7. Trouble concentrating on things, such as reading the newspaper or watching television: not at all 8. Moving or speaking so slowly that other people could have noticed. Or the opposite - being so fidgety or restless that you have been moving around a lot more than usual: not at all 9. Thoughts that you would be better off or of hurting yourself in some way: not at all Total score: 6 Depression Screening Interpretation: Negative Depression Screening Done: Yes 34072 - PHQ-9 Billing: Yes Source: Developed by Drs. Crow Burks, Kavita Pace, Chino Corrales and colleagues, with an educational yousif from [employer]. Thrive Questionnaire Date Thrive assessed: 01/26/24 I am a: Patient What is your living situation today?: I have a steady place to live Within the past 12 months, did the food you bought not last and you didn't have the money to get more?: Never true Within the past 12 months, did you worry whether your food would run out before you got money to buy more?: Never true Do you have trouble paying for medicines?: No Do you have trouble getting transportation to medical appointments?: No Do you have trouble paying your heating and electricity bill?: No Do you have trouble taking care of your child, family member or friend?: No Do you have trouble with day-to-day activities such as bathing, preparing meals, shopping, managing finances, etc.?: No Are you currently unemployed and looking for a job?: No Are you interested in more education?: No Please select the resources that you would like help with: None Currently or been in a relationship where the following occur: No concerns reported THRIVE Score: 0 AUDIT C Alcohol Use Questionnaire (AUDIT-C) 1. How often do you have a drink containing alcohol?: Never 3. How often do you have six or more drinks on one occasion?: Never Total Score: 0 Score Reviewed/Action Taken: Yes KAMLESH-7 AMB Questionnaire KAMLESH-7 Date KAMLESH - 7 assessed: 08/25/23 Source: Developed by Drs. Crow Burks, Kavita Pace, Chino Corrales and colleagues, with an educational yousif from [employer]. Review of Systems Const Denies chills, Denies fever(s) and Denies headache(s) Eyes Denies blurry vision ENT Denies headache(s), Denies nasal discharge, Denies nasal obstruction, Denies odynophagia and Denies sinus pain Card Denies chest pain at rest and Denies chest pain with activity Resp Denies cough and Denies hemoptysis GI Denies diarrhea, Denies odynophagia, Denies vomiting and Denies hematemesis Reports as per HPI Musc Denies abnormal gait Skin/Breast Reports as per HPI Neuro Denies Neuro-related abnormal movements, Denies Abnormal speech present, Denies abnormal gait, Denies headache(s) and Denies Sensory deficit (Neuro) Psych Denies mood swings and Denies paranoia Endo Reports as per HPI Chuck/Lymph Reports as per HPI Aller/Immun Reports as per HPI Physical exam (Primary Care) Vital Signs: Last Vital Signs Pulse 89 01/26/24 15:09 BP 118/72 01/26/24 15:09 Pulse Ox 98 01/26/24 15:09 Oxygen Delivery Method Room Air 01/26/24 15:09 BMI result Body Mass Index 26.6 Tobacco/Smoking Status: Tobacco use Status Tobacco use date assessed 01/26/24 01/26/24 15:12 Patient Tobacco Use Status Never used Tobacco 01/26/24 15:08 e-Cigarette/Vaping Use Never Used 01/26/24 15:08 PHQ-9: PHQ-9 Score PHQ-9: Total score 6 01/26/24 15:12 Depression Screening Interpretation: Negative Thrive Assessment: Date of Thrive Assessment Date Thrive assessed 01/26/24 01/26/24 15:08 Currently or been in a relationship where the following occur: No concerns reported Const General: cooperative, comfortable and no acute distress Orientation/consciousness: patient oriented x3 HENMT Head: Yes normocephalic and Yes atraumatic Eyes General: appearance normal, both eyes and all related structures Pupils: Equal, round and reactive pupils present EOM: EOMs intact bilaterally Neck Neck: Yes supple and No lymphadenopathy Thyroid: Thyroid normal Lymphatic: no lymphadenopathy noted Resp Effort & Inspection: normal respiratory effort and able to speak in complete sentences Auscultation: clear to auscultation bilaterally Cardio Heart sounds: S1 normal heart sound present and S2 normal heart sound present GI Palpation (GI): Soft to palpation and nontender Auscultation: normal bowel sounds General: Yes no CVA tenderness Back/Spine/Pelvis Back: no CVA tenderness Skin General skin exam: elasticity normal and turgor normal Neuro General: patient oriented x3 and gait normal Cranial nerves: Yes Equal, round and reactive pupils present Speech: No Abnormal speech present Sensory Exam: No Sensory deficit (Neuro) Coordination: tandem gait normal and Romberg test negative Extrem Other: Right shoulder with limited range of motion secondary to pain unable to lift above head General: No edema Coding Level of Care Code Est Pt Level 3 (36705) Est Pt Prev Care 40-64y(03077) Diagnoses Encounter for general adult medical examination with abnormal findings Z00.01 Chronic right shoulder pain M25.511; G89.29 Chronicity: chronic Intrinsic atopic dermatitis L20.84 Atopic dermatitis type: intrinsic Recurrent major depressive disorder, in full remission F33.42 Active/Remission status: in full remission Anxiety, generalized F41.1 LFT elevation R79.89 Migraine without status migrainosus, not intractable, unspecified migraine type G43.909 Migraine type: unspecified Status migrainosus presence: without status migrainosus Intractability: not intractable Impaired fasting blood sugar R73.01 Difficulty sleeping G47.9 Additional Codes PHQ-9 - 53944 - PHQ-9 Billing: Yes ([id number]) Assessment & Plan Assessment & Plan (1) Encounter for general adult medical examination with abnormal findings: Code(s): Z00.01 - Encounter for general adult medical examination with abnormal findings Category: Medical (2) Shoulder pain, right: Code(s): M25.511 - Pain in right shoulder Category: Medical Qualifiers: Chronicity: chronic Qualified Code(s): M25.511 - Pain in right shoulder; G89.29 - Other chronic pain (3) Atopic dermatitis: Code(s): L20.9 - Atopic dermatitis, unspecified Category: Medical Qualifiers: Atopic dermatitis type: intrinsic Qualified Code(s): L20.84 - Intrinsic (allergic) eczema (4) Depression, major, recurrent: Code(s): F33.9 - Major depressive disorder, recurrent, unspecified Category: Medical Qualifiers: Active/Remission status: in full remission Qualified Code(s): F33.42 - Major depressive disorder, recurrent, in full remission (5) Anxiety, generalized: Code(s): F41.1 - Generalized anxiety disorder Category: Medical (6) LFT elevation: Code(s): R79.89 - Other specified abnormal findings of blood chemistry Category: Medical (7) Migraine headache: Code(s): G43.909 - Migraine, unspecified, not intractable, without status migrainosus Category: Medical Qualifiers: Migraine type: unspecified Status migrainosus presence: without status migrainosus Intractability: not intractable Qualified Code(s): G43.909 - Migraine, unspecified, not intractable, without status migrainosus (8) Impaired fasting blood sugar: Code(s): R73.01 - Impaired fasting glucose Category: Medical (9) Difficulty sleeping: Code(s): G47.9 - Sleep disorder, unspecified Category: Medical Plan Chief Complaint The patient reports shoulder pain , came in for physical exam appointment Health Maintenance - Completed mammogram in March, normal results. - Gynecological appointment completed in January of the previous year; upcoming gynecology appointment scheduled for the . - Blood tests in May showed no anemia, stable liver enzymes, and good cholesterol levels. - Discussed the need for a colonoscopy which the patient has not yet undertaken. - Flu vaccine declined. Assessment and Plan 58-year-old female with a history of anxiety, presenting for a wellness visit and management of shoulder pain and stress. The patient reports persistent right shoulder pain, initially thought to be due to sleeping position, unaffected by [id number] analgesics. She also speaks of stress related to familial matters, though currently improved. Her anxiety is medically managed with a reduced dosage of sertraline. Eczema is present and managed with topical treatment. Overall laboratory evaluations are stable with good control of hematological and biochemical parameters. 1. Shoulder Pain The patient describes persistent right shoulder pain. Referred to an job placement specialist at [facility] for further evaluation. Advised to avoid excess use of ibuprofen and to continue using topical analgesic creams. Pain management consultation is scheduled. 2. Headache Previous neurological management with Amitriptyline has been stopped. The patient indicated a postponement due to travel plans. No new medication prescribed at this time. She will book another appointment with the Neurology 3. Anxiety Anxiety currently managed with sertraline, which the patient has reduced to 25 mg. Encouraged to continue this regimen, especially with improvement in personal stress factors. 4. Stress Social stressors related to caregiving responsibilities have decreased. Continued non-pharmacological strategies to manage stress were discussed. 5. Eczema Treatment includes the use of topical mometasone as needed. Patient instructed to apply daily until rash resolves, then stop. Resume if eczema recurs. Patient Instructions - Follow up with the job placement specialist for shoulder pain as scheduled. - Continue current anxiety medication at 25 mg daily. - Use topical mometasone for eczema as instructed. - Undergo blood tests as ordered; can do so any Thursday. - Consider scheduling a colonoscopy when ready. - Return for a wellness examination in one year and sooner if issues arise. Follow-up six-month Orders: Orders Hemoglobin A1c Today F33.42 - Major depressive disorder, recurrent, in full remission, F41.1 - Generalized anxiety disorder, G43.909 - Migraine, unspec ified, not intractable, without status migrainosus, G47.9 - Sleep disorder, unspecified, G89.29 - Other chronic pain, L20.84 - Intrinsic (allergic) eczema, M25.511 - Pain in right shoulder, R73.01 - Impaired fasting glucose, R79.89 - Other specified abnormal findings of blood chemistry, Z00.01 - Encounter for general adult medical examination with abnormal findings TSH reflex Free T4 Today F33.42 - Major depressive disorder, recurrent, in full remission, F41.1 - Generalized anxiety disorder, G43.909 - Migraine, unspecified, not intractable, without status migrainosus, G47.9 - Sleep disorder, unspecified, G89.29 - Other chronic pain, L20.84 - Intrinsic (allergic) eczema, M25.511 - Pain in right shoulder, R73.01 - Impaired fasting glucose, R79.89 - Other specified abnormal findings of blood chemistry, Z00.01 - Encounter for general adult medical examination with abnormal findings Complete Blood Count Auto Diff Today F33.42 - Major depressive disorder, recurrent, in full remission, F41.1 - Generalized anxiety disorder, G43.909 - Migraine, unspecified, not intractable, without status migrainosus, G47.9 - Sleep disorder, unspecified, G89.29 - Other chronic pain, L20.84 - Intrinsic (allergic) eczema, M25.511 - Pain in right shoulder, R73.01 - Impaired fasting glucose, R79.89 - Other specified abnormal findings of blood chemistry, Z00.01 - Encounter for general adult medical examination with abnormal findings Comprehensive [place]. Panel Fast Today F33.42 - Major depressive disorder, recurrent, in full remission, F41.1 - Generalized anxiety disorder, G43.909 - Migraine, unspecified, not intractable, without status migrainosus, G47.9 - Sleep disorder, unspecified, G89.29 - Other chronic pain, L20.84 - Intrinsic (allergic) eczema, M25.511 - Pain in right shoulder, R73.01 - Impaired fasting glucose, R79.89 - Other specified abnormal findings of blood chemistry, Z00.01 - Encounter for general adult medical examination with abnormal findings Lipid Panel Today F33.42 - Major depressive disorder, recurrent, in full remission, F41.1 - Generalized anxiety disorder, G43.909 - Migraine, unspecified, not intractable, without status migrainosus, G47.9 - Sleep disorder, unspecified, G89.29 - Other chronic pain, L20.84 - Intrinsic (allergic) eczema, M25.511 - Pain in right shoulder, R73.01 - Impaired fasting glucose, R79.89 - Other specified abnormal findings of blood chemistry, Z00.01 - Encounter for general adult medical examination with abnormal findings Referrals Orthopedics Referral M25.511 - Pain in right shoulder
[2024-01-26 15:09] VITALS: BP 118/72; PULSE 89; O2SAT 98; BMI 26.6
== END 2024-01-26 15:33 | disposition home or self-care (01) ==
PROVIDERS: PCP Internal Medicine; Visit Provider Internal Medicine
DX: Z00.00 Encounter for general adult medical examination without abnormal findings (principal); M25.511 Pain in right shoulder; F33.42 Major depressive disorder, recurrent, in full remission; G89.29 Other chronic pain; L20.84 Intrinsic (allergic) eczema; F41.1 Generalized anxiety disorder; R79.89 Other specified abnormal findings of blood chemistry; G43.909 Migraine, unspecified, not intractable, without status migrainosus; R73.01 Impaired fasting glucose; G47.9 Sleep disorder, unspecified

== ENCOUNTER → 2024-01-26 15:03 | Outpatient (BNVA) | payer OTHER, SELFPAY | PROVIDERS: PCP Internal Medicine; Visit Provider Internal Medicine | DX: Z00.01 Encounter for general adult medical examination with abnormal findings (principal); M25.511 Pain in right shoulder; G89.29 Other chronic pain; L20.84 Intrinsic (allergic) eczema; F33.42 Major depressive disorder, recurrent, in full remission; F41.1 Generalized anxiety disorder; R79.89 Other specified abnormal findings of blood chemistry; G43.909 Migraine, unspecified, not intractable, without status migrainosus | CPT/HCPCS: 96127; 99396 ==

== ENCOUNTER 2024-01-27 11:02 | Outpatient (AMB) | payer OTHER, SELFPAY ==
--- NOTE | 2024-01-27 11:31 | A.OFFVIS_ITS ---
Vital Signs 01/27/24 11:32 Height 5 ft 8 in Weight 174 lb BMI 26.5 BP 144/80 H Blood Pressure Location Rt brachial Position Sitting Pulse 69 Pulse Source Pulse Oximeter Pulse Oximetry (%) 98 Oxygen Delivery Method Room Air Intake Visit Reasons: Discuss Nerve Conduction Study Results Intake Note: Pain today 09/01 Construction Rep Required: No Accompanied by: Self / Same As Patient Allergies naproxen [From Aleve] Allergy (Mild, Verified 01/27/24 11:36) Unknown HPI Comments Details: Patient presents back to the office today for follow-up, review of recent EMG EMG reviewed, results as per below Continues with numbness, tingling, pins and needles of the left foot from the ankle down with occasional radiation of the pain starting midcalf. This is all the time and worse at night Also with intermittent lower back pain that happens about 3 times a week. Taking amitriptyline at bedtime. Reports this helps some especially with sleeping at night Prior: Mandie presents back to the office today for follow-up lower back pain. Patient is Luxembourgish-speaking visit was completed with Perla Giron for Luxembourgish translation. Two months ago she went to [place] where she had left lumbar radiofrequency ablation. She reports that her pain was improved for 1 week. After one-week she noticed continue lower back pain with radiation down the left leg to the foot which was new for her Endorses burning, tingling, numbness of her left leg down to level of foot. Cramping of the left calf and at times feeling of cool sensation to the left foot. Denies any color changes or swelling. Denies red flag symptoms including new loss of bowel, bladder or saddle anesthesia Pain today is rated a 7/10, constant. Worse at night Previously she was prescribed gabapentin but she did not like how she felt while taking it so discontinued use Continues with NSAIDs and topical ointments but pain persists Prior visit 10/2022: Patient presents back to the office today for follow up. She reports having problems with her insurance since last visit which caused her to miss the last follow up appointment. MRI reviewed with patient today. Since last visit patient states she went to [place] and had facet blocks which provided her 3 or 4 days of pain relief. She believes they used lidocaine and methylprednisolone. She provided a note with limited details of the procedure to be scanned into her chart. Patient c/o lower back pain with burning pain down the right leg. She is taking NSAIDs and doing home PT without relief. She tried muscle relaxers but did not notice any benefit. Prior: Mandie is a pleasant 56-year-old female who presents to the office today for evaluation and management of her chronic lower back pain. Patient reports that she has had this pain for greater than 10 years. Pain today is a 9/10 with radiation laterally down the right leg into the right foot. She has tried physical therapy, chiropractor, massage, NSAIDs, lidocaine patches, ice, heat but none have improved her pain. Her last MRI was greater than 5 years ago; completed in [place] where she subsequently had injections and lumbar radiofrequency ablation. The radiofrequency ablation provided her approximately 3 years of pain relief but the pain has since returned. Patient does endorse pain down the right leg into the foot with some associated numbness and tingling. Patient denies red flag symptoms including loss of bowel, bladder or saddle anesthesia. In terms of muscle damage condition is described as hot, burning, tingling, pins and needles. Pain is intermittent and worse during the day and in the middle the night. Patient reports that the pain is negatively impacting her general activity, normal work, recreational activities, sleep and walking. The patient's past medical history is significant for depression, anxiety, headaches and arthritis. Patient denies implantable devices, pacemaker and/or defibrillator. Patient endorses social alcohol use. Denies use of tobacco, nicotine or illicit substances. [facility] Medical History Well woman exam Anxiety, generalized Depression, major, recurrent Herpes labialis Atopic dermatitis Hx of rosacea Hx of cold sores Surgical History Hx of cholecystectomy Tubal ligation status Hx of appendectomy Family History Mother Family hx of hypertension Family history of Alzheimer's disease Father No problems noted. Brother No problems noted. Brother No problems noted. Brother No problems noted. Brother No problems noted. Social History Household Members: Spouse Housing: House Alcohol intake: current Alcohol intake frequency: holidays/special occasions only Patient Tobacco Use Status: Never used Tobacco e-Cigarette/Vaping Use: Never Used service: No Current occupational status: employed Current occupation: [employer] Sexual orientation: Straight/Heterosexual Gender identity: Female Cognitive needs: No Hearing needs: No Vision needs: No Female Reproductive History Menstrual Age of Menarche: 14 Review of Systems Const All systems reviewed & are unremarkable except as noted in HPI and below Physical Exam Vital Signs: Last Vital Signs Pulse 69 01/27/24 11:32 BP 144/80 H 01/27/24 11:32 Pulse Ox 98 01/27/24 11:32 Oxygen Delivery Method Room Air 01/27/24 11:32 BMI result Body Mass Index 26.5 General: awake, alert, oriented. Answers questions appropriately. Fully engaged in examination. Skin: warm, dry, intact without visible rashes or lesions. HEENT: Normocephalic. Conjuntivae clear without exudate. Sclera non-icteric. Hearing intact. Cardiac: External chest normal in appearance. Respiratory: No signs of trauma. No signs of respiratory distress. No cough, audible wheezing or stridor. Abdomen: without gross distension. Neurological: Oriented to person, place, time and situation. Thought process intact. No gait abnormalities appreciated. Psychiatric: Appropriate mood and affect. Good judgment and insight. MS: Able to transition from sit to stand unassisted. Ambulates with bilaterally normal heel strike and toe off Visual inspection without gross abnormality Strength: 5/5 BLE Left foot: Warm to the touch, CMS intact. Light touch sensation intact Results Reviewed Results Reviewed: 12/11/2023 EMG IMPRESSION: 1. This is an abnormal study. 2. 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 3. There is no electrodiagnostic evidence for tibial neuropathy. lumbosacral plexopathy, lumbar radiculopathy, or peripheral neuropathy. 09/17/2022 MR LUMBAR SPINE WITHOUT CONTRAST FINDINGS: Alignment is normal. Vertebral body heights are preserved. No acute bone marrow signal changes. There is disc desiccation at multiple levels without substantial loss of intervertebral disc height. The tip of the conus medullaris is located at L1-L2. No mass effect on the conus. Visualized distal cord signal intensity is normal. At L1-L2 the annular contour is normal. No canal stenosis. No mass effect on the traversing or foraminal nerve roots. At L2-L3 the annular contour is normal. No canal stenosis. No mass effect on the traversing or foraminal nerve roots. At L3-L4 there is a shallow left far lateral protrusion superimposed upon a slightly bulging disc. No canal stenosis. No mass effect on the traversing or foraminal nerve roots. At L4-L5 there is a slightly bulging disc. Bilateral facet degenerative change. No canal stenosis. No mass effect on the traversing or foraminal nerve roots. At L5-S1 there is a right foraminal annular fissure associated with a slightly bulging disc. Bilateral facet degenerative change. No canal stenosis. No mass effect on the traversing or foraminal nerve roots. Limited visualization of the retroperitoneal anatomy reveals no abnormal finding. Psoas and paraspinal muscle groups are symmetric. IMPRESSION: There is disc degeneration at multiple levels within the mid to lower lumbar spine. No canal stenosis. No mass effect on the traversing or foraminal nerve roots. Assessment & Plan Assessment & Plan (1) Peroneal neuropathy: Code(s): G57.30 - Lesion of lateral popliteal nerve, unspecified lower limb Category: Medical (2) Lumbar spondylosis: Code(s): M47.816 - Spondylosis without myelopathy or radiculopathy, lumbar region Category: Medical (3) Lumbar radiculopathy: Code(s): M54.16 - Radiculopathy, lumbar region Category: Medical (4) Facet arthritis of lumbar region: Code(s): M47.816 - Spondylosis without myelopathy or radiculopathy, lumbar region Category: Medical Plan EMG reviewed, results as per above MRI pending. Initially denied by insurance. Appeal has been sent. Order placed for PT eval and treat Will increase amitriptyline to 25 mg daily at bedtime All questions and concerns have been answered and patient agrees with the plan. Follow up after MRI/PT, sooner if needed Orders: Orders PT Evaluation and Treatment Today G57.30 - Lesion of lateral popliteal nerve, unspecified lower limb, M47.816 - Spondylosis without myelopathy or radiculopathy, lumbar region Medications: Changed From amitriptyline 10 mg PO BEDTIME 90 tabs 1RF To amitriptyline 25 mg PO BEDTIME 30 tabs 3RF Coding Level of Care Code Est Pt Level 3 (86123) Complex EM visit Add On G2211 Diagnoses Peroneal neuropathy G57.30 Lumbar spondylosis M47.816 Lumbar radiculopathy M54.16 Facet arthritis of lumbar region M47.816
[2024-01-27 11:32] VITALS: BP 144/80; PULSE 69; O2SAT 98; BMI 26.5
== END 2024-01-27 12:01 | disposition home or self-care (01) ==
PROVIDERS: PCP Internal Medicine; Visit Provider Registered Nurse Emergency
DX: G57.30 Lesion of lateral popliteal nerve, unspecified lower limb (principal); M47.816 Spondylosis without myelopathy or radiculopathy, lumbar region
CPT/HCPCS: 99213; G2211

== ENCOUNTER → 2024-01-27 11:02 | Outpatient (BNVA) | payer OTHER, SELFPAY | PROVIDERS: PCP Internal Medicine; Visit Provider Registered Nurse Emergency | DX: M47.816 Spondylosis without myelopathy or radiculopathy, lumbar region (principal); M54.16 Radiculopathy, lumbar region; G57.30 Lesion of lateral popliteal nerve, unspecified lower limb | CPT/HCPCS: 99212 ==

== ENCOUNTER 2024-02-09 13:56 | Outpatient (AMB) | payer OTHER, SELFPAY ==
--- NOTE | 2024-02-09 14:53 | A.OFFVIS_ITS ---
Vital Signs 02/09/24 14:55 Height 5 ft 8 in Weight 174 lb BMI 26.5 BP 114/76 Intake Visit Reasons: CERTIFIED PROSTHETIST annual exam Digital Controls Technical Officer Required: No Digital Controls Technical Officer Services: Digital Controls Technical Officer Offered & Declined Marine Oiler: Marine Oiler Present (Rajani) Allergies naproxen [From Aleve] Allergy (Mild, Verified 02/09/24 14:55) Unknown HPI Comments Details: She is a postmenopausal woman presenting for her annual fish technologist examination. She is doing well with no concerns. Admits to trying a progesterone cream from the Internet to help with hot flashes. Currently sexually active. Admits to vaginal dryness uses a lubricant. STI testing offered; she accepts including blood work. Attempting to eat a healthy diet with calcium and vitamin D and stays active with exercise-yoga. Last pap smear; 2022. Last mammogram; 2023. Colonoscopy is not UTD. Denies any family history of breast, ovarian or colon cancer. [facility] Medical History Well woman exam Anxiety, generalized Depression, major, recurrent Herpes labialis Atopic dermatitis Hx of rosacea Hx of cold sores Surgical History Hx of cholecystectomy Tubal ligation status Hx of appendectomy Family History Mother Family hx of hypertension Family history of Alzheimer's disease Father No problems noted. Brother No problems noted. Brother No problems noted. Brother No problems noted. Brother No problems noted. Social History Household Members: Spouse Housing: House Alcohol intake: current Alcohol intake frequency: holidays/special occasions only Patient Tobacco Use Status: Never used Tobacco e-Cigarette/Vaping Use: Never Used service: No Current occupational status: employed Current occupation: [employer] Sexual orientation: Straight/Heterosexual Gender identity: Female Cognitive needs: No Hearing needs: No Vision needs: No Female Reproductive History Menstrual Age of Menarche: 14 control method: permanent sterilization Permanent Sterilization: BTL Total pregnancies: 3 Full term: 3 Number of Living Children: 3 Date of last pap smear: 02/02/23 (neg pap and hpv) History of abnormal pap smear: Yes (01/09 +hpv) Date of Mammogram: 04/17/23 (Birad 2) Review of Systems Const All systems reviewed & are unremarkable except as noted in HPI and below Reports as per HPI Eyes Reports no additional complaints ENT Reports no additional complaints Card Reports no additional complaints Resp Reports no additional complaints GI Reports as per HPI and Reports no additional complaints Reports as per HPI Musc Reports no additional complaints Skin/Breast Reports as per HPI Neuro Reports no additional complaints Psych Reports no additional complaints Endo Reports no additional complaints Chuck/Lymph Reports no additional complaints Aller/Immun Reports no additional complaints Physical Exam Vital Signs: Last Vital Signs BP 114/76 02/09/24 14:55 BMI result Body Mass Index 26.5 Const General: cooperative, healthy appearing, no acute distress, well developed and alert Orientation/consciousness: patient oriented x3 HEENT Head: Yes normal to inspection Eyes General: appearance normal, both eyes and all related structures Neck Neck: Yes normal visual inspection Thyroid: Thyroid normal Chest Chest palpation & inspection: normal inspection of the chest and other (no puckering, dimpling, peau de orange, retraction, discharge, masses) Breast/axilla inspection: normal inspection of the breasts Breast/axilla palpation: normal palpation of the breasts Resp Effort & Inspection: normal respiratory effort GI Inspection: Yes normal to inspection Palpation (GI): Soft to palpation Rectal Exam - Female: deferred General: Yes bladder normal to palpation External Female Exam: normal external appearance and normal appearance of the urethra Speculum Exam - Vagina: normal appearance of the vagina, normal palpation, normal vaginal discharge and vagina atrophic (Moderate with petechiae) Speculum Exam - Cervix: normal appearance of the cervix and normal palpation Bimanual exam- vagina & uterus: normal bimanual exam, normal palpation, uterine size normal, bladder normal to palpation, normal palpation and non-tender Bimanual Exam- Adnexa, other: no masses Skin General skin exam: no rashes or lesions noted Rashes: no rashes Neuro General: patient oriented x3 Cognition (Neuro): normal cognition Extrem General: Yes normal to inspection Psych Attitude: cooperative Thought process: Normal thought process present Assessment & Plan Assessment & Plan (1) Well woman exam with routine gynecological exam: Code(s): Z01.419 - Encounter for gynecological examination (general) (routine) without abnormal findings Category: Medical Plan Discussed: Current recommendations for pap smears per ASCCP guidelines. Breast awareness, periodic self breast exams and yearly mammogram. Maintain a healthy lifestyle, well balanced diet including Calcium 1,200 mg and Vitamin D 600 IU daily, and routine exercise. Vaginal atrophy, treatment options including Replens moisturizer, lubricants and in vaginal estrogen. She will consider using the Replens trial and follow up if needed. Efficacy of [id number] products, quality concerns. Contact the office with any postmenopausal bleeding. Patient verbalizes understanding and agrees to the plan of care. She was given opportunity to ask questions and all questions were answered to the best of my ability. RTO in 1 year for annual fish technologist exam. This note is constructed using voice recognition software. While every effort has been made to ensure accuracy, cad programmer errors may have been included. Orders: Orders HIV Ab/Ag Today Z20.2 - Contact with and (suspected) exposure to infections with a predominantly sexual mode of transmission Hepatitis C Antibody Reflex Today Z20.2 - Contact with and (suspected) exposure to infections with a predominantly sexual mode of transmission Syphilis Screen Today Z20.2 - Contact with and (suspected) exposure to infections with a predominantly sexual mode of transmission CT NG by PCR Today Z20.2 - Contact with and (suspected) exposure to infections with a predominantly sexual mode of transmission Hepatitis B Core Antibody Today Z20.2 - Contact with and (suspected) exposure to infections with a predominantly sexual mode of transmission Bacterial Vaginosis Panel Today Z20.2 - Contact with and (suspected) exposure to infections with a predominantly sexual mode of transmission Coding Level of Care Code Est Pt Prev Care 40-64y(75401) Diagnoses Well woman exam with routine gynecological exam Z01.419
[2024-02-09 14:55] VITALS: BP 114/76; BMI 26.5
== END 2024-02-09 15:41 | disposition home or self-care (01) ==
LOC: HO.HWS 13:56
PROVIDERS: PCP Internal Medicine; Visit Provider Advanced Practice Midwife
DX: Z01.419 Encounter for gynecological examination (general) (routine) without abnormal findings (principal)
CPT/HCPCS: 99396

== ENCOUNTER 2024-02-09 13:56 | Outpatient (REF) | payer OTHER, SELFPAY | END 2024-02-09 13:57 | disposition home or self-care (01) | LOC: HO.LNP 13:56 | PROVIDERS: PCP Internal Medicine; Visit Provider Advanced Practice Midwife | DX: Z01.419 Encounter for gynecological examination (general) (routine) without abnormal findings (principal) | CPT/HCPCS: 99396; 99459 ==

== ENCOUNTER 2024-02-09 15:36 | Outpatient (REF) | payer OTHER, SELFPAY ==
[2024-02-09 18:16] LABS: Bacterial Vaginosis PCR NEGATIVE (Negative); Candida Group PCR NOT DETECTED (Not Detect); Candida glab krusei PCR NOT DETECTED (Not Detect); Trichomonas vaginalis PCR NOT DETECTED (Not Detect)
[2024-02-10 12:04] LABS: CT PCR NOT DETECTED (Not Detect.); NG PCR NOT DETECTED (Not Detect.)
== END 2024-02-09 15:37 | disposition home or self-care (01) ==
LOC: HO.LAB 15:36
PROVIDERS: Visit Provider Advanced Practice Midwife
DX: Z20.2 Contact with and (suspected) exposure to infections with a predominantly sexual mode of transmission (principal)
CPT/HCPCS: 0352U; 87491; 87591

== ENCOUNTER 2024-02-11 09:32 | Outpatient (REF) | payer OTHER, SELFPAY ==
[2024-02-11 13:39] LABS: MANUAL DIFF FLAG NO
[2024-02-11 13:45] LABS: Basophils Percent Auto 0.6 % (0-2); Eosinophils Absolute Auto 0.1 X10*3/uL (0.0-0.4); Hematocrit 44.1 % (37.0-47.0); Hemoglobin 13.9 g/dl (12.0-16.0); Imm Gran Abs Auto 0.02 X10*3/uL (0.00-0.03); Imm Gran Pct Auto 0.4 % (0.0-0.4); Lymphocytes Absolute Auto 1.5 X10*3/uL (1.2-4.9); Lymphocytes Percent Auto 29.7 % (20-40); Mean Corpuscular HGB Conc 31.5 g/dl (31.0-35.0); Mean Corpuscular Hemoglobin 25.3 pg (27.0-33.0); Mean Corpuscular Volume 80.2 fL (80.0-98.0); Mean Platelet Volume 11.3 fL (9.4-12.3); Monocytes Absolute Auto 0.3 X10*3/uL (0.1-1.2); Monocytes Percent Auto 6.8 % (2-11); Neutrophils Percent Auto 60.5 % (45-73); Platelet Count 276 X10*3/uL (160-400); Red Cell Distribution Width 13.2 % (11.0-16.0)
[2024-02-11 13:49] LABS: Estimated Average Glucose 123 mg/dL; Hemoglobin A1C 144.4192 umol/L; Hemoglobin A1c % 5.9 % (<6.0); Total Hemoglobin (HGBA1C) 3566.8084 umol/L
[2024-02-11 14:04] LABS: Alanine Aminotransferase 68 U/L (0-31); Albumin Level 4.6 g/dL (3.5-5.0); Alkaline Phosphatase 74 U/L (39-117); Anion Gap 9 (12-20); Aspartate Amino Transferase 39 U/L (5-31); Bilirubin Total 0.5 mg/dL (0.0-1.0); Blood Urea Nitrogen 18 mg/dL (9-16); Calcium 9.9 mg/dL (8.4-10.2); Carbon Dioxide 30 mmol/L (22-29); Chloride 105 mmol/L (96-108); Cholesterol 207 mg/dL (<200); Estimated Glomerular Filt Rate > 60; Glucose Fasting 97 mg/dL (60-99); HDL Cholesterol 45 mg/dL (>40); LDL Cholesterol Calculated 125 mg/dL (<100); Potassium 4.3 mmol/L (3.3-5.1); Sodium 140 mmol/L (135-145); Total Protein 7.4 g/dL (6.5-8.0); Triglycerides 188 mg/dL (<150)
[2024-02-11 14:14] LABS: Syphilis Screen Nonreactive (Nonreactive)
[2024-02-11 14:20] LABS: TSH reflex Free T4 1.05 uIU/mL (0.32-4.0)
[2024-02-11 14:21] LABS: HBc Num1 0.18 S/CO (0.00-0.79); HIV AB/AG Nonreactive (Nonreactive); HIV Num 1 0.05 S/CO (0.00-0.99); Hepatitis B Core Antibody Nonreactive (Nonreactive); ~HepC Num1 0.11 S/CO (0.00-0.79); ~Hepatitis C Antibody Nonreactive (Nonreactive)
== END 2024-02-11 09:33 | disposition home or self-care (01) ==
LOC: HO.HMGCLDS 09:32
PROVIDERS: PCP Internal Medicine; Referring Provider Advanced Practice Midwife; Visit Provider Internal Medicine
DX: Z00.01 Encounter for general adult medical examination with abnormal findings (principal); S43.401A Unspecified sprain of right shoulder joint, initial encounter; L20.84 Intrinsic (allergic) eczema; F33.42 Major depressive disorder, recurrent, in full remission; F41.1 Generalized anxiety disorder; G43.909 Migraine, unspecified, not intractable, without status migrainosus; R79.89 Other specified abnormal findings of blood chemistry; R73.01 Impaired fasting glucose; G47.9 Sleep disorder, unspecified; M25.511 Pain in right shoulder; G89.29 Other chronic pain; Z20.2 Contact with and (suspected) exposure to infections with a predominantly sexual mode of transmission
CPT/HCPCS: 36415; 80053; 80061; 83036; 84443; 85025; 86704; 86780; 86803; 87389; 99212

== ENCOUNTER 2024-02-11 10:32 | Outpatient (AMB) | payer OTHER, SELFPAY ==
--- NOTE | 2024-02-11 10:52 | MHC.OFFWIV ---
Intake Vital Signs 02/11/24 10:55 Height 5 ft 8 in Weight 172 lb BMI 26.1 BP 110/70 Blood Pressure Location Rt brachial Position Sitting Pulse 66 Pulse Source Pulse Oximeter Pulse Oximetry (%) 98 Oxygen Delivery Method Room Air Intake Visit Reasons: EP pain on RT shoulder Intake Note: Patient here for right shoulder and arm pain that has been present for a while now and does have a ortho appt in February Patient Tobacco Use Status: Never used Tobacco Allergies naproxen [From Aleve] Allergy (Mild, Verified 02/11/24 10:56) Unknown Do you need a note to return to daycare/school/sports/work: No HPI HPI Comments History of Present Illness Details History of Present Illness The patient is a 58-year-old female presenting with persistent right shoulder pain. The pain has been ongoing for two months without any specific injury or event leading to its onset. The patient mentioned a possible incident where she might have injured it while in her basement, although this is not certain. The pain restricts her ability to lift her arm over her head and extends to her back, causing difficulty. The pain intensifies upon certain movements, such as mimicking the action of dumping out a can. Examination by palpation suggests tenderness in the area where the biceps muscle inserts and possibly related to cervical radiculopathy as the pain radiates partially from the cervical spine. The patient has primarily managed her pain with ibuprofen, taking 800 mg as needed but was advised not to use it daily due to potential renal side effects. She has also used an Icy Hot Patch for topical relief. An orthopedic consultation is scheduled for March 03 from her PCP. No prior imaging like an x-ray has been performed to evaluate the shoulder further. Physical Exam General: Cooperative, healthy appearing, comfortable, no acute distress and well developed Orientation: Patient oriented x3 Limitations: french speaking Head: Normal to inspection Ears: Hearing grossly normal bilaterally Nose: Normal external nose present Face and sinus: Normal facial exam Eyes: Appearance normal, both eyes and all related structures Neck: Normal visual inspection and Yes full ROM Respiratory: Normal respiratory effort and able to speak in complete sentences. Skin: No rashes or lesions noted Neuro: Patient oriented x3 Extremities: as below [facility] Medical History Well woman exam Anxiety, generalized Depression, major, recurrent Herpes labialis Atopic dermatitis Hx of rosacea Hx of cold sores Surgical History Hx of cholecystectomy Tubal ligation status Hx of appendectomy Family History Mother Family hx of hypertension Family history of Alzheimer's disease Father No problems noted. Brother No problems noted. Brother No problems noted. Brother No problems noted. Brother No problems noted. Social History Household Members: Spouse Housing: House Alcohol intake: current Alcohol intake frequency: holidays/special occasions only Patient Tobacco Use Status: Never used Tobacco e-Cigarette/Vaping Use: Never Used service: No Current occupational status: employed Current occupation: [employer] Sexual orientation: Straight/Heterosexual Gender identity: Female Cognitive needs: No Hearing needs: No Vision needs: No Female Reproductive History Menstrual Age of Menarche: 14 Review of Systems Const All systems reviewed & are unremarkable except as noted in HPI and below Physical Exam Vital Signs: Last Vital Signs Pulse 66 02/11/24 10:55 BP 110/70 02/11/24 10:55 Pulse Ox 98 02/11/24 10:55 Oxygen Delivery Method Room Air 02/11/24 10:55 BMI result Body Mass Index 26.1 Back/Spine/Pelvis Cervical Spine: cervical ROM normal, No cervical muscular tenderness and No Cervical spine tenderness Extrem Right upper extremity: normal to inspection, shoulder/upper arm Details: normal to inspection, tenderness Location: of the proximal humerus and over the biceps tendon; not of the clavicle, not of the A-C joint, not of the scapula, not of the mid-shaft humerus, not over the coracoid process, not over the subacromial bursa and not over the deltoid bursa and abnormal ROM Details: pain with active ROM Details: in flexion (pain at 90 degrees) and in internal rotation (pain with lift off); but not in ABduction (neg empty can) and but not in extension; no lacerations, no ecchymosis, no deformity and no unusual warmth and elbow/forearm Details: normal to inspection and normal ROM; no tenderness Assessment & Plan Assessment & Plan (1) Sprain of right shoulder: Code(s): S43.401A - Unspecified sprain of right shoulder joint, initial encounter Qualifiers: Encounter type: initial encounter Shoulder sprain type: unspecified sprain Qualified Code(s): S43.401A - Unspecified sprain of right shoulder joint, initial encounter Plan: Plan - Recommend use of Voltaren gel for daily pain management. - Advise resting the right shoulder using a sling for 3-4 days to reduce strain, excluding sleep times to prevent risks of shoulder immobility. Then use as needed. - Encourage use of ibuprofen 600 mg three 200 mg [id number] tablets as needed for acute pain, limiting daily use to prevent renal complications. - Patient instructed to contact the orthopedic office periodically for potential earlier appointments due to any cancellations. - No indication for XR today. Likely will need further imaging if pain persists once she sees Orthopedics. - Follow up with orthopedics as scheduled on March 03 unless an earlier appointment becomes available. Patient was informed and verbally consented to the use of an ambient scribe for clinic note documentation during this visit. Coding Level of Care Code Est Pt Level 4 (82474) Diagnoses Sprain of right shoulder, unspecified shoulder sprain type, initial encounter S43.401A Encounter type: initial encounter Shoulder sprain type: unspecified sprain
[2024-02-11 10:55] VITALS: BP 110/70; PULSE 66; O2SAT 98; BMI 26.1
== END 2024-02-11 11:33 | disposition home or self-care (01) ==
PROVIDERS: PCP Internal Medicine; Visit Provider Physician Assistant
DX: S43.401A Unspecified sprain of right shoulder joint, initial encounter (principal)

== ENCOUNTER 2024-02-12 13:09 | Outpatient (AMB) | payer OTHER, SELFPAY ==
--- NOTE | 2024-02-12 13:35 | MHC.OFFVISPS ---
Intake Intake Visit Reasons: consultation Audio Visual Aids Director Required: Yes Allergies naproxen [From Aleve] Allergy (Mild, Verified 02/11/24 10:56) Unknown Medication List - Last Reconciled 02/12/24 by Mirian Sandoval APRN amitriptyline 25 mg PO BEDTIME cholecalciferol (vitamin D3) 25 mcg PO DAILY 90 days mometasone 0.1% 1 appl topical DAILY 30 days sertraline 50 mg PO DAILY 90 days valacyclovir (Valtrex) 500 mg PO BID HPI- Psychiatric Chief Complaint: consultation HPI Narrative: Pt is referred by her PCP for medication evaluation and optimazation; pt reports she ahs a therpaist at [facility] whom she sees weekly; she states her psychiatrist there recently left. She Assessment and Plan Counseling and coordination of Care Details: I spent [] minutes reviewing the record, seeing the patient and documenting in the medical record. Counseling provided to the patient/caregiver as outlined below. Addressed patient/caregiver concerns regarding current medication regime including effective adherence. Addressed patient/caregiver concerns regarding diagnosis and prognosis including accuracy of diagnosis, prognosis over time, impact of diagnosis. Addressed patient/caregiver concerns regarding impact of recent stressors. [facility] Medical History Well woman exam Anxiety, generalized Depression, major, recurrent Herpes labialis Atopic dermatitis Hx of rosacea Hx of cold sores Surgical History Hx of cholecystectomy Tubal ligation status Hx of appendectomy Family History Mother Family hx of hypertension Family history of Alzheimer's disease Father No problems noted. Brother No problems noted. Brother No problems noted. Brother No problems noted. Brother No problems noted. Social History Household Members: Spouse Housing: House Alcohol intake: current Alcohol intake frequency: holidays/special occasions only Patient Tobacco Use Status: Never used Tobacco e-Cigarette/Vaping Use: Never Used service: No Current occupational status: employed Current occupation: [employer] Sexual orientation: Straight/Heterosexual Gender identity: Female Cognitive needs: No Hearing needs: No Vision needs: No Coding
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
== END 2024-02-12 14:25 | disposition home or self-care (01) ==
LOC: HO.HOP 13:09
PROVIDERS: PCP Internal Medicine; Visit Provider Clinical Nurse Specialist Psychiatric/Mental Health
DX: F41.1 Generalized anxiety disorder (principal); F33.1 Major depressive disorder, recurrent, moderate; M79.7 Fibromyalgia
CPT/HCPCS: 90792

== ENCOUNTER → 2024-02-12 13:09 | Outpatient (BNVA) | payer OTHER, SELFPAY | PROVIDERS: PCP Internal Medicine; Visit Provider Clinical Nurse Specialist Psychiatric/Mental Health | DX: F41.1 Generalized anxiety disorder (principal); F33.1 Major depressive disorder, recurrent, moderate; M79.7 Fibromyalgia; Z71.3 Dietary counseling and surveillance | CPT/HCPCS: 90792 ==

== ENCOUNTER 2024-03-03 10:53 | Outpatient (REF) | payer OTHER, SELFPAY ==
--- NOTE | ~2024-03-03 | XR_ITS ---
EXAMINATION: XR SHOULDER 2 OR MORE VIEWS RIGHT HISTORY: M25.511 - Pain in right shoulder COMPARISON: There are no prior studies available for comparison. FINDINGS: Two views of the right shoulder are submitted. Osseous mineralization is normal. There is no fracture or dislocation. The joint spaces are preserved. There are soft tissue calcifications adjacent to the greater tuberosity of the humerus which are likely related to the rotator cuff. XR/XR shoulder RT min 2V IMPRESSION: Probable rotator cuff calcifications. Otherwise unremarkable examination of the right shoulder. Electronically signed by: Crow Beasley MD 03/08/2024 11:10 AM JOAQUIN
== END 2024-03-03 10:54 | disposition home or self-care (01) ==
LOC: HO.HOSX 10:53
PROVIDERS: Visit Provider Orthopaedic Surgery
DX: M25.511 Pain in right shoulder (principal); G89.29 Other chronic pain
CPT/HCPCS: 73030; 99202

== ENCOUNTER 2024-03-03 13:19 | Outpatient (AMB) | payer OTHER, SELFPAY ==
[2024-03-03 13:50] VITALS: BMI 26.1
--- NOTE | 2024-03-03 13:50 | MHC.OFFVIS ---
Vital Signs 03/03/24 13:50 Height 5 ft 8 in Weight 172 lb BMI 26.1 Intake Visit Reasons: Right shoulder pain and weakness Intake Note: Mandie is a 58 year old right hand dominant female who presents with complaints of progressively worsening right shoulder pain and weakness. The patient states that over the last year she has fallen several times onto her right side. The patient states that she has had difficulty lifting her right hand above shoulder height for the last 6 months. She has failed the last 6 weeks of conservative treatment which has included physical therapy, Tylenol and anti-inflammatory medicines. The patient was evaluated by her primary care doctor on 07/24/2023. Her gabapentin dose was increased at that time. The patient states that she has noticed minimal improvement in her pain and weakness since June. The patient has tried topical creams and ice which gave her minimal relief. Administrative Operations Coordinator Required: Yes Administrative Operations Coordinator Language: School Age Teacher Services: Administrative Operations Coordinator Present Administrative Operations Coordinator Name: SANDHYA Strickland/VIV Allergies naproxen [From Aleve] Allergy (Mild, Verified 03/03/24 13:51) Unknown Medication List - Last Reconciled 03/03/24 by Michael Esqueda MD amitriptyline 25 mg PO BEDTIME cholecalciferol (vitamin D3) 25 mcg PO DAILY 90 days duloxetine (Cymbalta) 20 mg PO DAILY mometasone 0.1% 1 appl topical DAILY 30 days valacyclovir (Valtrex) 500 mg PO BID PFSH Medical History Well woman exam Anxiety, generalized Depression, major, recurrent Herpes labialis Atopic dermatitis Hx of rosacea Hx of cold sores Surgical History Hx of cholecystectomy Tubal ligation status Hx of appendectomy Family History Mother Family hx of hypertension Family history of Alzheimer's disease Father No problems noted. Brother No problems noted. Brother No problems noted. Brother No problems noted. Brother No problems noted. Social History (Updated 03/03/24 @ 13:58 by SANDHYA Colvin) Household Members: Spouse Housing: House Alcohol intake: current Alcohol intake frequency: holidays/special occasions only Patient Tobacco Use Status: Never used Tobacco e-Cigarette/Vaping Use: Never Used service: No Current occupational status: employed and unemployed Current occupation: [employer] Sexual orientation: Straight/Heterosexual Gender identity: Female Cognitive needs: No Hearing needs: No Vision needs: No Female Reproductive History Menstrual Age of Menarche: 14 Physical Exam Vital Signs: BMI result Body Mass Index 26.1 Const Other: Well-nourished well-developed very friendly female awake alert and oriented x3 in no acute distress Extrem Other: Bilateral upper extremity examination shows good capillary refill, no skin lesions noted, normal sensation light touch Right shoulder examination shows decreased range of motion when compared to her left shoulder, 4/5 strength with supraspinatus testing, positive impingement signs, no instability Results Reviewed Results Reviewed: X-rays of the patient's right shoulder show severe acromioclavicular joint narrowing, a type 2 acromion, no acute bony abnormalities Assessment & Plan Assessment & Plan (1) Rotator cuff insufficiency of right shoulder: Code(s): M25.311 - Other instability, right shoulder Category: Medical Plan Ms. Giron presents with progressively worsening right shoulder pain and limited range of motion most likely due to rotator cuff tearing. Thus, I will send the patient for an MRI of her right shoulder for further evaluation. I will see her back once the MRI is completed to discuss the findings and treatment options. She will continue with her [id number] exercises in the meantime. Feel free to call me at any time should questions regarding her orthopedic management arise. Thank you very much for asking me to see this very friendly patient. I spent 20 minutes in reviewing the patient's records and imaging studies, seeing the patient and documenting in the medical record. Orders: Orders XR shoulder RT min 2V Today G89.29 - Other chronic pain, M25.511 - Pain in right shoulder MR shoulder RT wo con Today M25.311 - Other instability, right shoulder Coding Level of Care Code New Pt Level 3 (21992) Complex EM visit Add On G2211 Diagnoses Rotator cuff insufficiency of right shoulder M25.311
== END 2024-03-03 14:08 | disposition home or self-care (01) ==
PROVIDERS: PCP Internal Medicine; Visit Provider Orthopaedic Surgery
DX: M25.311 Other instability, right shoulder (principal)
CPT/HCPCS: 99203; G2211

== ENCOUNTER 2024-03-08 12:18 | Outpatient (AMB) | payer OTHER, SELFPAY ==
--- NOTE | 2024-03-08 12:39 | AM.OFFWIN_ITS ---
Intake Vital Signs 03/08/24 12:40 Height 5 ft 8 in Weight 173 lb BMI 26.3 BP 104/68 Blood Pressure Location Lt brachial Position Sitting Pulse 90 Pulse Source Pulse Oximeter Pulse Oximetry (%) 98 Oxygen Delivery Method Room Air Intake Visit Reasons: EP Lumbar pain Intake Note: Pt is here today for a walk in visit. Pt c/o R lower back pain that goes down her R hip since Thursday. Patient Tobacco Use Status: Never used Tobacco Allergies No Known Allergies Allergy (Verified 03/08/24 13:24) HPI HPI Comments History of Present Illness Details History of Present Illness - The patient is a 58-year-old female pr esenting with acute on chronic back pain. - The patient's acute pain started four days ago, located mainly in the lower back with slight extension towards the left leg. - The pain is focal, lacks a sharp shoot ing nature, and has not worsened significantly with movement. - Historical falls were noted without cu rrent injury resulting directly from them. - The patient reported daily numbness an d coldness in the left foot and has prior history of disc concerns. - Previous medications used include Gaudencio riptyline and Duloxetine and Naproxen, - Multiple specialists are involved in t he patient?s care, including pending neurology consultation and physical therapy. - Insurance barriers blocked MRI approva l twice, pointing towards physical therapy initially. - The patient self-reports ongoing coord ination of care for unresolved back pain symptoms. Physical Exam General: Cooperative, healthy appearing, comfortable, no acute distress and well developed Orientation: Patient oriented x3 Limitations: No limitations Head: Normal to inspection Ears: Hearing grossly normal bilaterally Nose: Normal external nose present Face and sinus: Normal facial exam Eyes: Appearance normal, both eyes and all related structures Neck: Normal visual inspection and Yes full ROM Respiratory: Normal respiratory effort and able to speak in complete sentences. Skin: No rashes or lesions noted Neuro: Patient oriented x3 Extremities: Normal to inspection [facility] Medical History Well woman exam Anxiety, generalized Depression, major, recurrent Herpes labialis Atopic dermatitis Hx of rosacea Hx of cold sores Surgical History Hx of cholecystectomy Tubal ligation status Hx of appendectomy Family History Mother Family hx of hypertension Family history of Alzheimer's disease Father No problems noted. Brother No problems noted. Brother No problems noted. Brother No problems noted. Brother No problems noted. Social History (Updated 03/03/24 @ 13:58 by SANDHYA Colvin) Household Members: Spouse Housing: House Alcohol intake: current Alcohol intake frequency: holidays/special occasions only Patient Tobacco Use Status: Never used Tobacco e-Cigarette/Vaping Use: Never Used service: No Current occupational status: employed and unemployed Current occupation: rt handed Sexual orientation: Straight/Heterosexual Gender identity: Female Cognitive needs: No Hearing needs: No Vision needs: No Female Reproductive History Menstrual Age of Menarche: 14 Review of Systems Const All systems reviewed & are unremarkable except as noted in HPI and below Physical Exam Vital Signs: Last Vital Signs Pulse 90 03/08/24 12:40 BP 104/68 03/08/24 12:40 Pulse Ox 98 03/08/24 12:40 Oxygen Delivery Method Room Air 03/08/24 12:40 BMI result Body Mass Index 26.3 Back/Spine/Pelvis Cervical Spine: cervical ROM normal and No Cervical spine tenderness Thoracic/Lumbar Spine: pain with thoraco-lumbar ROM, paraspinal muscle tenderness bilaterally in the upper lumbar, in the mid lumbar and in the lower lumbar, No thoraco-lumbar spasm, No thoracic spinal tenderness and No lumbar spinal tenderness Pelvis: buttock tenderness (upper) bilaterally and no buttock swelling Assessment & Plan Assessment & Plan (1) Lumbar radiculopathy: Code(s): M54.16 - Radiculopathy, lumbar region Plan: The main diagnosis remains back pain, recommended pt continue to pursue MRI once physical therapy is complete, pending prior authorization. Naproxen will be retrialed considering the query surrounding historical allergy as pt states she has taken it before with no issues. Patient instructed to administer Naproxen bi-daily over a temporary three-day course for anti-inflammatory action then use as needed. Continued follow-up appointments with pain management and neurology remain essential in the multi-disciplinary approach. Amitriptyline continues to serve in ameliorating symptom burden alongside the monitoring of Duloxetine's psychotropic utility. The plan underscores the necessity of persistent physical therapy, neurological evaluations, and refining pain management protocols as needed. Encouraged pt to pursue these avenues as well as keep her PCP appt in 2 days. Patient was informed and verbally consented to the use of an ambient scribe for clinic note documentation during this visit. (2) Lumbar spondylosis: Code(s): M47.816 - Spondylosis without myelopathy or radiculopathy, lumbar region Plan: as above Medications: New naproxen 500 mg PO Q12H PRN 20 tabs 0RF pain Coding Level of Care Code Est Pt Level 4 (37732) Diagnoses Lumbar radiculopathy M54.16 Lumbar spondylosis M47.816
[2024-03-08 12:40] VITALS: BP 104/68; PULSE 90; O2SAT 98; BMI 26.3
== END 2024-03-08 13:55 | disposition home or self-care (01) ==
PROVIDERS: PCP Internal Medicine; Visit Provider Physician Assistant
DX: M54.16 Radiculopathy, lumbar region (principal); M47.816 Spondylosis without myelopathy or radiculopathy, lumbar region

== ENCOUNTER → 2024-03-08 12:18 | Outpatient (BNVA) | payer OTHER, SELFPAY | PROVIDERS: PCP Internal Medicine; Visit Provider Internal Medicine | DX: M54.16 Radiculopathy, lumbar region (principal); M47.816 Spondylosis without myelopathy or radiculopathy, lumbar region | CPT/HCPCS: 99212 ==

== ENCOUNTER 2024-03-10 08:24 | Outpatient (AMB) | payer OTHER, SELFPAY ==
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
== END 2024-03-10 09:06 | disposition home or self-care (01) ==
LOC: HO.HMCC 08:24
PROVIDERS: PCP Internal Medicine; Visit Provider Internal Medicine
DX: R79.89 Other specified abnormal findings of blood chemistry (principal)

== ENCOUNTER → 2024-03-10 08:24 | Outpatient (BNVA) | payer OTHER, SELFPAY | PROVIDERS: PCP Internal Medicine; Visit Provider Internal Medicine | DX: R79.89 Other specified abnormal findings of blood chemistry (principal) | CPT/HCPCS: 96127 ==

== ENCOUNTER 2024-03-11 09:13 | Outpatient (AMB) | payer OTHER, SELFPAY ==
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
== END 2024-03-11 09:33 | disposition home or self-care (01) ==
LOC: HO.HOP 09:13
PROVIDERS: PCP Internal Medicine; Visit Provider Clinical Nurse Specialist Psychiatric/Mental Health
DX: F33.1 Major depressive disorder, recurrent, moderate (principal); F41.1 Generalized anxiety disorder; M79.7 Fibromyalgia
CPT/HCPCS: 99215

== ENCOUNTER → 2024-03-11 09:13 | Outpatient (BNVA) | payer OTHER, SELFPAY | PROVIDERS: PCP Internal Medicine; Visit Provider Clinical Nurse Specialist Psychiatric/Mental Health | DX: M79.7 Fibromyalgia (principal); F33.1 Major depressive disorder, recurrent, moderate; F41.1 Generalized anxiety disorder | CPT/HCPCS: 99212 ==

== ENCOUNTER 2024-03-26 13:51 | Outpatient (REF) | payer OTHER, SELFPAY ==
--- NOTE | ~2024-03-26 | MR_ITS ---
CLINICAL HISTORY: M25.311 - Other instability, right shoulder MR right shoulder without gadolinium Comparison: DX/SR - XR SHOULDER RT MIN 2V - 03/03/24 13:23 EST Findings: No marrow signal changes of occult fracture, contusion or osteonecrosis. Reactive appearing marrow edema at the greater tuberosity with mild cystic change. Acute effusion and synovitis of the subdeltoid subacromial bursa. Minor arthrosis of the AC joint with type 1 acromion. No anterolateral downsloping or inferior projecting osteophytes. Intact coracoacromial ligament. Articular surface and intrasubstance partial tear of the supraspinatus tendon from distal enthesis to myotendinous junction. Tear involving approximately 50% of the cross-sectional tendon diameter without complete/retracted tear. Mild bursal surface fraying of the supraspinatus. Small 4 mm low signal focus within the anterior fibers of the distal insertion compatible with calcific peritendinitis. Mild articular and bursal surface fraying of the distal insertion of the infraspinatus. Intact teres minor and subscapularis tendons. Normal cuff muscles. Degenerative signal changes in the superior labrum. Degenerative tear with mucoid degeneration and small intralabral cyst in the mid posterior labrum at approximately 5 x 3 mm. Tear of the anterior inferior labrum with a lobulated 9 x 7 x 9 mm paralabral cyst. Intact tendon of the long head of the biceps. Mild chondrosis glenohumeral joint. Suprascapular, spinoglenoid notch, quadrilateral space regions are unremarkable. Subcentimeter short axis axillary lymph nodes, nonspecific. Larger nodes present although with large fatty tova supporting reactive nodes. No fatty tova within the smaller nodes however still based on short axis measurement reactive nodes favored. Correlation for any palpable adenopathy. Impression: Effusion and synovitis of the subdeltoid subacromial bursa. Moderate thickness articular surface and intrasubstance tear of the supraspinatus tendon from distal enthesis to myotendinous junction. No complete or retracted tear. Additional bursal surface fraying. Mild bursal and articular surface fraying of the infraspinatus tendon. Normal cuff muscles. Degenerative labral tear most pronounced anterior inferior labrum with paralabral cysts as detailed. Mildly prominent axillary lymph nodes although most compatible with reactive nodes. Correlation for any palpable adenopathy. This document has been electronically signed by: Ap Cotter MD on 03/28/2024 09:40:44
--- OUTSIDE RECORDS SUMMARY | 2024-03-26 13:54 | XMS_ITS | Clinical Summary ---
Author Organization [facility] Address [address] [place] [address] Care Team Providers Care Supervisor Metal Placing Name Role Phone Rob Graham MD Primary Care Provider Surgical History Surgery Date Site/Laterality Comments CHOLECYSTECTOMY PROCEDURE: HISTORICAL CHOLECYSTECTOMY TUBAL LIGATION PROCEDURE: HISTORICAL TUBAL LIGATION OTHER SURGICAL HISTORY 06/2017 PROCEDURE: ---- OTHER ----; COMMENT: left breast biopsy: benign cyst APPENDECTOMY PROCEDURE: HISTORICAL APPENDECTOMY Medical History Medical History Date Comments Acne rosacea 07/05/2018 DX:Acne rosacea GERD (gastroesophageal reflu x disease) 07/05/2018 DX:GERD (gastroesophageal re flux disease) Family History Medical History Relation Name Comments No Known Problems Brother 1 No Known Problems Brother 2 No Known Problems Brother 3 Other: heart disease Brother 4 Alzheimer's disease Maternal Grandmother Alzheimer's disease Mother Diabetes Paternal Grandmother Relation Name Status Comments Brother 1 Alive Brother 2 Alive Brother 3 Alive Brother 4 Alive Daughter 1 Alive Daughter 2 Alive Maternal Grandmother Mother Paternal Grandmother Son Alive Social History Tobacco Use Types Packs/Day Years Used Date Smoking Tobacco: Never Smokeless Tobacco: Never Alcohol Use Standard Drinks/Week Comments Yes 0 (1 standard drink = 0.6 oz pur e alcohol) Sex and Gender Information Value Date Recorded Sex Assigned at Not on file Gender Identity Not on file Sexual Orientation Not on file Obstetrics History Plan of Treatment Health Maintenance Due Date Last Done Comments Hepatitis B Vaccines (1 of 3 - 19+ 3-dose series) 1985 Cervical Cancer Screening: P ap Smear 12/09/1987 Zoster Vaccines (1 of 2) 2016 Breast Cancer Screening 05/04/2020 05/04/2018 Colorectal Cancer Screening: Colonoscopy 01/26/2022 Depression Screening 01/26/2022 HIV Screening 01/26/2022 Hepatitis C Screening 01/26/2022 Social Influencers of Health Screening 01/26/2022 COVID-19 Vaccine (1 - 2023-2 5 season) 2023 Influenza Vaccine (#1) 2023 DTaP,Tdap,and Td Vaccines (2 - Td or Tdap) 04/05/2028 04/05/2018 HIB Vaccines Aged Out No longer eligi ble based on patient's age to complete this topic HPV Vaccines Aged Out No longer eligi ble based on patient's age to complete this topic Hepatitis A Vaccines Aged Out No long er eligible based on patient's age to complete this topic IPV Vaccines Aged Out No longer eligi ble based on patient's age to complete this topic MMR Vaccines Aged Out No longer eligi ble based on patient's age to complete this topic Meningococcal ACWY Vaccine Aged Out N o longer eligible based on patient's age to complete this topic Pneumococcal Vaccine: Pediat rics (0 to 5 Years) and At-Risk Patients (6 to 64 Years) Aged Out No longer eligi ble based on patient's age to complete this topic RSV Immunization Patients Un meg 20 months Aged Out No longer eligible b ased on patient's age to complete this topic Varicella Vaccines Aged Out No longer eligible based on patient's age to complete this topic Procedures Procedure Name Priority Date/Time Associated Diagnosis Comments [facility] SCREENING DIGITAL Routine 05/04/2018 8:59 AM EDT Encounter for screening mammogram for malignant neoplasm of breast from Last 3 Months or Most Recently Relevant to Health Maintenance Results * [facility] SCREENING DIGITAL (05/04/2018 8:59 AM EDT) Anatomical Region Laterality Modality Mammography 05/03/2018 8:51 AM EDT Narrative 05/04/2018 8:59 AM EDT [facility] Diagnostic Imaging Department [address] [place], [place] [id number] Patient: ??GIRON,MANDIE ?/Age/Sex: 1965 - 52 - F Unit#: ??[id number] ? Location/Status: ??SPDIMAM/REG CLI ? Mnemonic/Ordering Site: ??DIGSC/SPMAM Ordering Physician: ??ROB GRAHAM MD Huy Screening Digital - 05/03/18 - 919 INDICATION: SCREENING COMPARISON: Outside exams of ??07/09/2017, 07/01/2017 FINDINGS: CC and MLO views of the breasts were obtained, using full field digital mammography with 3D tomosynthesis views in the MLO projection. Computer aided detection with the [employer] 7.2-Jinn was employed. Patient reports benign ultrasound guided left breast biopsy in 2018 at [facility] FINDINGS: The breasts contain heterogeneously dense tissues, which may lower sensitivity of mammography in this patient. No suspicious masses, suspicious microcalcifications, or areas of architectural distortion are identified. ??Scattered benign appearing breast calcifications are present bilaterally. There are no secondary signs of breast malignancy. Compared to the prior exam, no adverse interval change. IMPRESSION: ??No specific mammographic evidence of breast malignancy. Lack of an imaging correlate should not deter or delay biopsy of a clinically significant palpable finding. BI-RADS ??- Category 2 - Benign finding 3342F, 7025F Annual screening mammography is recommended. Patient entered into a reminder system with a target date for the next mammogram. (G0202 / [id number]) , ??[id number] Dictating Physician: ??LOGAN NIEVES MD Electronically Signed by: ??LOGAN NIEVES MD Dic Date/Time: ??05/04/18 0855 Sign date/Time: ??05/04/18 0859 Procedure Note Logan Nieves MD - 02/12/2022 [facility] Diagnostic Imaging Department [address] [place] [id number] Patient: MANDIE GIRON /Age/Sex: 1965 - 52 - F Unit#: [id number] Location/Status: SPDIMAM/REG CLI Mnemonic/Ordering Site: [facility] Ordering Physician: ROB GRAHAM MD Huy Screening Digital - 05/03/18919 INDICATION: SCREENING COMPARISON: Outside exams of 07/09/2017, 07/01/2017 FINDINGS: CC and MLO views of the breasts were obtained, using full field digital mammography with 3D tomosynthesis views in the MLO projection. Computer aided detection with the [employer] 7.2-H was employed. [facility]: The breasts contain heterogeneously dense tissues, which may lowersensitivity of mammography in this patient. No suspicious masses, suspicious microcalcifications, or areas ofarchitectural distortion are identified. Scattered benign appearing breastcalcifications are present bilaterally. There are no secondary signs of breast malignancy. Compared to the prior exam, no adverse interval change. IMPRESSION: No specific mammographic evidence of breast malignancy. Lack of an imaging correlate should not deter or delay biopsy of aclinically significant palpable finding. BI-RADS - Category 2 - Benign finding 3342F, 7025F Annual screening mammography is recommended. Patient entered into a reminder system with a target date for the next mammogram. (G0202 / [id number]) , [id number] Dictating Physician: LOGAN NIEVES MD Electronically Signed by: LOGAN NIEVES MD Dic Date/Time: 05/04/1855 Sign date/Time: 05/04/1859 Rob Graham MD [facility] TIFFANIE from Last 3 Months or Most Recently Relevant to Health Maintenance Care Teams Supervisor Metal Placing Relationship Specialty Start Date End Date Rob Graham MD [address] [place] [address] PCP - General Internal Medicine 04/23/18
--- OUTSIDE RECORDS SUMMARY | 2024-03-26 13:54 | XMS_ITS | Clinical Summary ---
Author Organization [facility] Address [address] [place] [address] Care Team Providers Care Pantograph Operator Name Role Phone Unavailable Primary Care Provider Unavailabl e Source Comments PLEASE NOTE, if this patient is a minor, it may be UNLAWFUL to discuss sensitive information that is contained in these records (such as FAMILY PLANNING, MENTAL HEALTH or SUBSTANCE ABUSE) with the minor patient's parent or other person without the patient's specific authorization.[facility] Allergies No known active allergies Medications metroNIDAZOLE (METROCREAM) 0.75 % creamIndication s:Acne rosacea Apply topically 2 (two) times daily 45 g 1 9 Active Active Problems Problem Noted Date Diagnosed Date Acne rosacea 04/05/2018 Immunizations Name Administration Dates Next Due TDAP 04/05/2018 Family History Medical History Relation Name Comments Nervous System Disorders Maternal Grandmother Hypertension Mother Relation Name Status Comments Brother 4 brothers Father Alive Maternal Grandmother Mother Alive Sister 0 sister Social History Tobacco Use Types Packs/Day Years Used Date Smoking Tobacco: Never Smokeless Tobacco: Never Alcohol Use Standard Drinks/Week Comments No 0 (1 standard drink = 0.6 oz pur e alcohol) Social Connections Answer Date Recorded Social Connections and Isolation 0 10/18/2018 Financial Resource Strain Answer Date R ecorded Financial Resource Strain 0 2018 Stress Answer Date Recorded Stress 0 10/18/2018 Physical Activity Answer Date Recorded Physical Activity 0 10/18/2018 Food Insecurity Answer Date Recorded Food 0 10/18/2018 Transportation Needs Answer Date Record ed Transportation 0 10/18/2018 Housing Stability Answer Date Recorded Housing 0 10/18/2018 Safety and Environment Answer Date Segundo rded Safety 0 10/18/2018 Utilities Answer Date Recorded Utilities 0 10/18/2018 Employment Answer Date Recorded Employment 0 10/18/2018 Comments No Sex and Gender Information Value Date Recorded Sex Assigned at Female 04/05/2018 10:54 AM PST Legal Sex Female 10:09 AM PST Gender Identity Female 04/05/2018 10:54 AM PST Sexual Orientation Straight 04/05/2018 10 :54 AM PST 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 Not on file Not on file Last Filed Vital Signs Vital Sign Reading Time Taken Comments Blood Pressure 120/80 04/05/2018 1:50 PM EST Pulse 74 04/05/2018 1:50 PM EST Temperature 36.9 ??C (98.4 ??F) 04/05/2018 1:50 PM ES T Respiratory Rate 14 04/05/2018 1:50 PM EST Oxygen Saturation - - Inhaled Oxygen Concentration - - Weight 79.6 kg (175 lb 6.4 oz) 04/05/2018 1:50 P M EST Height 172.7 cm (5' 8 ) 04/05/2018 1:50 PM EST Body Mass Index 26.67 04/05/2018 1:50 PM EST Plan of Treatment Not on file Insurance [employer] Member Subscriber Plan / Payer (Ef fective 2018-Present) Name:Mandie Giron Relation to Subscriber:Self Name:Mandie Giron Payer ID:[id number] Type:Jamey Address: [facility] [address] [place] [address]
== END 2024-03-26 13:52 | disposition home or self-care (01) ==
LOC: HO.MRI 13:51
PROVIDERS: PCP Internal Medicine; Visit Provider Orthopaedic Surgery
DX: M25.311 Other instability, right shoulder (principal)
CPT/HCPCS: 73221

== ENCOUNTER → 2024-03-26 14:01 | Outpatient (BNV) | payer OTHER, SELFPAY | PROVIDERS: PCP Internal Medicine; Visit Provider Radiology Diagnostic Radiology | DX: M25.411 Effusion, right shoulder (principal); M75.51 Bursitis of right shoulder; M75.111 Incomplete rotator cuff tear or rupture of right shoulder, not specified as traumatic; M71.311 Other bursal cyst, right shoulder | CPT/HCPCS: 73221 ==

== ENCOUNTER 2024-03-29 08:37 | Outpatient (AMB) | payer OTHER, SELFPAY ==
--- OUTSIDE RECORDS SUMMARY | 2024-03-29 08:52 | XMS_ITS | Clinical Summary ---
Author Organization [facility] Address [address] [place] [address] Care Team Providers Care Cmo Name Role Phone Rob Graham MD Primary [...] Procedure Name Priority Date/Time Associated Diagnosis Comments [facility] SCREENING DIGITAL Routine 05/04/2018 8:59 AM EDT Encounter for screening mammogram for malignant neoplasm of breast from Last 3 Months or Most Recently Relevant to Health Maintenance Results * [facility] SCREENING DIGITAL (05/04/2018 8:59 AM EDT) Anatomical Region Laterality Modality Mammography 05/03/2018 8:51 AM EDT Narrative 05/04/2018 8:59 AM EDT [facility] Diagnostic Imaging Department [address] [place], [place] [id number] Patient: ??GIRON,MANDIE ?/Age/Sex: 1965 - 52 - F Unit#: ??[id number] ? Location/Status: ??SPDIMAM/REG CLI ? Mnemonic/Ordering Site: ??DIGSC/SPMAM Ordering Physician: ??ROB GRAHAM MD Huy Screening Digital - 05/03/18 - 919 INDICATION: SCREENING COMPARISON: Outside exams of ??07/09/2017, 07/01/2017 FINDINGS: CC and MLO views of the breasts were obtained, using full field digital mammography with 3D tomosynthesis views in the MLO projection. Computer aided detection with the [employer] 7.2-Arkeo was employed. Patient reports benign ultrasound guided left breast biopsy in 2018 at [facility] FINDINGS: The breasts contain heterogeneously dense [...] date for the next mammogram. (G0202 / [id number]) , ??[id number] Dictating Physician: ??LOGAN NIEVES MD Electronically Signed by: ??LOGAN NIEVES MD Dic Date/Time: ??05/04/18 0855 Sign date/Time: ??05/04/18 0859 Procedure Note Logan Nieves MD - 02/12/2022 [facility] Diagnostic Imaging Department [address] [place] [id number] Patient: MANDIE GIRON /Age/Sex: 1965 - 52 - F Unit#: [id number] Location/Status: SPDIMAM/REG CLI Mnemonic/Ordering Site: [facility] Ordering Physician: ROB GRAHAM MD Huy Screening Digital - 05/03/18919 INDICATION: SCREENING COMPARISON: Outside exams of 07/09/2017, 07/01/2017 FINDINGS: CC and MLO views of the breasts were obtained, using full field digital mammography with 3D tomosynthesis views in the MLO projection. Computer aided detection with the [employer] 7.2-H was employed. Patient reports benign ultrasound [...] date for the next mammogram. (G0202 / [id number]) , [id number] Dictating Physician: LOGAN NIEVES MD Electronically Signed by: LOGAN NIEVES MD Dic Date/Time: 05/04/1855 Sign date/Time: 05/04/1859 Rob Graham MD [facility] TIFFANIE from Last 3 Months or Most Recently Relevant to Health Maintenance Care Teams Cmo Relationship Specialty Start Date End Date Rob Graham MD [address] [place] [address] PCP - General Internal Medicine 04/23/18
--- OUTSIDE RECORDS SUMMARY | 2024-03-29 08:52 | XMS_ITS | Clinical Summary ---
Author Organization [facility] Address [address] [place] [address] Care Team Providers Care General Partner Name Role Phone Terrell Graham MD Primary Care Provider Un available Allergies No known active allergies Medications Medication Sig Dispensed Refills Start Date End Date Status omeprazole (PRILOSEC) 20 MG capsule Take 20 mg by mouth daily. 0 Active bismuth subsalicylate (PEPTO BISMOL) 262 MG/15ML suspension Take 15 mL by mouth every 6 hours as needed. 0 Active Naproxen Sodium (ALEVE OR) Take by mouth. 0 Active Active Problems Problem Noted Date Acne rosacea 07/05/2018 GERD (gastroesophageal reflux disease) 0 07/05/2018 Immunizations Name Administration Dates Next Due Tdap 04/05/2018 Family History Medical History Relation Name Comments No Known Problems Brother 1 No Known Problems Brother 2 No Known Problems Brother 3 heart disease Brother 4 Alzheimers Disease Maternal Grandmother Alzheimers Disease Mother Diabetes Paternal Grandmother Relation Name Status [...] drink = 0.6 oz pur e alcohol) socially Sex Assigned at Date Recorded Not on file Last Filed Vital Signs Vital Sign Reading Time Taken Comments Blood Pressure 130/86 09/16/2018 2:57 PM EDT Pulse 76 09/16/2018 2:57 PM EDT Temperature 37.1 ??C (98.7 ??F) 09/16/2018 2:57 PM ED T Respiratory Rate 16 09/16/2018 2:57 PM EDT Oxygen Saturation - - Inhaled Oxygen Concentration - - Weight 82.2 kg (181 lb 3.2 oz) 09/16/2018 2:57 P M EDT Height 172.7 cm (5' 8 ) 09/16/2018 2:57 PM EDT Body Mass Index 27.55 09/16/2018 2:57 PM EDT Plan of Treatment Health Maintenance Due Date Last Done Comments Covid-19 Vaccine (#1) 06/09/1967 HEPATITIS C SCREENING 1984 CHOLESTEROL SCREENING 1986 CERVICAL CANCER SCREENING 12/09/1987 COLON CANCER SCREENING 2016 SHINGLES VACCINE (1 of 2) 2016 MAMMOGRAM 05/04/2019 05/03/2018 BASELINE HEALTH EXAM 40-64 09/16/2020 09/16/2018 INFLUENZA (#1) 2023 BMI CHECK/ADVISE 02/24/2024 09/16/2018, 04/30/2018 DEPRESSION SCREENING/FOLLOWUP 02/24/2024 09/16/2018 SOCIAL NEEDS SCREENING 02/24/2024 09/16/2018 DTAP/TDAP/TD (2 - Td or Tdap) 04/05/2028 04/05/2018 PNEUMOCOCCAL VACCINE FOR HIG H RISK PATIENTS (#1) 12/09/2031 Care Teams General Partner Relationship Specialty Start Date End Date Terrell Graham MD PCP - General Internal Medicine 04/23/18
--- OUTSIDE RECORDS SUMMARY | 2024-03-29 08:52 | XMS_ITS | Clinical Summary ---
Author Organization [employer] Address [address] [facility] [address] [place] [address] Care Team Providers Care Body Wirer Name Role Phone Unavailable Primary Care Provider Unavailabl e Allergies No known active allergies Medications amitriptyline (Elavil) 10 MG tablet Take 10 mg by mouth at bedtime. 11/18/2023 Active cholecalciferol (Vitamin D-3) 25 MCG (1000 UT) capsule TOME ALLIE C PSULA TODOS LOS D 04/08/2023 Active gabapentin (Neurontin) 300 MG capsule TOME 1 C PSULA POR V A ORAL LELO VECES AL D A 07/24/2023 Active Encounters Date Type Department Care Team Description 01/18/2024 10:00 AM EST Office Visit [facility] [address] [place] [address] Deondre Garcia Dental calculus (Primary Dx) from Last 3 Months Social History Tobacco Use Types Packs/Day Years Used Date Smoking Tobacco: Never Passive Smoke Exposure: Never Smokeless Tobacco: Never Tobacco Cessation:Counseling Given: Not Answered Comments Unknown Sex and Gender Information Value Date Recorded Sex Assigned at Female 08/25/2023 9:27 AM EDT Legal Sex Female 9:26 AM EDT Gender Identity Female 08/25/2023 9:27 AM EDT Sexual Orientation Choose not to disclose 2023 9:27 AM EDT Last Filed Vital Signs Vital Sign Reading Time Taken Comments Blood Pressure 120/62 01/18/2024 9:54 AM EST Pulse 76 01/18/2024 9:54 AM EST Temperature - - Respiratory Rate - - Oxygen Saturation - - Inhaled Oxygen Concentration - - Weight - - Height - - Body Mass Index - - Plan of Treatment Health Maintenance Due Date Last Done Comments CT Colonography 1966 Colonoscopy 1966 Colorectal Cancer Screening 1966 Depression Screening 1966 FIT DNA/Cologuard 1966 FIT 1966 FOBT 1966 HIV Screening 1966 SDOH Screening 1966 Sigmoidoscopy 1966 Alcohol/Substance Use Screening 1978 Hepatitis C Screening 1984 Hepatitis B Vaccines (1 of 3 - 19+ 3-dose series) 1985 Pap Smear 12/09/1987 Cervical Cancer Screening 1996 HPV/Cotest 1996 Mammogram 2006 Pneumococcal Vaccine: 50+ Years (1 of 1 - PCV) 2016 Zoster Vaccines (1 of 2) 2016 COVID-19 Vaccine (3 2023-2 5 season) 2023 07/18/2020, 06/19/2020 Influenza Vaccine (#1) 2023 Dental Oral Exam 07/18/2024 01/18/2024 Dental Prophylaxis 07/18/2024 01/18/2024 Tobacco Screening 01/17/2025 01/18/2024 Dental X-Ray: Bitewings 01/18/2025 01/18/2024 Dental X-Ray: Full Mouth 01/18/2027 01/18/2024 DTaP/Tdap/Td Vaccines (2 - T d or Tdap) 04/05/2028 04/05/2018 RSV Patients and Patients Aged 60 years or older (1 - 1-dose 75+ series) 2041 HIB Vaccines Aged Out No longer eligi [...] patient's age to complete this topic Meningococcal Vaccine Aged Out No madi suleman eligible based on patient's age to complete this topic Pneumococcal Vaccine: Pediatrics (0 to 5 Years) and At-Risk Patients (6 to 49) Years) Aged Out No longer eligible b ased on patient's age to complete this topic RSV under 20 months Aged Out No longe r eligible based on patient's age to complete this topic Rotavirus Vaccines Aged Out No longer eligible based on patient's age to complete this topic Procedures Procedure Name Priority Date/Time Associated Diagnosis Comments COMPREHENSIVE ORAL EVALUATION - NEW OR ESTABLISHED PATIENT Routine 01/18/2024 10:00 AM EST ORAL HYGIENE INSTRUCTIONS Routine 2023 10:00 AM EST DIAGNOSTIC - DIAGNOSTIC IMAGING - INTRAORAL - COMPREHENSIVE SERIES OF RADIOGRAPHIC IMAGES Routine 01/18/2024 10:00 AM EST PROPHYLAXIS - ADULT Routine 01/18/2024 1 0:00 AM EST ADJUNCTIVE GENERAL SERVICES - PROFESSIONAL VISITS - CASE PRESENTATION, SUBSEQUENT TO DETAILED AND EXTENSIVE TREATMENT PLANNING Routine 01/18/2024 10:00 AM EST 31,18,19,20 PARTIAL DENTURE - RESIN Routine 01/18/2024 12:00 AM EST 8 PONTIC - PORCELAIN/CERAMIC Routine 01/18/2024 12:00 AM EST 7 PONTIC - PORCELAIN/CERAMIC Routine 01/18/2024 12:00 AM EST 6 PONTIC - PORCELAIN/CERAMIC Routine 01/18/2024 12:00 AM EST 10 RETAINER CROWN - PORCELAIN/CERAMIC Routine 01/18/2024 12:00 AM EST 9 RETAINER CROWN - PORCELAIN/CERAMIC Routine 01/18/2024 12:00 AM EST 5 RETAINER CROWN - PORCELAIN/CERAMIC Routine 01/18/2024 12:00 AM EST 4 RETAINER CROWN - PORCELAIN/CERAMIC Routine 01/18/2024 12:00 AM EST 9 ROOT CANAL Routine 01/18/2024 12:00 AM EST 30 CROWN - PORCELAIN/CERAMIC Routine 01/18/2024 12:00 AM EST from Last 3 Months Insurance [facility] MEDICAID STAND ADULT
--- OUTSIDE RECORDS SUMMARY | 2024-03-29 08:52 | XMS_ITS | Clinical Summary ---
Author Organization [facility] Address [address] [place] [address] Care Team Providers Care Slat Grader Name Role Phone Unavailable Primary Care Provider [...] Plan of Treatment Not on file Insurance [employer] Member Subscriber Plan / Payer (Ef fective 2018-Present) Name:Mandie Giron Relation to Subscriber:Self Name:Mandie Giron Payer ID:[id number] Type:Jamey Address: [facility] [address] [place] [address]
--- NOTE | 2024-03-29 09:05 | A.OFFVIS_ITS ---
Vital Signs 03/29/24 09:06 Height 5 ft 8 in Weight 173 lb BMI 26.3 Intake Visit Reasons: Right shoulder pain and stiffness Intake Note: Mandie is a 58 year old right hand dominant female who presents with complaints of progressively worsening right shoulder pain and stiffness. The patient states that over the last year she has fallen several times onto her right side. The patient states that she has had difficulty lifting her right hand above shoulder height for the last 6 months. She has failed the last 6 weeks of conservative treatment which has included physical therapy, Tylenol and anti- inflammatory medicines. The patient was evaluated by her primary care doctor on 07/24/2023. Her gabapentin dose was increased at that time. The patient states that she has noticed minimal improvement in her pain and stiffness since June. The patient has tried topical creams and ice which gave her minimal relief. Allergies No Known Allergies Allergy (Verified 03/29/24 09:06) Medication List - Last Reconciled 03/29/24 by Michael Esqueda MD cholecalciferol (vitamin D3) 25 mcg PO DAILY 90 days duloxetine (Cymbalta) 30 mg PO DAILY mometasone 0.1% 1 appl topical DAILY 30 days naproxen 500 mg PO Q12H PRN valacyclovir (Valtrex) 500 mg PO BID PFSH Medical History Well woman exam Anxiety, generalized Depression, major, recurrent Herpes labialis Atopic dermatitis Hx of rosacea Hx of cold sores Surgical History Hx of cholecystectomy Tubal ligation status Hx of appendectomy Family History Mother Family hx of hypertension Family history of Alzheimer's disease Father No problems noted. Brother No problems noted. Brother No problems noted. Brother No problems noted. Brother No problems noted. Social History Household Members: Spouse Housing: House Alcohol intake: current Alcohol intake frequency: holidays/special occasions only Patient Tobacco Use Status: Never used Tobacco e-Cigarette/Vaping Use: Never Used service: No Current occupational status: employed and unemployed Current occupation: rt handed Sexual orientation: Straight/Heterosexual Gender identity: Female Cognitive needs: No Hearing needs: No Vision needs: No Female Reproductive History Menstrual Age of Menarche: 14 Physical Exam Vital Signs: BMI result Body Mass Index 26.3 Const Other: Well-nourished well-developed very friendly female awake alert and oriented x3 in no acute distress Extrem Other: Bilateral upper extremity examination shows good capillary refill, no skin le sions noted, normal sensation light touch Right shoulder examination shows decreased active and passive range of motion when compared to her left shoulder, 4+ out of 5 strength with supraspinatus test ing, positive impingement signs, no instability, tenderness over her acromioclavicular joint Results Reviewed Results Reviewed: MRI of the patient's right shoulder show severe acromioclavicular joint narrowing, a type 2 acromion, signal change within the supraspinatus tendon most likely due to adhesive capsulitis Assessment & Plan Assessment & Plan (1) Impingement of right shoulder: Code(s): M25.811 - Other specified joint disorders, right shoulder Category: Medical Plan Ms. Giron presents with progressively worsening right shoulder pain and stiffness due to impingement syndrome, acromioclavicular joint arthritis and adhesive capsulitis. I had a lengthy discussion with the patient regarding the treatment options. At this point she has failed continued non operative treatments. The risks and benefits of right shoulder surgery were discussed at length with the patient. The patient wishes to proceed with surgery. Surgery w ill most likely involve right shoulder diagnostic arthroscopy with distal clavicle excision, acromioplasty, capsular release and manipulation under anesthesia. The patient will be scheduled for next available date. She will follow-up as instructed. Feel free to call me at any time should questions regarding her orthopedic management arise. I spent 20 minutes in reviewing the patient's records and imaging studies, seeing the patient and documenting in the medical record. Coding Level of Care Code Est Pt Level 3 (98722) Complex EM visit Add On G2211 Diagnoses Impingement of right shoulder M25.811
[2024-03-29 09:06] VITALS: BMI 26.3
== END 2024-03-29 09:07 | disposition home or self-care (01) ==
PROVIDERS: PCP Internal Medicine; Visit Provider Orthopaedic Surgery
DX: M25.811 Other specified joint disorders, right shoulder (principal)
CPT/HCPCS: 99213; G2211

== ENCOUNTER → 2024-03-29 08:37 | Outpatient (BNVA) | payer OTHER, SELFPAY | PROVIDERS: PCP Internal Medicine; Visit Provider Orthopaedic Surgery | DX: M25.811 Other specified joint disorders, right shoulder (principal) | CPT/HCPCS: 99212 ==

== ENCOUNTER 2024-04-05 08:46 | Outpatient (REF) | payer OTHER, SELFPAY | END 2024-04-05 08:47 | disposition home or self-care (01) | LOC: HO.US 08:46 | PROVIDERS: PCP Internal Medicine; Visit Provider Internal Medicine | DX: R79.89 Other specified abnormal findings of blood chemistry (principal) | CPT/HCPCS: 76700 ==

== ENCOUNTER → 2024-04-05 08:48 | Outpatient (BNV) | payer OTHER, SELFPAY | PROVIDERS: PCP Internal Medicine; Visit Provider Radiology Diagnostic Radiology | DX: R79.89 Other specified abnormal findings of blood chemistry (principal) | CPT/HCPCS: 76700 ==

== ENCOUNTER 2024-05-04 14:35 | Outpatient (AMB) | payer OTHER, SELFPAY ==
--- NOTE | 2024-05-04 14:41 | A.OFFPC_ITS ---
Vital Signs 05/04/24 14:45 Height 5 ft 8 in Weight 175 lb 2 oz BMI 26.6 BP 112/78 Blood Pressure Location Lt brachial Position Sitting Pulse 101 H Pulse Source Pulse Oximeter Pulse Oximetry (%) 98 Oxygen Delivery Method Room Air Intake Visit Reasons: med review/Insurance OK Product Applications Engineer Required: No Allergies No Known Allergies Allergy (Verified 05/04/24 14:45) Medication List - Last Reconciled 05/04/24 by Carl Kwon MD cholecalciferol (vitamin D3) 25 mcg PO DAILY 90 days duloxetine (Cymbalta) 30 mg PO DAILY mometasone 0.1% 1 appl topical DAILY 30 days naproxen 500 mg PO Q12H PRN valacyclovir (Valtrex) 500 mg PO BID Tobacco use date assessed: 05/04/24 Dental Screening Dental Screen Date: 05/04/24 Did you have a dental visit in the last 12 months?: Yes Did you have a dental problem in the last 6 months where you did not have access to dental care?: No Was dental information given to patient?: Patient has dentist HPI med review/Insurance OK HPI Details - The patient is a 58-year-old female pr esenting with a request for medication refills and customer pricing manager consultation regarding alopecia. - The patient presents alopecia concerns verified by a hairstylist during a recent trip to [place]. - Episodic genital herpes treated with v alacyclovir occurs approximately twice annually. - Diagnosed with fatty liver at abdomina l ultrasound; currently managing with lifestyle adjustments. Mildly elevated LFTs - Scheduled for right shoulder surgery o n May 20 indicating ongoing pain or dysfunction. - taking duloxetine depression which is helping patient, initially started by psychiatrist but now continuing through this office Problem List - Alopecia - Fatty liver - Genital Herpes Simplex (frequent outbr eak requiring episodic treatment) - Right Shoulder Pain (scheduled for kallie kala) - depression/anxiety Patient Instructions - Continue taking prescribed medications : duloxetine, valacyclovir as needed, and vitamin D. - Follow-up with scheduled right shoulde r surgery on May 20. - Appointment with dermatology for alope mc consultation has been planned. - Maintain a healthy weight to manage fa tty liver. - Continue regular check-ups with psychi atric services for prescription of duloxetine. - Next routine physical exam scheduled July 27 at 11 AM. Review of Systems. - General: No fever no chills - Neurological: No headaches no dizziness - Ear nose throat: No sore throat no hearing difficulty no ear pain - Cardiovascular: No syncope, no chest pain, no palpitations - Gastrointestinal: No nausea vomiting or diarrhea - Endocrine: No polyuria polydipsia no heat intolerance - Genitourinary: No dysuria , no blood in urine Physical Exam General: No acute distress HEENT: No acute findings Neck: Supple Respiratory system: Able to talk in full sentences, no audible wheeze cardiovascular: S1-S2 regular in rate and rhythm Gastrointestinal: Fatty liver Extremities: No new findings DRYING SUPERVISOR: Alert awake oriented x3 motor sensory intact Skin: Alopecia noted, large patch of alopecia right parieto-occipital PFSH Medical History Well woman exam Anxiety, generalized Depression, major, recurrent Herpes labialis Atopic dermatitis Hx of rosacea Hx of cold sores Surgical History Hx of cholecystectomy Tubal ligation status Hx of appendectomy Family History Mother Family hx of hypertension Family history of Alzheimer's disease Father No problems noted. Brother No problems noted. Brother No problems noted. Brother No problems noted. Brother No problems noted. Social History Household Members: Spouse Housing: House Alcohol intake: current Alcohol intake frequency: holidays/special occasions only Patient Tobacco Use Status: Never used Tobacco e-Cigarette/Vaping Use: Never Used service: No Current occupational status: employed and unemployed Current occupation: rt handed Sexual orientation: Straight/Heterosexual Gender identity: Female Cognitive needs: No Hearing needs: No Vision needs: No Female Reproductive History Menstrual Age of Menarche: 14 Questionnaire Thrive Questionnaire Date Thrive assessed: 05/04/24 AUDIT C Alcohol Use Questionnaire (AUDIT-C) 1. How often do you have a drink containing alcohol?: Never 3. How often do you have six or more drinks on one occasion?: Never Total Score: 0 Score Reviewed/Action Taken: Yes KAMLESH-7 AMB Questionnaire KAMLESH-7 Date KAMLESH - 7 assessed: 05/04/24 Feeling nervous, anxious, or on edge: 0 = Not at all Not being able to stop or control worryin = Not at all Worrying too much about different things: 0 = Not at all Trouble relaxin = Not at all Being so restless that it is hard to sit still: 0 = Not at all Becoming easily annoyed or irritable: 0 = Not at all Feeling afraid as if something awful might happen: 0 = Not at all Total KAMLESH-7 score (0-4 normal; 5-9 mild; 10-14 moderate; 15-21 severe): 0 Source: Developed by Drs. Crow Burks, Kavita Pace, Chino Corrales and colleagues, with an educational yousif from [employer]. KAMLESH-7 Assessment Billing KAMLESH-7 Assessment Tool: KAMLESH-7 Assessment 46983 Physical exam (Primary Care) Vital Signs: Last Vital Signs Pulse 101 H 05/04/24 14:45 BP 112/78 05/04/24 14:45 Pulse Ox 98 05/04/24 14:45 Oxygen Delivery Method Room Air 05/04/24 14:45 BMI result Body Mass Index 26.6 Tobacco/Smoking Status: Tobacco use Status Tobacco use date assessed 05/04/24 05/04/24 14:46 Patient Tobacco Use Status Never used Tobacco 05/04/24 14:42 e-Cigarette/Vaping Use Never Used 05/04/24 14:42 Thrive Assessment: Date of Thrive Assessment Date Thrive assessed 05/04/24 05/04/24 14:42 Coding Level of Care Code Est Pt Level 4 (56676) Complex EM visit Add On G2211 Diagnoses Alopecia L65.9 LFT elevation R79.89 Moderate episode of recurrent major depressive disorder F33.1 Active/Remission status: currently active Major depression episode severity: moderate Hx of herpes genitalis Z86.19 Vitamin D deficiency E55.9 Impingement of right shoulder M25.811 Additional Codes KAMLESH-7 Assessment Billing - KAMLESH-7 Assessment Tool: KAMLESH-7 Assessment 29051 ([id number]) Assessment & Plan Assessment & Plan (1) Alopecia: Code(s): L65.9 - Nonscarring hair loss, unspecified Category: Medical (2) LFT elevation: Code(s): R79.89 - Other specified abnormal findings of blood chemistry Category: Medical (3) Depression, major, recurrent: Code(s): F33.9 - Major depressive disorder, recurrent, unspecified Category: Medical Qualifiers: Active/Remission status: currently active Major depression episode severity: moderate Qualified Code(s): F33.1 - Major depressive disorder, recurrent, moderate (4) Hx of herpes genitalis: Code(s): Z86.19 - Personal history of other infectious and parasitic diseases Category: Medical (5) Vitamin D deficiency: Code(s): E55.9 - Vitamin D deficiency, unspecified Category: Medical (6) Impingement of right shoulder: Code(s): M25.811 - Other specified joint disorders, right shoulder Category: Medical Plan - The patient is a 58-year-old female presenting with a request for medication refills and customer pricing manager consultation regarding alopecia. - The patient presents alopecia concerns verified by a hairstylist during a recent trip to [place]. - Episodic genital herpes treated with valacyclovir occurs approximately twice annually. - Diagnosed with fatty liver at abdominal ultrasound; currently managing with lifestyle adjustments. Mildly elevated LFTs - Scheduled for right shoulder surgery on May 20 indicating ongoing pain or dysfunction. - taking duloxetine depression which is helping patient, initially started by psychiatrist but now continuing through this office Problem List - Alopecia - Fatty liver - Genital Herpes Simplex (frequent outbreak requiring episodic treatment) - Right Shoulder Pain (scheduled for surgery) - depression/anxiety Patient Instructions - Continue taking prescribed medications: duloxetine, valacyclovir as needed, and vitamin D. - Follow-up with scheduled right shoulder surgery on May 20. - Appointment with dermatology for alopecia consultation has been planned. - Maintain a healthy weight to manage fatty liver. - Continue regular check-ups with psychiatric services for prescription of duloxetine. - Next routine physical exam scheduled for July 27 at 11 AM. Orders: Referrals Dermatology Referral L65.9 - Nonscarring hair loss, unspecified Medications: Changed From valacyclovir (Valtrex) take with onset on of symptoms, take for three days, may repeat dosing per episode prn 500 mg PO BID 30 tabs 1RF To valacyclovir (Valtrex) 500 mg PO BID 90 tabs 1RF Refilled cholecalciferol (vitamin D3) 25 mcg PO DAILY 90 days 90 caps 1RF
[2024-05-04 14:45] VITALS: BP 112/78; PULSE 101; O2SAT 98; BMI 26.6
--- OUTSIDE RECORDS SUMMARY | 2024-05-04 17:14 | XMS_ITS | Clinical Summary ---
Author Organization [facility] Address [address] [place] [address] Care Team Providers Care Set Key Driver Name Role Phone Terrell Graham MD Primary [...] H RISK PATIENTS (#1) 12/09/2031 Care Teams Set Key Driver Relationship Specialty Start Date End Date Terrell Graham MD PCP - General Internal Medicine 04/23/18
--- OUTSIDE RECORDS SUMMARY | 2024-05-04 17:14 | XMS_ITS | Clinical Summary ---
Author Organization [employer] Address [address] [facility] [address] [place] [address] Care Team Providers Care Intensive Care Specialist Name Role Phone Unavailable Primary Care Provider [...] Description 04/14/2024 10:00 AM EST Office Visit [facility] ADULT D[facility]AL [address] [place] [address] Collins Rosen from Last 3 Months Social [...] Most Recently Relevant to Health Maintenance Insurance [facility] MEDICAID STAND ADULT
--- OUTSIDE RECORDS SUMMARY | 2024-05-04 17:14 | XMS_ITS | Encounter Summary ---
Author Organization [employer] Address [address] [address] [place] [address] Care Team Providers Care Resource Manager Name Role Phone Unavailable Primary Care Provider Unavailabl e Reason for Visit * Reason Comments Consult #9 area inflammed an d bleeding Encounter Details Date Type Department Care Team (Late st Contact Info) Description 04/14/2024 10:00 AM EST Office Visit [facility] ADULT D[facility] [address] [place] [address] Collins Rosen [address] [place] [address] Social History Tobacco Use Types Packs/Day Years [...] - PROBLEM FOCUSED (Completed) Service provider: Collins Rosen Billing provider: Tyler Woody DMD [id number] - [...] y.o. female. Time Out: Date: 04/14/2024 Location: [facility] Tooth: #9 Procedure: Exam Verified the above with patient, respiratory therapy assistant, and provider. Confirmed via patient's chart, intraorally and by radiographs. Physical Anthropologist: not applicable 58 y.o. y/o female presents [...] tooth #5 will be assessed by an design supervisor. Additionally, the patient was advised to consider consulting the dentist who originally placed the multi-unit bridge in her [place] [facility]. She stated that the treating dentist is [...] Consult Endo/Cx Provider: Dr. Collins Rosen Dental X Ray Tech: Marta Mahoney Attending: Dr. Woody * Tyler [...]
--- OUTSIDE RECORDS SUMMARY | 2024-05-04 17:14 | XMS_ITS | Clinical Summary ---
Author Organization [facility] Address [address] [place] [address] Care Team Providers Care Moth Exterminator Name Role Phone Unavailable Primary Care Provider [...] Plan of Treatment Not on file Insurance [employer] Member Subscriber Plan / Payer (Ef fective 2018-Present) Name:Mandie Giron Relation to Subscriber:Self Name:Mandie Giron Payer ID:[id number] Type:Jamey Address: [facility] [address] [place] [address]
--- OUTSIDE RECORDS SUMMARY | 2024-05-04 17:14 | XMS_ITS | Encounter Summary ---
Author Organization [facility] Address [address] [place] [address] Care Team Providers Care Wet Cleaner Machine Name Role Phone Terrell Graham MD Primary Care Provider Un available Reason for Visit * Reason Onset Date Comments REFERRAL 09/29/2018 Encounter Details Date Type Department Care Team Description 09/29/2018 Telephone OBGYN - [place] [address] [place] [address] Terrell Graham MD REFERRAL Social History Tobacco [...] you for referring your patient to the FITNESS ASSISTANT Department . We have been unable to schedule marcus you requested,she has not responded to our calls or letter . documented in this encounter Plan of Treatment Not on file documented as of this encounter Visit Diagnoses Not on filedocumented in this encounter Care Teams Wet Cleaner Machine Relationship Specialty Start Date End Date Terrell Graham MD PCP - General Internal Medicine 04/23/18 documented as of this encounter
--- OUTSIDE RECORDS SUMMARY | 2024-05-04 17:14 | XMS_ITS | Encounter Summary ---
Author Organization [facility] Address [address] [place] [address] Care Team Providers Care Brim Pouncer Name Role Phone Terrell Graham MD Primary Care Provider Un available Encounter Details Date Type Department Care Team Description 05/28/2018 Telephone Gastroenterology - [place] [address] [place] [address] Helen Vidal MD [address] [place] [id number] Social History Tobacco Use Types Packs/Day Years [...] on filedocumented in this encounter Care Teams Brim Pouncer Relationship Specialty Start Date End Date Terrell Graham MD PCP - General Internal Medicine 04/23/18 documented as of this encounter
--- OUTSIDE RECORDS SUMMARY | 2024-05-04 17:14 | XMS_ITS | Clinical Summary ---
Author Organization [facility] Address [address] [place] [address] Care Team Providers Care Submarine Advisory Team Watch Officer Name Role Phone Rob Graham MD Primary [...] Procedure Name Priority Date/Time Associated Diagnosis Comments [facility] SCREENING DIGITAL Routine 05/04/2018 8:59 AM EDT Encounter for screening mammogram for malignant neoplasm of breast from Last 3 Months or Most Recently Relevant to Health Maintenance Results * HUY SCREENING DIGITAL (05/04/2018 8:59 AM EDT) Anatomical Region Laterality Modality Mammography 05/03/2018 8:51 AM EDT Narrative 05/04/2018 8:59 AM EDT [facility] Diagnostic Imaging Department [address] [place] [id number] Patient: ??MANDIE GIRON ?/Age/Sex: 1965 - 52 - F Unit#: ??[id number] ? Location/Status: ??SPDIMAM/REG CLI ? Mnemonic/Ordering Site: ??DIGSC/SPMAM Ordering Physician: ??ROB GRAHAM MD Huy Screening Digital - 05/03/18919 INDICATION: SCREENING COMPARISON: Outside exams of ??07/09/2017, 07/01/2017 FINDINGS: CC and MLO views of the breasts were obtained, using full field digital mammography with 3D tomosynthesis views in the MLO projection. Computer aided detection with the Central Test 7.2-H was employed. Patient reports benign ultrasound guided left breast biopsy in 2018 at [facility] FINDINGS: The breasts contain heterogeneously dense tissues, [...] date for the next mammogram. (G0202 / [id number]) , ??[id number] Dictating Physician: ??LOGAN NIEVES MD Electronically Signed by: ??LOGAN NIEVES MD Dic Date/Time: ??05/04/18 0855 Sign date/Time: ??05/04/18 0859 Procedure Note [place] Nieves MD - 02/12/2022 [facility] Diagnostic Imaging Department [address] [place] [address] Patient: MANDIE GIRON /Age/Sex: 1965 - 52 - F Unit#: [id number] [facility] CLI Mnemonic/Ordering Site: [facility] Ordering Physician: ROB GRAHAM MD Huy Screening Digital - 05/03/18 - 919 INDICATION: SCREENING COMPARISON: Outside exams of 07/09/2017, 07/01/2017 FINDINGS: CC and MLO views of the breasts were obtained, using full field digital mammography with 3D tomosynthesis views in the MLO projection. Computer aided detection with the Central Test 7.2-H was employed. Patient reports benign ultrasound [...] date for the next mammogram. G0202 / [id number] , [id number] Dictating Physician: LOGAN NIEVES MD Electronically Signed by: LOGAN NIEVES MD Dic Date/Time: 05/04/18 0855 Sign date/Time: 05/04/18 0859 Rob Graham MD IMG BI PROCEDURES Final Result from Last 3 Months or Most Recently Relevant to Health Maintenance Care Teams Submarine Advisory Team Watch Officer Relationship Specialty Start Date End Date Rob Graham MD [address] [place] [address] PCP - General Internal Medicine 04/23/18
== END 2024-05-04 15:14 | disposition home or self-care (01) ==
LOC: HO.HMCC 14:36
PROVIDERS: PCP Internal Medicine; Visit Provider Internal Medicine
DX: L65.9 Nonscarring hair loss, unspecified (principal); R79.89 Other specified abnormal findings of blood chemistry; F33.1 Major depressive disorder, recurrent, moderate; Z86.19 Personal history of other infectious and parasitic diseases; E55.9 Vitamin D deficiency, unspecified; M25.811 Other specified joint disorders, right shoulder

== ENCOUNTER → 2024-05-04 14:35 | Outpatient (BNVA) | payer OTHER, SELFPAY | PROVIDERS: PCP Internal Medicine; Visit Provider Internal Medicine | DX: L65.9 Nonscarring hair loss, unspecified (principal); R79.89 Other specified abnormal findings of blood chemistry; F33.1 Major depressive disorder, recurrent, moderate; E55.9 Vitamin D deficiency, unspecified; M25.811 Other specified joint disorders, right shoulder; Z86.19 Personal history of other infectious and parasitic diseases | CPT/HCPCS: 96127; 99212 ==

== ENCOUNTER 2024-05-20 10:33 | Day surgery (SDC) | payer OTHER, SELFPAY ==
--- OUTSIDE RECORDS SUMMARY | 2024-04-26 13:23 | XMS_ITS | Clinical Summary ---
Author Organization [facility] Address [address] [place] [address] Care Team Providers Care Portable Sawmill Operator Name Role Phone Unavailable Primary Care [...] Plan of Treatment Not on file Insurance [employer] Member Subscriber Plan / Payer (Ef fective 2018-Present) Name:Mandie Giron Relation to Subscriber:Self Name:Mandie Giron Payer ID:[id number] Type:Jamey Address: [facility] [address] [place] [address]
--- OUTSIDE RECORDS SUMMARY | 2024-04-26 13:23 | XMS_ITS | Clinical Summary ---
Author Organization [facility] Address [address] [place] [address] Care Team Providers Care Rewrite Editor Name Role Phone Rob Graham MD Primary [...] drink = 0.6 oz pur e alcohol) Comments Unknown Sex and Gender Information Value Date Recorded Sex Assigned at Not on file Legal Sex Female 4:37 AM EST Gender Identity Not on file Sexual Orientation Not on file Obstetrics History Plan of Treatment Health Maintenance Due Date Last Done Comments Hepatitis B Vaccines (1 of 3 - 19+ 3-dose series) 1985 Cervical Cancer Screening: P ap Smear 12/09/1987 Pneumococcal Vaccine: 50+ Ye ars (1 of 1 - PCV) 2016 Zoster Vaccines (1 of 2) 2016 Breast [...] patient's age to complete this topic Meningococcal B Vacine Aged Out No lo nger eligible based on patient's age to complete [...] Procedure Name Priority Date/Time Associated Diagnosis Comments [facility] SCREENING DIGITAL Routine 05/04/2018 8:59 AM EDT Encounter for screening mammogram for malignant neoplasm of breast from Last 3 Months or Most Recently Relevant to Health Maintenance Results * HUY SCREENING DIGITAL (05/04/2018 8:59 AM EDT) Anatomical Region Laterality Modality Mammography 05/03/2018 8:51 AM EDT Narrative 05/04/2018 8:59 AM EDT [facility] Diagnostic Imaging Department [address] [place] [address] Patient: ??MANDIE GIRON ?/Age/Sex: 1965 - 52 - F Unit#: ??[id number] ? Location/Status: ??SPDIMAM/REG CLI ? Mnemonic/Ordering Site: ??DIGSC/SPMAM Ordering Physician: ??ROB GRAHAM MD Huy Screening Digital - 05/03/18919 INDICATION: SCREENING COMPARISON: Outside exams of ??07/09/2017, 07/01/2017 FINDINGS: CC and MLO views of the breasts were obtained, using full field digital mammography with 3D tomosynthesis views in the MLO projection. Computer aided detection with the [employer] 7.2-H was employed. Patient reports benign ultrasound guided left breast biopsy in 2018 at [facility] FINDINGS: The breasts contain heterogeneously dense [...] date for the next mammogram. (G0202 / [id number]) , ??[id number] Dictating Physician: ??LOGAN NIEVES MD Electronically Signed by: ??LOGAN NIEVES MD Dic Date/Time: ??05/04/18 0855 Sign date/Time: ??05/04/18 0859 Procedure Note Logan Nieves MD - 02/12/2022 [facility] Diagnostic Imaging Department [address] [place] [address] Patient: MANDIE GIRON /Age/Sex: 1965 - 52 - F Unit#: [id number] [facility] CLI Mnemonic/Ordering Site: [facility] Ordering Physician: ROB GRAHAM MD Huy Screening Digital - 05/03/18 - 919 INDICATION: SCREENING COMPARISON: Outside exams of 07/09/2017, 07/01/2017 FINDINGS: CC and MLO views of the breasts were obtained, using full field digital mammography with 3D tomosynthesis views in the MLO projection. Computer aided detection with the [employer] 7.2-H was employed. Patient reports benign ultrasound [...] a target date for the next mammogram. G0202 / [id number] , [id number] Dictating Physician: LOGAN NIEVES MD Electronically Signed by: LOGAN NIEVES MD Dic Date/Time: 05/04/18 0855 Sign date/Time: 05/04/18 0859 Rob Graham MD IMG BI PROCEDURES Final Result from Last 3 Months or Most Recently Relevant to Health Maintenance Care Teams Rewrite Editor Relationship Specialty Start Date End Date Rob Graham MD [address] [place] [address] PCP - General Internal Medicine 04/23/18
--- OUTSIDE RECORDS SUMMARY | 2024-04-26 13:23 | XMS_ITS | Encounter Summary ---
Author Organization [employer] Address [address] [facility] 7 [place] [address] Care Team Providers Care Summer School Coordinator Name Role Phone Unavailable Primary Care Provider Unavailabl e Reason for Visit * Reason Comments Consult #9 area inflammed an d bleeding Encounter Details Date Type Department Care Team (Late st Contact Info) Description 04/14/2024 10:00 AM EST Office Visit [facility] ADULT DENTAL [address] [place] [address] Collins Rosen [address] [place] [address] Social History Tobacco Use Types Packs/Day Years Used Date Smoking Tobacco: Never Passive Smoke Exposure: Never Smokeless Tobacco: Never Comments Unknown Sex and Gender Information Value Date Recorded Sex Assigned at Female 08/25/2023 9:27 AM EDT Legal Sex Female 9:26 AM EDT Gender Identity Female 08/25/2023 9:27 AM EDT Sexual Orientation Choose not to disclose 2023 9:27 AM EDT documented as of this encounter Progress Notes * Collins Rosen - 04/14/2024 10:00 AM EST Dental procedures in this visit D0140 - LIMITED ORAL EVALUATION - PROBLEM FOCUSED (Completed) Service provider: Collins Roesn Billing provider: Tyler Woody DMD D0220 - INTRAORAL - PERIAPICAL FIRST RADIOGRAPHIC IMAGE 9 (Completed) Service provider: Collins Rosen Billing provider: Tyler Woody DMD D9450 - CASE PRESENTATION, DETAILED AND EXTENSIVE TREATMENT PLANNING (Completed) Service provider: Collins Rosen Billing provider: Tyler Woody DMD D1330 - ORAL HYGIENE INSTRUCTIONS (Completed) Service provider: Collins Rosen Billing provider: Tyler Woody DMD Patient ID: Mandie Giron is a 58 y.o. female. Time Out: Date: 04/14/2024 Location: [facility] Tooth: #9 Procedure: Exam Verified the above with patient, histology assistant, and provider. Confirmed via patient's chart, intraorally and by radiographs. Protozoologist: not applicable 58 y.o. y/o female presents for limited exam with Dr. Collins Rosen Medical history: Reviewed in EHR Vitals: There were no vitals taken for this visit. Allergies: Reviewed in EHR Medications: Reviewed in EHR Radiographs taken: PA CHIEF COMPLAINT: My gums are bleeding Discussion: The patient presented for a dental visit regarding an evaluation of the anterior segment of a multi-unit bridge and gingival bleeding in the area of tooth #9. Clinical examination revealed inflammation around tooth #9. Radiographic findings show the presence of a retained root tip of tooth #9, as well as a periapical radiolucency associated with tooth #5. The patient expressed a desire to preserve the existing bridge if possible. She was informed that the extraction of the root tip of tooth #9 will be evaluated by an oral surgeon, and endodontic treatment for tooth #5 will be assessed by an impact retail service merchandiser. Additionally, the patient was advised to consider consulting the dentist who originally placed the multi-unit bridge in her [place] [facility]. She stated that the treating dentist is a close friend and that she feels comfortable discussing these findings with her. The patient was also informed that if the multi-unit bridge is deemed unsalvageable, a removable partial denture would be a viable alternative. She agreed to the proposed treatment plan, and all her questions were addressed. Rx: Amox NV: Consult Endo/Cx Provider: Dr. Collins Rosen Dental Grade Tamper: Marta Mahoney Attending: Dr. Woody * Tyler Woody DMD - 04/14/2024 10:00 AM EST I have reviewed the documentation and dental procedures made by the rendering provider, Collins Rosen DDS, and approve their chart entries for this visit. Tyler Woody DMD documented in this encounter Plan of Treatment Scheduled Orders Name Type Priority Associated Diagnoses Orde r Schedule CONSULTATION - DIAGNOSTIC SERVICE PROVIDED BY DENTIST OR PHYSICIAN OTHER THAN REQUESTING DENTIST OR PHYSICIAN Dental Routine 1 Occurrenc es starting 04/14/2024 5 5 ENDODONTIC THERAPY, PREMOLAR TOOTH Dental Routine [address] arting 04/14/2024 documented as of this encounter Procedures Procedure Name Priority Date/Time Associated Diagnosis Comments ORAL HYGIENE INSTRUCTIONS Routine 2024 10:00 AM EST LIMITED ORAL EVALUATION - PROBLEM FOCUSED Routine 04/14/2024 10:00 AM EST 9 INTRAORAL - PERIAPICAL FIRST RADIOGRAPHIC IMAGE Routine 04/14/2024 10:00 AM EST CASE PRESENTATION, DETAILED AND EXTENSIVE TREATMENT PLANNING Routine 04/14/2024 10:00 AM EST documented in this encounter Visit Diagnoses Not on filedocumented in this encounter
--- OUTSIDE RECORDS SUMMARY | 2024-04-26 13:23 | XMS_ITS | Clinical Summary ---
Author Organization [employer] Address [address] [facility] [address] [place] [address] Care Team Providers Care Documentum Consultant Name Role Phone Unavailable Primary Care Provider [...] LELO VECES AL D A 07/24/2023 Active DULoxetine (Cymbalta) [address] capsule TOME 1 C PSULA POR V A ORAL DOS VECES AL D A FOR 90 DAYS 04/07/2024 Active naproxen (Naprosyn) 500 MG tablet TOME ALLIE TABLETA POR V A ORAL EVERY 12 HOURS NEEDED FOR PAIN 03/08/2024 Active amoxicillin (Amoxil) 500 MG capsule Take 1 capsule (500 mg) by mouth every 8 (eight) hours for 7 days. 21 capsule 04/14/2024 04/21/19 25 Encounters Date Type Department Care Team Description 04/14/2024 10:00 AM EST Office Visit [facility] ADULT D[facility] [address] [place] [address] Collins Rosen from Last 3 Months Social History Tobacco [...] Vaccines (1 of 2) 2016 COVID-19 Vaccine (2023-2 5 season) 2023 07/18/2020, 06/19/2020 Influenza Vaccine (#1) 2023 Dental Oral Exam 07/18/2024 01/18/2024 Dental Prophylaxis 07/18/2024 01/18/2024 Dental X-Ray: Bitewings 01/18/2025 01/18/2024 Tobacco Screening 04/14/2025 04/14/2024 Dental X-Ray: Full Mouth 01/18/2027 01/18/2024 DTaP/Tdap/Td [...] HYGIENE INSTRUCTIONS Routine 2024 10:00 AM EST CASE PRESENTATION, DETAILED AND EXTENSIVE TREATMENT PLANNING Routine 04/14/2024 10:00 AM EST 9 INTRAORAL - PERIAPICAL FIRST RADIOGRAPHIC IMAGE Routine 04/14/2024 10:00 AM EST LIMITED ORAL EVALUATION - PROBLEM FOCUSED Routine 04/14/2024 10:00 AM EST PROPHYLAXIS - ADULT Routine 01/18/2024 1 0:00 AM EST INTRAORAL - COMPLETE SERIES OF RADIOGRAPHIC IMAGES Routine 01/18/2024 10:00 AM EST COMPREHENSIVE ORAL EVALUATION - NEW OR ESTABLISHED PATIENT Routine 01/18/2024 10:00 AM EST from Last 3 Months or Most Recently Relevant to Health Maintenance Insurance [facility] MEDICAID STAND ADULT
--- OUTSIDE RECORDS SUMMARY | 2024-04-26 13:23 | XMS_ITS | Encounter Summary ---
Author Organization [employer] [facility] Address [address] [place] [address] Care Team Providers Care Managed Security Sales Consultant Name Role Phone Terrell Graham MD Primary Care Provider Un available Reason for Visit * Reason Onset Date Comments REFERRAL 09/29/2018 Encounter Details Date Type Department Care Team Description 09/29/2018 Telephone OBGYN - [place] [address] [place] [address] Terrell Graham MD REFERRAL Social History Tobacco Use Types Packs/Day Years Used Date Smoking Tobacco: Never Smokeless Tobacco: Never Alcohol Use Standard Drinks/Week Comments Yes 0 (1 standard drink = 0.6 oz pur e alcohol) socially Sex Assigned at Date Recorded Not on file documented as of this encounter Miscellaneous Notes * Telephone Encounter - Vero Bass - 09/29/2018 11:57 AM EDT Thank you for referring your patient to the HEALTH SCIENCES PROGRAM COORDINATOR Department . We have been unable to schedule marcus you requested,she has not responded to our calls or letter . documented in this encounter Plan of Treatment Not on file documented as of this encounter Visit Diagnoses Not on filedocumented in this encounter Care Teams Managed Security Sales Consultant Relationship Specialty Start Date End Date Terrell Graham MD PCP - General Internal Medicine 04/23/18 documented as of this encounter
--- OUTSIDE RECORDS SUMMARY | 2024-04-26 13:23 | XMS_ITS | Encounter Summary ---
Author Organization [facility] Address [address] [place] [address] Care Team Providers Care Neuroscientist Name Role Phone Terrell Graham MD Primary Care Provider Un available Encounter Details Date Type Department Care Team Description 05/28/2018 Telephone Gastroenterology - [place] [address] [facility] [address] [place] [address] Helen Vidal MD [address] [place] [address] Social History Tobacco Use Types Packs/Day Years Used Date Smoking Tobacco: Never Assessed Sex Assigned at Date Recorded Not on file documented as of this encounter Miscellaneous Notes * Telephone Encounter - Rachel Lock - 06/04/2018 7:15 AM EDT 2nd vm left for pt requesting a call back to schedule procedure * Telephone Encounter - Rachel Lock - 05/28/2018 11:11 AM EDT Lvm for pt requesting a call back documented in this encounter Plan of Treatment Not on file documented as of this encounter Visit Diagnoses Not on filedocumented in this encounter Care Teams Neuroscientist Relationship Specialty Start Date End Date Terrell Graham MD PCP - General Internal Medicine 04/23/18 documented as of this encounter
[2024-05-06 10:33] VITALS: BMI 26.3
--- NOTE | 2024-05-18 14:06 | HO.ANESPROP2 ---
Documented by User: Tracee Jenkins NP 05/18/24 14:07 HPI - Anesthesia Eval Consult details Narrative: 58yo F for Right Shoulder Arthroscopy, distal clavicle excision, acromioplasty, capsular release, manipulation 1 x PONV, not with other GA's PMFSH Active Problems Active Problems: All Active Problems Vitamin D deficiency (Acute) Alopecia (Acute) Impingement of right shoulder (Acute) Rotator cuff insufficiency of right shoulder (Acute) Sprain of right shoulder (Acute) Peroneal neuropathy (Acute) Shoulder pain, right (Acute) Insomnia (Acute) Knee pain, right (Acute) Injury of knee, right (Acute) Panic anxiety syndrome (Acute) Paresthesias in right hand (Acute) Fibromyalgia (Acute) Polyarthralgia (Acute) Difficulty sleeping (Acute) Headache syndrome (Acute) Impaired fasting blood sugar (Acute) Lumbar spondylosis (Acute) Facet arthritis of lumbar region (Acute) Lumbar radiculopathy (Acute) Encounter for general adult medical examination with abnormal findings (Acute) Colon cancer screening (Acute) Right lumbar radiculitis (Acute) Hemorrhoids (Acute) Achilles tendinitis (Acute) Pain, joint, hip, right (Acute) Recurrent vaginitis (Acute) Chronic upper back pain (Acute) Non-cardiac chest pain (Acute) Muscle strain (Acute) Hot flashes due to menopause (Acute) Rosacea (Acute) Stress at home (Acute) Migraine headache (Acute) Hospital discharge follow-up (Acute) Paresthesia of both hands (Acute) Strain of left trapezius muscle (Acute) LFT elevation (Acute) Chronic GERD (Acute) Atopic dermatitis (Acute) Contact dermatitis (Acute) Stress incontinence (Acute) Acute vaginitis (Acute) Encounter to discuss test results (Acute) Abnormal uterine bleeding (AUB) (Acute) Heavy menstrual bleeding (Acute) Dysmenorrhea (Acute) Hx of abnormal cervical Pap smear (Acute) Hx of herpes genitalis (Acute) Well woman exam with routine gynecological exam (Acute) Anxiety, generalized (Acute) Depression, major, recurrent (Acute) Herpes labialis (Acute) Atopic dermatitis (Acute) Past Medical History Medical History ESTEBAN (obstructive sleep apnea) PONV (postoperative nausea and vomiting) Arthritis Rosacea Migraines Lumbar spondylosis GERD (gastroesophageal reflux disease) Polyarthralgia Fibromyalgia Alopecia Panic anxiety syndrome Anxiety, generalized Depression, major, recurrent Herpes labialis Atopic dermatitis Hx of rosacea Family History Family History Mother Family hx of hypertension Family history of Alzheimer's disease Father No problems noted. Brother No problems noted. Brother No problems noted. Brother No problems noted. Brother No problems noted. Surgical History Surgical History Hx of cholecystectomy Tubal ligation status Hx of appendectomy Social History Social History Household Members: Spouse Housing: House Are you a primary healthcare economics consultant to a significant other at home: No Do you presently have visiting nurse or other home services: No Alcohol intake: current Alcohol intake frequency: does not drink Patient Tobacco Use Status: Never used Tobacco e-Cigarette/Vaping Use: Never Used Use of substances other than those prescribed or required for medical reasons: No Have you been hit, kicked, punched, or otherwise hurt by someone within the past year? If so, by whom?: No Spiritual Healthcare Practices: none Caodaism Healthcare Practices: Rastafari Cultural Healthcare Practices: none Are you DNR?: No Advance Directives: No (spouse is primary contact) Advance Directives Information Provided: Yes (as above noted) Advance Directives on File: No Recently lost weight without trying: No Eating poorly because of decreased appetite: No Nutrition Risks: No Nutritional Risk FDLMP: n/a Poor oral hygiene: No (one dental implant-upper) service: No Current occupational status: employed and unemployed Current occupation: rt handed Sexual orientation: Straight/Heterosexual Gender identity: Female Cognitive needs: No Hearing needs: No Vision needs: No Meds Allergies Allergy/AdvReac Type Severity Reaction Status Date / Time No Known Allergies Allergy Verified 05/20/24 10:42 Active Medications: Current Medications Cefazolin Sodium/Dextrose (Ancef) 2 gm in 50 mls @ 100 mls/hr IV PREOP ONE Stop: 05/20/24 06:20 Home Medications ?Medication ?Instructions ?Recorded ?Confirmed ?Last Taken ?Type cyanocobalamin (vitamin B-12) 100 100 mcg PO DAILY 05/06/24 05/20/24 Unknown History mcg tablet (Vitamin B-12) magnesium oxide 400 mg PO DAILY 05/06/24 05/20/24 Unknown History Exam Height,Weight and Vital Signs: Height 5 ft 8 in Weight 78.471 kg Pertinent Lab Results Pertinent Lab Results: Laboratory Tests 02/11/24 10:22 WBC 5.0 Hgb 13.9 Hct 44.1 Plt Count 276 Sodium 140 Potassium 4.3 Chloride 105 Carbon Dioxide 30 H BUN 18 H Creatinine 0.78 Assessment and Plan Assessment Anesthesia Assessment: Chart Reviewed Documented by User: Cintia Pimentel MD 05/20/24 10:53 PMFSH Past Medical History Medical History ESTEBAN (obstructive sleep apnea) PONV (postoperative nausea and vomiting) Arthritis Rosacea Migraines Lumbar spondylosis GERD (gastroesophageal reflux disease) Polyarthralgia Fibromyalgia Alopecia Panic anxiety syndrome Anxiety, generalized Depression, major, recurrent Herpes labialis Atopic dermatitis Hx of rosacea Family History Family History Mother Family hx of hypertension Family history of Alzheimer's disease Father No problems noted. Brother No problems noted. Brother No problems noted. Brother No problems noted. Brother No problems noted. Family history of problems with anesthesia: No Surgical History Surgical History Hx of cholecystectomy Tubal ligation status Hx of appendectomy History of Problems with Anesthesia: No Social History Social History Household Members: Spouse Housing: House Are you a primary healthcare economics consultant to a significant other at home: No Do you presently have visiting nurse or other home services: No Alcohol intake: current Alcohol intake frequency: does not drink Patient Tobacco Use Status: Never used Tobacco e-Cigarette/Vaping Use: Never Used Use of substances other than those prescribed or required for medical reasons: No Have you been hit, kicked, punched, or otherwise hurt by someone within the past year? If so, by whom?: No Spiritual Healthcare Practices: none Caodaism Healthcare Practices: Rastafari Cultural Healthcare Practices: none Are you DNR?: No Advance Directives: No (spouse is primary contact) Advance Directives Information Provided: Yes (as above noted) Advance Directives on File: No Recently lost weight without trying: No Eating poorly because of decreased appetite: No Nutrition Risks: No Nutritional Risk FDLMP: n/a Poor oral hygiene: No (one dental implant-upper) service: No Current occupational status: employed and unemployed Current occupation: rt handed Sexual orientation: Straight/Heterosexual Gender identity: Female Cognitive needs: No Hearing needs: No Vision needs: No Meds Allergies Allergy/AdvReac Type Severity Reaction Status Date / Time No Known Allergies Allergy Verified 05/20/24 10:42 Home Medications ?Medication ?Instructions ?Recorded ?Confirmed ?Last Taken ?Type cyanocobalamin (vitamin B-12) 100 100 mcg PO DAILY 05/06/24 05/20/24 Unknown History mcg tablet (Vitamin B-12) magnesium oxide 400 mg PO DAILY 05/06/24 05/20/24 Unknown History Exam Airway Mallampati Class: II TM Dist: >3cm Neck ROM: Full Heart: rrr Lungs: cta Assessment and Plan Assessment Anesthesia Assessment: Anesthesia Plan Discussed Final Anesthetic Review Family History of Problems with Anesthesia: No History of Problems with Anesthesia: No NPO: Yes ASA Class: III Final Preanesthetic Review: No Changes in Pt Med Stat, Meds/Allgs Chart Reviewed, Consent Obtained/Reviewed and Anes Risks/Benef Reviewed Patient Risk: Intermediate Procedure Risk: Intermediate Anesthetic Plan Anesthetic Plan: GA, Regional Block and Agree w/ Assess. and Plan Disposition: Standard PACU
[2024-05-20] VITALS (7 sets, daily range): BP systolic 108–133; BP diastolic 43–78; PULSE 74–84; RESP 16–18; TEMP 36.3; O2SAT 93–99; BMI 26.7
[2024-05-20] MEDS: Scopolamine 1.5 MG PATCH.TD.3 TRANSDERMA (10:55)
[2024-05-20] MEDS: Lactated Ringers 1,000 ML 100 ML IVCONT (11:00)
[2024-05-20] MEDS: ceFAZolin Sodium/Dextrose,Iso 2 GM/50 ML PIGGYBACK IV (13:10)
[2024-05-20] MEDS: Acetaminophen 1,000 MG/100 ML PIGGYBACK 400 MG IV (14:00)
--- NOTE | 2024-05-20 14:42 | PM.OP ---
Brief Operative Note Date of Service: 05/20/24 Pre-op diagnosis: Right shoulder impingement syndrome, right shoulder acromioclavicular joint arthritis, right shoulder adhesive capsulitis Post-op diagnosis: same Procedure: Right shoulder diagnostic arthroscopy with right shoulder arthroscopic distal clavicle excision, right shoulder arthroscopic acromioplasty, right shoulder arthroscopic anterior capsular release, right shoulder manipulation under anesthesia Implants: None Surgeon: Michael Esqueda MD Anesthesia: GETA and regional Was an Carbon Lamp Cleaner used for this Procedure?: No Estimated blood loss (mL): 10 Pathology: none sent Condition: stable Disposition: PACU
--- NOTE | 2024-05-20 14:48 | P.OP_ITS ---
Operative Note Operative Note Date of Service: 05/20/24 Narrative: After the patient was identified as Mandie Giron and her right shoulder was initialed by myself the patient was brought to the holding area where a right shoulder interscalene regional block was performed by the anesthesiologist in routine fashion. The patient was then brought to the operating room where general anesthesia was induced by the anesthesiologist in routine fashion. The patient was given 2 g of IV Ancef preoperatively for infection prophylaxis. Examination under anesthesia of the patient's right shoulder showed decreased passive range of motion when compared to the left shoulder. The patient's right shoulder had passive forward flexion to 140 degrees compared to 170 degrees, external rotation to 40 degrees compared to 70 degrees, and internal rotation to 50 degrees compared to 60 degrees. The patient was gently positioned in the beach chair position with all bony prominences well padded. The patient's right shoulder region and upper extremity were prepped and draped in sterile fashion. A formal time-out was completed. A #11 scalpel blade was used to make a posterior portal 2 cm inferior and 1 cm medial to the posterolateral corner of the acromion. Blunt trocar technique was used to enter the glenohumeral joint in routine fashion. An anterior portal was made just lateral to the coracoid process after proper positioning was confirmed using a spinal needle. Diagnostic arthroscopy showed minimal degenerative changes of the glenoid and humeral head articular surfaces. There was no evidence of rotator cuff tearing. There was no evidence of injury to the biceps tendon or its insertion onto the glenoid. There was inflammation of the anterior joint capsule consistent with adhesive capsulitis. The ArthroCare Wand was then used to perform an anterior capsular release between the inferior border of the biceps tendon and the superior border of the subscapularis tendon. The arthroscope was then placed from the posterior portal into the subacromial space. A lateral portal was made 2 fingerbreadths lateral to the anterior lateral corner of the acromion. The ArthroCare Wand was used to ablate soft tissues along the undersurface of the acromion as well as to excise the coracoacromial ligament. There was a sharp spur along the undersurface of the acromion which was removed using the hooded bur. The arthroscope was then placed into the lateral portal and the acromiop lasty was completed with the bur in the posterior portal using the posterior aspect of the acromion as a cutting block. The ArthroCare Wand was then brought in through the anterior portal and was used to ablate soft tissues along the acromioclavicular joint and distal clavicle. The posterior and superior ligamentous structures were left intact. A distal clavicle excision of 8 mm was performed using the fluted bur. Any remaining bursal tissue was removed using the arthroscopic shaver. The subacromial space was irrigated and then drained. All arthroscopic instruments were removed. A gentle manipulation under anesthesia was then performed. Full passive range of motion was easily attained. The 3 portals were closed with 3-0 nylon interrupted suture. The subacromial space was injected with Marcaine. Dry sterile dressing was placed over all incisions. The patient's right upper extremity was placed into a sling. The patient was awoken and extubated in the operating room. The patient was transferred to the recovery room in stable condition.
[2024-05-20] MEDS: cefTRIAXone sodium 1 GM VIAL IVPUSH (15:00)
== END 2024-05-20 16:25 | disposition home or self-care (01) ==
PROVIDERS: PCP Internal Medicine; Visit Provider Orthopaedic Surgery
PROC: (CPT 29805; principal; 2024-05-20 13:20)
DX: M75.41 Impingement syndrome of right shoulder (principal); M75.01 Adhesive capsulitis of right shoulder; M19.011 Primary osteoarthritis, right shoulder; Z91.81 History of falling; M25.511 Pain in right shoulder; M25.611 Stiffness of right shoulder, not elsewhere classified; L20.9 Atopic dermatitis, unspecified; F33.9 Major depressive disorder, recurrent, unspecified; F41.9 Anxiety disorder, unspecified; Z79.1 Long term (current) use of non-steroidal anti-inflammatories (NSAID); Z79.899 Other long term (current) drug therapy
CPT/HCPCS: 29824; 29825; 29826; J0131; J0171; J0665; J0690; J0696; J1100; J2003; J2250; J2405; J2704; J2795; J3010

== ENCOUNTER → 2024-05-20 10:33 | Outpatient (BNV) | payer OTHER, SELFPAY | PROVIDERS: PCP Internal Medicine; Visit Provider Orthopaedic Surgery | DX: M75.41 Impingement syndrome of right shoulder (principal); M19.011 Primary osteoarthritis, right shoulder; M75.01 Adhesive capsulitis of right shoulder | CPT/HCPCS: 29824; 29826 ==

== ENCOUNTER 2024-05-31 13:35 | Outpatient (AMB) | payer OTHER, SELFPAY ==
--- NOTE | 2024-05-31 13:42 | MHC.OFFVIS ---
Intake Visit Reasons: PO RT Shld 05/20/24 DR Intake Note: Mandie is a 58 year old female who presents today post-operatively after undergoing a right shoulder arthroscopy on 05/20/24. Patient reports she is doing well. Sutures removed in office and steri strips applied. Patient is traveling to [place] for a family reuinion and wishes to have a letter for TSA so she is not forced to lift her right shoulder above her head. Denies any fevers or chills. She would like to go to formal physical therapy at [facility] in [place]. Deburr Operator Required: Yes Deburr Operator Language: Obstetrics Gyn Physician Name: ColeSANDHYA duvall/VIV Allergies No Known Allergies Allergy (Verified 05/20/24 10:42) Medication List - Last Reconciled 05/31/24 by Michael Esqueda MD cholecalciferol (vitamin D3) 25 mcg PO DAILY 90 days cyanocobalamin (vitamin B-12) (Vitamin B-12) 100 mcg PO DAILY duloxetine (Cymbalta) 30 mg PO DAILY magnesium oxide 400 mg PO DAILY mometasone 0.1% 1 appl topical DAILY 30 days oxycodone 10 mg (2 x 5 mg) PO Q4H PRN PFSH Medical History ESTEBAN (obstructive sleep apnea) PONV (postoperative nausea and vomiting) Arthritis Rosacea Migraines Lumbar spondylosis GERD (gastroesophageal reflux disease) Polyarthralgia Fibromyalgia Alopecia Panic anxiety syndrome Anxiety, generalized Depression, major, recurrent Herpes labialis Atopic dermatitis Hx of rosacea Surgical History Hx of cholecystectomy Tubal ligation status Hx of appendectomy Family History Mother Family hx of hypertension Family history of Alzheimer's disease Father No problems noted. Brother No problems noted. Brother No problems noted. Brother No problems noted. Brother No problems noted. Social History Household Members: Spouse Housing: House Are you a primary home health care case manager to a significant other at home: No Do you presently have visiting nurse or other home services: No Alcohol intake: current Alcohol intake frequency: does not drink Patient Tobacco Use Status: Never used Tobacco e-Cigarette/Vaping Use: Never Used service: No Current occupational status: employed and unemployed Current occupation: rt handed Sexual orientation: Straight/Heterosexual Gender identity: Female Cognitive needs: No Hearing needs: No Vision needs: No Female Reproductive History Menstrual Age of Menarche: 14 Physical Exam Extrem Other: Right shoulder examination shows that the surgical incisions are healing well, no erythema, mild discomfort with range of motion, no instability Assessment & Plan Assessment & Plan (1) Impingement of right shoulder: Code(s): M25.811 - Other specified joint disorders, right shoulder Category: Medical Plan Ms. Giron is doing well after undergoing right shoulder arthroscopic surgery on 05/20/2024. Her sutures were removed and Steri-Strips placed over her incisions. I did give her a prescription to go to formal physical therapy once she has returned from [place]. The do's and don'ts of lifting were discussed at length with the patient. She will contact me prior to her follow-up appointment in 2 months should any questions or concerns arise. Feel free to call me at any time should questions regarding her orthopedic management arise. Orders: Orders PT Evaluation and Treatment Today M25.811 - Other specified joint disorders, right shoulder Coding Level of Care Code Global (51187) Diagnoses Impingement of right shoulder M25.811
--- OUTSIDE RECORDS SUMMARY | 2024-05-31 16:32 | XMS_ITS | Clinical Summary ---
Author Organization [facility] Address [address] [place] [address] Care Team Providers Care Business Transformation Consultant Name Role Phone Unavailable Primary Care [...] Date Diagnosed Date Acne rosacea 04/05/2018 Immunizations Immunization Administration Dates Next Due TDAP 04/05/2018 Family [...] Plan of Treatment Not on file Insurance Squirrly Member Subscriber Plan / Payer (Ef fective 2018-Present) Name:Mandie Giron Relation to Subscriber:Self Name:Mandie Giron Payer ID:[id number] Type:Jamey Address: [facility] [address] [place] [address]
--- OUTSIDE RECORDS SUMMARY | 2024-05-31 16:32 | XMS_ITS | Clinical Summary ---
Author Organization [employer] [facility] Address [address] [facility] [address] [place] [address] Care Team Providers Care Square Dance Caller Name Role Phone Unavailable Primary Care Provider [...] 12 HOURS NEEDED FOR PAIN 03/08/2024 Active Encounters Date Type Department Care Team Description 04/14/2024 10:00 AM EST Office Visit [facility] [address] [place] [address] Collins Rosen from Last 3 Months Social [...] (1 of 2) 2016 COVID-19 Vaccine (3 - 2023-2 5 season) 2023 07/18/2020, 06/19/2020 Influenza [...] Most Recently Relevant to Health Maintenance Insurance [facility] ST[place] AD[place]
--- OUTSIDE RECORDS SUMMARY | 2024-05-31 16:32 | XMS_ITS | Clinical Summary ---
Author Organization [facility] Address [address] [place] [address] Care Team Providers Care Puttying And Calking Supervisor Name Role Phone Rob Graham MD Primary [...] age to complete this topic Meningococcal B Vaccine Aged Out No l onger eligible based on patient's age to complete [...] Procedure Name Priority Date/Time Associated Diagnosis Comments [facility] SCREENING DIGITAL Routine 05/04/2018 8:59 AM EDT Encounter for screening mammogram for malignant neoplasm of breast from Last 3 Months or Most Recently Relevant to Health Maintenance Results * HUY SCREENING DIGITAL (05/04/2018 8:59 AM EDT) Anatomical Region Laterality Modality Mammography 05/03/2018 8:51 AM EDT Narrative 05/04/2018 8:59 AM EDT [facility] Diagnostic Imaging Department [address] [place] [id number] Patient: ??MANDIE GIRON ?/Age/Sex: 1965 - 52 - F Unit#: ??[id number] ? Location/Status: ??SPDIMAM/REG CLI ? Mnemonic/Ordering Site: ??DIGSC/SPMAM Ordering Physician: ??ROB GRAHAM MD Huy Screening Digital - 05/03/18919 INDICATION: SCREENING COMPARISON: Outside exams of ??07/09/2017, 07/01/2017 FINDINGS: CC and MLO views of the breasts were obtained, using full field digital mammography with 3D tomosynthesis views in the MLO projection. Computer aided detection with the [employer] 7.2-H was employed. Patient reports benign ultrasound guided left breast biopsy in 2018 at [facility] FINDINGS: The breasts contain heterogeneously dense [...] date for the next mammogram. (G0202 / [id number]) , ??[id number] Dictating Physician: ??LOGAN NIEVES MD Electronically Signed by: ??LOGAN NIEVES MD Dic Date/Time: ??05/04/18 0855 Sign date/Time: ??05/04/18 0859 Procedure Note Logan Nieves MD - 02/12/2022 [facility] Diagnostic Imaging Department [address] [place] [address] Patient: MANDIE GIRON /Age/Sex: 1965 - 52 - F Unit#: [id number] Location/Status: [facility] CLI Mnemonic/Ordering Site: [facility] Ordering Physician: ROB GRAHAM MD Huy Screening Digital - 05/03/18 - 919 INDICATION: SCREENING COMPARISON: Outside exams of 07/09/2017, 07/01/2017 FINDINGS: CC and MLO views of the breasts were obtained, using full field digital mammography with 3D tomosynthesis views in the MLO projection. Computer aided detection with the [employer] 7.2-H was employed. Patient reports benign ultrasound [...] date for the next mammogram. G0202 / [id number] , [id number] Dictating Physician: LOGAN NIEVES MD Electronically Signed by: LOGAN NIEVES MD Dic Date/Time: 05/04/1855 Sign date/Time: 05/04/18 0859 Rob Graham MD IMG BI PROCEDURES Final Result from Last 3 Months or Most Recently Relevant to Health Maintenance Care Teams Puttying And Calking Supervisor Relationship Specialty Start Date End Date Rob Graham MD [address] [place] [id number] PCP - General Internal Medicine 04/23/18
== END 2024-05-31 14:04 | disposition home or self-care (01) ==
LOC: HO.HOS 13:36
PROVIDERS: PCP Internal Medicine; Visit Provider Orthopaedic Surgery
DX: M25.811 Other specified joint disorders, right shoulder (principal)
CPT/HCPCS: 99024

== ENCOUNTER → 2024-05-31 13:35 | Outpatient (BNVA) | payer OTHER, SELFPAY | PROVIDERS: PCP Internal Medicine; Visit Provider Orthopaedic Surgery | DX: M25.811 Other specified joint disorders, right shoulder (principal) | CPT/HCPCS: 99212 ==

== ENCOUNTER 2024-06-29 11:00 | Outpatient (RCR) | payer OTHER, SELFPAY ==
--- NOTE | 2024-06-23 11:39 | MHC.PT.EP ---
[facility] [place] [facility] [place] [facility] [place] [facility] [address] Yadiel Alvarado [address] [phone] F: [phone] F: [phone] F: [phone] F: [phone] Physical Therapy Plan of Care Date of Evaluation: 06/23/24 Date of Surgery: 05/20/24 Diagnosis: This is a 58 yo female presenting to skilled PT with a script for s/p impingement R shoulder scope 05/20/24. Assessment: This is a 58 yo female presenting to skilled PT with a script for s/p impingement R shoulder scope 05/20/24. Full procedure included right shoulder diagnostic arthroscopy with right shoulder arthroscopic distal clavicle excision, right shoulder arthroscopic acromioplasty, right shoulder arthroscopic anterior capsular release, right shoulder manipulation under anesthesia. She is here today reporting that she is feeling much better. She reports minimal to no pain but does describe some discomfort located at the anterior and posterior shoulder. Her discomfort increases with lifting the arm up overhead, endurance work, housework like laundry and UB ADLs. Assessment reveals pain that ranges from up to a 5/10 at the worst. Patient demos decreased R shoulder and cervical ROM, strength of B shoulder's, TTP at GHJ joint line, UT, incisions and impaired posture with forward head and rounded shoulders. Based on functional limitations, impaired QOL and pain tolerance patient is a good candidate for skilled PT 2x/wk for 4wks. Frequency and Duration: The patient will be seen 2x/wk for 4wks Short Term Goals: (In 2 weeks) Demo I with HEP Improve shoulder AROM by at least 20 degs Demo proper scapular recruitment with appropriate shoulder strengthening exercises Box Toe Cutter Goals: (in 4 wks) Improve shoulder nonpainful AROM to almost near equal B Demo at least 5 grade improvement in MMT for shoulder Improve overall functional QOL by at least 75% Treatment Plan: Modalities to reduce pain, spasms and effusion. Manual therapy to restore motion and function. Therapeutic exercise to improve strength and flexibility. Neuromuscular re-education for posture and balance. Therapeutic activities to return to functional activities of daily living. Electronically signed by: Sujey Luong, PT Please sign and return to therapist. Thank you for your referral.
--- NOTE | 2024-07-06 12:01 | MHC.PT.DC ---
[facility] [place] Office [place] Office [place] Office [address] Yadiel Alvarado [address] [phone] F: [phone] F: [phone] F: [phone] F: [phone] Physical Therapy Discharge Report Diagnosis: This is a 58 yo female presenting to skilled PT with a script for s/p impingement R shoulder scope 05/20/24. Date of Surgery: 05/20/24 Date of Evaluation: 06/23/24 Date of Discharge: 07/06/24 Treatments to Date: 2 Cancellations to Date: 0 No Shows to Date: 0 Discharge Status: Patient Elected to Stop Discharge Summary: Patient elected to stop PT due to fibromyalgia. Self DC'd per front office director. DC to HEP Electronically signed by: Sujey Luong PT Please sign and return to therapist. Thank you for your referral.
== END 2024-07-06 12:02 | disposition home or self-care (01) ==
LOC: HO.PTCHIC 11:00
PROVIDERS: PCP Internal Medicine; Visit Provider Orthopaedic Surgery
DX: M25.811 Other specified joint disorders, right shoulder (principal)
CPT/HCPCS: 97110; 97162

== ENCOUNTER 2024-07-27 10:31 | Outpatient (AMB) | payer OTHER, SELFPAY ==
[2024-07-27 10:37] VITALS: BP 120/74; PULSE 80; RESP 17; TEMP 36.6; O2SAT 96; BMI 27.1
--- NOTE | 2024-07-27 10:37 | A.OFFPC_ITS ---
Vital Signs 07/27/24 10:37 Height 5 ft 8 in Weight 178 lb 2 oz BMI 27.1 BP 120/74 Blood Pressure Location Rt brachial Position Sitting Respiration 17 Pulse 80 Pulse Source Pulse Oximeter Temp 97.9 F Temp Source Oral Pulse Oximetry (%) 96 Oxygen Delivery Method Room Air Intake Visit Reasons: 6 months f/up Allergies No Known Allergies Allergy (Verified 07/27/24 10:38) Medication List - Last Reconciled 07/27/24 by Carl Kwon MD cholecalciferol (vitamin D3) 25 mcg PO DAILY 90 days cyanocobalamin (vitamin B-12) (Vitamin B-12) 100 mcg PO DAILY duloxetine (Cymbalta) 30 mg PO DAILY magnesium oxide 400 mg PO DAILY mometasone 0.1% 1 appl topical DAILY 30 days Tobacco use date assessed: 07/27/24 Dental Screening Dental Screen Date: 07/27/24 Did you have a dental visit in the last 12 months?: Yes Did you have a dental problem in the last 6 months where you did not have access to dental care?: No Was dental information given to patient?: Patient has dentist HPI 6 months f/up HPI Details History - The patient is a 58 year old female pr esenting with chronic leg pain primarily localized to the left side, experienced predominantly at night. The patient reports this issue is ongoing with periodic exacerbations. - The patient reports her anxiety is cur rently managed well, though she experiences occasional episodes. - She has fibromyalgia for which duloxet ine has been prescribed, providing some relief. - MRI from 2022 showed lumbar degenerati on at multiple levels without canal stenosis. - There is no history of any back surger ies needed, and pain management is the current treatment approach. Medical History: - Generalized Anxiety Disorder - Fibromyalgia - Lumbar Degenerative Disc Disease Medications: - Duloxetine 30 mg daily for fibromyalgi a and anxiety management along with back pain - Vitamin D supplementation - Vitamin B12 supplementation - Magnesium supplementation Social History: - Retired, approved for Social Security Disability benefits. - Engages in daily walking as exercise. - Attempts to maintain a healthy diet. Diagnostic Results: - MRI of lumbar spine in 2022: Degenerat ion at multiple levels, no canal stenosis. Problem List - Leg pain - Generalized Anxiety Disorder - Fibromyalgia - Lumbar Degenerative Disc Disease Patient Instructions - Continue taking Duloxetine 30 mg daily . - Maintain healthy diet and regular exer cise, such as daily walking. - Be cautious with activities that invol ve bending and twisting to avoid worsening lumbar pain. - Follow up on scheduled colonoscopy. Review of Systems - General: No fever no chills - Neurological: No headaches no dizziness - Ear nose throat: No sore throat no hearing difficulty no ear pain - Cardiovascular: No syncope, no chest pain, no palpitations - Gastrointestinal: No nausea vomiting or diarrhea - Endocrine: No polyuria polydipsia no heat intolerance - Genitourinary: No dysuria , no blood in urine Physical Exam General: No acute distress HEENT: No acute findings Neck: Supple Respiratory system: Able to talk in full sentences, no audible wheeze Cardiovascular: S1-S2 regular in rate and rhythm Gastrointestinal: No pain Extremities: Left leg pain, off and on, especially at night 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 Brother No problems noted. Brother No problems noted. Brother No problems noted. Brother No problems noted. Social History Household Members: Spouse Housing: House Are you a primary health care coach to a significant other at home: No Do you presently have visiting nurse or other home services: No Alcohol intake: current Alcohol intake frequency: does not drink Patient Tobacco Use Status: Never used Tobacco e-Cigarette/Vaping Use: Never Used service: No Current occupational status: employed and unemployed Current occupation: rt handed Sexual orientation: Straight/Heterosexual Gender identity: Female Cognitive needs: No Hearing needs: No Vision needs: No Female Reproductive History Menstrual Age of Menarche: 14 Questionnaire PHQ-9 Over the last 2 weeks, how often have you been bothered by any of the following problems? 1. Little interest or pleasure in doing things: not at all 2. Feeling down, depressed, or hopeless: not at all 3. Trouble falling or staying asleep, or sleeping too much: several days 4. Feeling tired or having little energy: several days 5. Poor appetite or overeating: not at all 6. Feeling bad about yourself - or that you are a failure or have let yourself or your family down: not at all 7. Trouble concentrating on things, such as reading the newspaper or watching television: not at all 8. Moving or speaking so slowly that other people could have noticed. Or the opposite - being so fidgety or restless that you have been moving around a lot more than usual: not at all 9. Thoughts that you would be better off or of hurting yourself in some way: not at all Total score: 2 Depression Screening Interpretation: Negative Depression Screening Done: Yes 14990 - PHQ-9 Billing: Yes Source: Developed by Drs. Crow Burks, Kavita Pace, Chino Corrales and colleagues, with an educational yousif from [employer]. Thrive Questionnaire Date Thrive assessed: 07/27/24 I am a: Patient What is your living situation today?: I have a steady place to live Within the past 12 months, did the food you bought not last and you didn't have the money to get more?: Never true Within the past 12 months, did you worry whether your food would run out before you got money to buy more?: Never true Do you have trouble paying for medicines?: No Do you have trouble getting transportation to medical appointments?: No Do you have trouble paying your heating and electricity bill?: No Do you have trouble taking care of your child, family member or friend?: No Do you have trouble with day-to-day activities such as bathing, preparing meals, shopping, managing finances, etc.?: No Are you currently unemployed and looking for a job?: I choose not to answer this question Are you interested in more education?: No Please select the resources that you would like help with: None Currently or been in a relationship where the following occur: No concerns reported THRIVE Score: 0 AUDIT C Alcohol Use Questionnaire (AUDIT-C) 1. How often do you have a drink containing alcohol?: Never 3. How often do you have six or more drinks on one occasion?: Never Total Score: 0 Score Reviewed/Action Taken: Yes KAMLESH-7 AMB Questionnaire KAMLESH-7 Date KAMLESH - 7 assessed: 07/27/24 Feeling nervous, anxious, or on edge: 0 = Not at all Not being able to stop or control worryin = Not at all Worrying too much about different things: 0 = Not at all Trouble relaxin = Not at all Being so restless that it is hard to sit still: 0 = Not at all Becoming easily annoyed or irritable: 0 = Not at all Feeling afraid as if something awful might happen: 0 = Not at all Total KAMLESH-7 score (0-4 normal; 5-9 mild; 10-14 moderate; 15-21 severe): 0 Source: Developed by Drs. Crow Burks, Kavita Pace, Chino Corrales and colleagues, with an educational yousif from [employer]. KAMLESH-7 Assessment Billing KAMLESH-7 Assessment Tool: KAMLESH-7 Assessment 83241 Physical exam (Primary Care) Vital Signs: Last Vital Signs Temp 97.9 F 07/27/24 10:37 Pulse 80 07/27/24 10:37 Resp 17 07/27/24 10:37 BP 120/74 07/27/24 10:37 Pulse Ox 96 07/27/24 10:37 Oxygen Delivery Method Room Air 07/27/24 10:37 BMI result Body Mass Index 27.1 Tobacco/Smoking Status: Tobacco use Status Tobacco use date assessed 07/27/24 07/27/24 10:44 Patient Tobacco Use Status Never used Tobacco 07/27/24 10:44 e-Cigarette/Vaping Use Never Used 07/27/24 10:44 PHQ-9: PHQ-9 Score PHQ-9: Total score 2 07/27/24 11:03 Depression Screening Interpretation: Negative Thrive Assessment: Date of Thrive Assessment Date Thrive assessed 07/27/24 07/27/24 10:44 Currently or been in a relationship where the following occur: No concerns reported Coding Level of Care Code Est Pt Level 4 (55827) Complex EM visit Add On G2211 Diagnoses Panic anxiety syndrome F41.0 Fibromyalgia M79.7 Polyarthralgia M25.50 Headache syndrome G44.89 Facet arthritis of lumbar region M47.816 Additional Codes KAMLESH-7 Assessment Billing - KAMLESH-7 Assessment Tool: KAMLESH-7 Assessment 55509 ([id number]) PHQ-9 - 91227 - PHQ-9 Billing: Yes ([id number]) Assessment & Plan Assessment & Plan (1) Panic anxiety syndrome: Code(s): F41.0 - Panic disorder [episodic paroxysmal anxiety] Category: Medical (2) Fibromyalgia: Code(s): M79.7 - Fibromyalgia Category: Medical (3) Polyarthralgia: Code(s): M25.50 - Pain in unspecified joint Category: Medical (4) Headache syndrome: Code(s): G44.89 - Other headache syndrome Category: Medical (5) Facet arthritis of lumbar region: Code(s): M47.816 - Spondylosis without myelopathy or radiculopathy, lumbar region Category: Medical Plan History - The patient is a 58 year old female presenting with chronic leg pain primarily localized to the left side, experienced predominantly at night. The patient reports this issue is ongoing with periodic exacerbations. - The patient reports her anxiety is currently managed well, though she experiences occasional episodes. - She has fibromyalgia for which duloxetine has been prescribed, providing some relief. - MRI from 2022 showed lumbar degeneration at multiple levels without canal stenosis. - There is no history of any back surgeries needed, and pain management is the current treatment approach. Medical History: - Generalized Anxiety Disorder - Fibromyalgia - Lumbar Degenerative Disc Disease Medications: - Duloxetine 30 mg daily for fibromyalgia and anxiety management along with back pain - Vitamin D supplementation - Vitamin B12 supplementation - Magnesium supplementation Social History: - Retired, approved for Social Security Disability benefits. - Engages in daily walking as exercise. - Attempts to maintain a healthy diet. Diagnostic Results: - MRI of lumbar spine in 2022: Degeneration at multiple levels, no canal stenosis. Problem List - Leg pain - Generalized Anxiety Disorder - Fibromyalgia - Lumbar Degenerative Disc Disease Patient Instructions - Continue taking Duloxetine 30 mg daily. - Maintain healthy diet and regular exercise, such as daily walking. - Be cautious with activities that involve bending and twisting to avoid worsening lumbar pain. - Follow up on scheduled colonoscopy. Medications: Refilled duloxetine (Cymbalta) 30 mg PO DAILY 90 caps 1RF
== END 2024-07-27 11:03 | disposition home or self-care (01) ==
LOC: HO.HMCC 10:32
PROVIDERS: PCP Internal Medicine; Visit Provider Internal Medicine
DX: F41.0 Panic disorder [episodic paroxysmal anxiety] (principal); M79.7 Fibromyalgia; M25.50 Pain in unspecified joint; G44.89 Other headache syndrome; M47.816 Spondylosis without myelopathy or radiculopathy, lumbar region

== ENCOUNTER → 2024-07-27 10:31 | Outpatient (BNVA) | payer OTHER, SELFPAY | PROVIDERS: PCP Internal Medicine; Visit Provider Internal Medicine | DX: M79.7 Fibromyalgia (principal); F41.0 Panic disorder [episodic paroxysmal anxiety]; M25.50 Pain in unspecified joint; G44.89 Other headache syndrome; M47.816 Spondylosis without myelopathy or radiculopathy, lumbar region | CPT/HCPCS: 96127; 99212 ==

== ENCOUNTER 2025-02-01 11:58 | Outpatient (AMB) | payer OTHER, SELFPAY ==
[2025-02-01 12:00] VITALS: BP 118/72; PULSE 82; O2SAT 97; BMI 27.1
--- NOTE | 2025-02-01 12:00 | A.OFFPC_ITS ---
Vital Signs 02/01/25 12:00 Height 5 ft 8 in Weight 178 lb BMI 27.1 BP 118/72 Blood Pressure Location Lt brachial Position Sitting Pulse 82 Pulse Source Pulse Oximeter Pulse Oximetry (%) 97 Intake Visit Reasons: Annual PE Allergies No Known Allergies Allergy (Verified 02/01/25 12:00) Medication List - Last Reconciled 02/01/25 by Carl Kwon MD cholecalciferol (vitamin D3) 25 mcg PO DAILY 90 days cyanocobalamin (vitamin B-12) (Vitamin B-12) 100 mcg PO DAILY magnesium oxide 400 mg PO DAILY mometasone 0.1% 1 appl topical DAILY 30 days Tobacco use date assessed: 07/27/24 Dental Screening Dental Screen Date: 07/27/24 HPI Annual PE HPI Details History of Present Illness The patient is a 59 year old female presenting with a physical exam. Hypertension: - The patient's blood pressure is well-c ontrolled, with a recent reading of 118/72 mmHg. Abnormal lab findings: - Labs from January of last year showed elevated liver enzymes and an LDL of 125. - The patient's TSH was within normal li mits at that time. Depression: - The patient reports feeling unwell due to the weather and recently lost her best friend to cancer. - She previously took sertraline and dul oxetine, stating duloxetine was not effective for her. - She has a 50 mg supply of sertraline a t home but has requested a new prescription for 25 mg. Migraine: - The patient reports having migraines. frequently Vertigo: - The patient reports intermittent dizzi ness and imbalance, described as vertigo. - The symptoms are not present every day . Gastrointestinal Symptoms: - The patient reports intermittent diarr hea and food-dependent vomiting. - She reports vomiting twice in the last month, with one episode on an airplane after eating a turkey sandwich. - She describes her stomach as delicate and avoids tomatoes at night due to sensitivity. - She manages her symptoms through dieta ry changes and denies having acid reflux. Chronic Pain: - The patient reports lumbar pain and le ft-sided lumbar radiculitis. - She also experiences pain she attribut es to neuropathy in her feet due to her back condition, for which she changed her shoes. - This week, her back pain has been dana re. - She describes fluctuating pain charact eristic of fibromyalgia, where pain may be present in one area for a week and then move to another area for two weeks. Health Maintenance: - The patient's last mammogram was last year and she is due for another. - She has an OB-[employer] UMPIRE visit scheduled for March 31. - Despite a discussion last year, she torres s not had a colonoscopy and had previously opted not to have one. - She is now agreeable to proceeding wit h a colonoscopy. - Her last tetanus immunization was in and she is up to date. - She declined the flu vaccine. Medical History: - Hypertension, well-controlled - Depression, with past use of sertralin e and duloxetine - Migraine - Vertigo - Lumbar pain with left radiculitis - Fibromyalgia - Gastroesophageal reflux disease/sensit eric stomach - Last tetanus immunization in 2018 Social History: - The patient denies stress. - She plans to move next year. to [facility] - She reports missing her children, jony calhoun, and family. - She reports that her mood is negativel y affected by the cold weather. Patient Instructions - Schedule a mammogram. - Keep your upcoming [facility] DEVELOPER appointment in March. - Go for your colonoscopy as a referral has been placed. - Go for a fasting blood test. The lab r esults will be reviewed in a follow-up call in three weeks. - Continue taking your Vitamin D and B12 for now. - A prescription for sertraline 25 mg torres s been sent to the pharmacy. - Try taking amitriptyline for your pain , migraines, and to help with sleep. Start with half a tablet at night and increase to a full tablet if needed. A 30- day supply has been sent to the pharmacy. - Be aware that a side effect of amitrip tyline can be dry mouth. - For worsening vertigo, you can take an wswy-xam-wuhaotp motion sickness tablet. - When you see the kids activities coach fo r your colonoscopy, be sure to tell them about your vomiting. - Expect a call in three weeks to check on how you are doing with the new medication. Review of Systems - General: No fever no chills - Ear nose throat: No sore throat no hearing difficulty no ear pain - Cardiovascular: No syncope, no chest pain, no palpitations - Endocrine: No polyuria polydipsia no heat intolerance - Genitourinary: No dysuria - Skin: No new complaints Physical Exam General: Cooperative, healthy appearing, comfortable, no acute distress Orientation: Patient oriented x3 Head: Normal to inspection Ears: Within normal limit visually, Nose: Normal external nose present Face and sinus: Normal facial exam Eyes: Appearance normal, extraocular movement intact pupils reactive Neck: Normal visual inspection and supple Respiratory: Normal respiratory effort and able to speak in complete sentences. Clear to auscultation, no stridor Cardiovascular: S1 and S2 RRR Breast exam : benign GI: Normal to inspection. Soft to palpation and nontender, but patient reports nausea and vomiting occasionally, possibly related to food intake Skin: Turgor normal, no acute findings Neuro: Patient oriented x3, motor sensory intact, balance intact, tandem pass Extremities: Normal to inspection, . [facility] Medical History ESTEBAN (obstructive sleep apnea) PONV (postoperative nausea and vomiting) Arthritis Rosacea Migraines Lumbar spondylosis GERD (gastroesophageal reflux disease) Polyarthralgia Fibromyalgia Alopecia Panic anxiety syndrome Anxiety, generalized Depression, major, recurrent Herpes labialis Atopic dermatitis Hx of rosacea Surgical History Hx of cholecystectomy Tubal ligation status Hx of appendectomy Family History Mother Family hx of hypertension Family history of Alzheimer's disease Father No problems noted. Brother No problems noted. Brother No problems noted. Brother No problems noted. Brother No problems noted. Social History Household Members: Spouse Housing: House Are you a primary reservoir caretaker to a significant other at home: No Do you presently have visiting nurse or other home services: No Alcohol intake: current Alcohol intake frequency: does not drink Patient Tobacco Use Status: Never used Tobacco e-Cigarette/Vaping Use: Never Used service: No Current occupational status: employed and unemployed Current occupation: rt handed Sexual orientation: Straight/Heterosexual Gender identity: Female Cognitive needs: No Hearing needs: No Vision needs: No Female Reproductive History Menstrual Age of Menarche: 14 Questionnaire Thrive Questionnaire Date Thrive assessed: 07/20/24 I am a: Patient What is your living situation today?: I have a steady place to live Within the past 12 months, did the food you bought not last and you didn't have the money to get more?: Never true Within the past 12 months, did you worry whether your food would run out before you got money to buy more?: Never true Do you have trouble paying for medicines?: No Do you have trouble getting transportation to medical appointments?: No Do you have trouble paying your heating and electricity bill?: No Do you have trouble taking care of your child, family member or friend?: No Do you have trouble with day-to-day activities such as bathing, preparing meals, shopping, managing finances, etc.?: No Are you currently unemployed and looking for a job?: I choose not to answer this question Are you interested in more education?: No Please select the resources that you would like help with: None Currently or been in a relationship where the following occur: No concerns reported THRIVE Score: 0 KAMLESH-7 AMB Questionnaire KAMLESH-7 Date KAMLESH - 7 assessed: 07/27/24 Worrying too much about different things: 1 = Several days Trouble relaxin = Several days Being so restless that it is hard to sit still: 1 = Several days Becoming easily annoyed or irritable: 1 = Several days Feeling afraid as if something awful might happen: 0 = Not at all Source: Developed by Drs. Crow Burks, Kavita Pace, Chino Corrales and colleagues, with an educational yousif from [employer]. Physical exam (Primary Care) Vital Signs: Last Vital Signs Pulse 82 02/01/25 12:00 BP 118/72 02/01/25 12:00 Pulse Ox 97 02/01/25 12:00 BMI result Body Mass Index 27.1 Tobacco/Smoking Status: Tobacco use Status Tobacco use date assessed 07/27/24 02/01/25 12:01 Patient Tobacco Use Status Never used Tobacco 02/01/25 12:01 e-Cigarette/Vaping Use Never Used 02/01/25 12:01 Thrive Assessment: Date of Thrive Assessment Date Thrive assessed 07/20/24 02/01/25 12:01 Currently or been in a relationship where the following occur: No concerns reported Coding Level of Care Code Est Pt Level 4 (44702) Est Pt Prev Care 40-64y(74632) Diagnoses Encounter for general adult medical examination with abnormal findings Z00.01 Vertigo R42 Migraine without status migrainosus, not intractable, unspecified migraine type G43.909 Migraine type: unspecified Status migrainosus presence: without status migrainosus Intractability: not intractable Recurrent vomiting R11.10 LFT elevation R79.89 Vitamin D deficiency E55.9 Impaired fasting blood sugar R73.01 Colon cancer screening Z12.11 Assessment & Plan Assessment & Plan (1) Encounter for general adult medical examination with abnormal findings: Code(s): Z00.01 - Encounter for general adult medical examination with abnormal findings Category: Medical (2) Vertigo: Code(s): R42 - Dizziness and giddiness Category: Medical (3) Migraine headache: Code(s): G43.909 - Migraine, unspecified, not intractable, without status migrainosus Category: Medical Qualifiers: Migraine type: unspecified Status migrainosus presence: without status migrainosus Intractability: not intractable Qualified Code(s): G43.909 - Migraine, unspecified, not intractable, without status migrainosus (4) Recurrent vomiting: Code(s): R11.10 - Vomiting, unspecified Category: Medical (5) LFT elevation: Code(s): R79.89 - Other specified abnormal findings of blood chemistry Category: Medical (6) Vitamin D deficiency: Code(s): E55.9 - Vitamin D deficiency, unspecified Category: Medical (7) Impaired fasting blood sugar: Code(s): R73.01 - Impaired fasting glucose Category: Medical (8) Colon cancer screening: Code(s): Z12.11 - Encounter for screening for malignant neoplasm of colon Category: Medical Plan Patient Instructions - Schedule a mammogram. - Keep your upcoming [facility] [employer]ELOPER appointment in March. - Go for your colonoscopy as a referral has been placed. - Go for a fasting blood test. The lab results will be reviewed in a follow-up call in three weeks. - Continue taking your Vitamin D and B12 for now. - A prescription for sertraline 25 mg has been sent to the pharmacy. - Try taking amitriptyline for your pain, migraines, and to help with sleep. Start with half a tablet at night and increase to a full tablet if needed. A 30- day supply has been sent to the pharmacy. - Be aware that a side effect of amitriptyline can be dry mouth. - For worsening vertigo, you can take an bdrd-wgq-ltrrpqz motion sickness tablet. - When you see the kids activities coach for your colonoscopy, be sure to tell them about your vomiting. - Expect a call in three weeks to check on how you are doing with the new medication. . Orders: Orders Complete Blood Count Auto Diff Today E55.9 - Vitamin D deficiency, unspecified, R73.01 - Impaired fasting glucose, R79.89 - Other specified abnormal findings of blood chemistry, Z00.01 - Encounter for general adult medical examination with abnormal findings Comprehensive [place]. Panel Fast Today E55.9 - Vitamin D deficiency, unspecified, R73.01 - Impaired fasting glucose, R79.89 - Other specified abnormal findings of blood chemistry, Z00.01 - Encounter for general adult medical examination with abnormal findings Lipid Panel Today E55.9 - Vitamin D deficiency, unspecified, R73.01 - Impaired fasting glucose, R79.89 - Other specified abnormal findings of blood chemistry, Z00.01 - Encounter for general adult medical examination with abnormal findings MM tomosynthesis screening BI Today Z12.31 - Encounter for screening mammogram for malignant neoplasm of breast Referrals Gastroenterology Referral R11.10 - Vomiting, unspecified, Z12.11 - Encounter for screening for malignant neoplasm of colon Medications: New sertraline 25 mg PO DAILY 90 tabs 0RF amitriptyline 25 mg PO BEDTIME 30 tabs 0RF 30 days Refilled cholecalciferol (vitamin D3) 25 mcg PO DAILY 90 caps 1RF 90 days
== END 2025-02-01 12:46 | disposition home or self-care (01) ==
LOC: HO.HMCC 11:59
PROVIDERS: PCP Internal Medicine; Visit Provider Internal Medicine
DX: Z00.01 Encounter for general adult medical examination with abnormal findings (principal); R42 Dizziness and giddiness; G43.909 Migraine, unspecified, not intractable, without status migrainosus; R11.10 Vomiting, unspecified; R74.01 Elevation of levels of liver transaminase levels; I10 Essential (primary) hypertension; E55.9 Vitamin D deficiency, unspecified; R73.01 Impaired fasting glucose

== ENCOUNTER → 2025-02-01 11:58 | Outpatient (BNVA) | payer OTHER, SELFPAY | PROVIDERS: PCP Internal Medicine; Visit Provider Internal Medicine | DX: Z00.01 Encounter for general adult medical examination with abnormal findings (principal); R42 Dizziness and giddiness; G43.909 Migraine, unspecified, not intractable, without status migrainosus; R11.10 Vomiting, unspecified; R79.89 Other specified abnormal findings of blood chemistry; R73.01 Impaired fasting glucose | CPT/HCPCS: 99396 ==

== ENCOUNTER 2025-02-03 08:36 | Outpatient (REF) | payer OTHER, SELFPAY ==
[2025-02-03 10:11] LABS: MANUAL DIFF FLAG NO
[2025-02-03 10:18] LABS: Hematocrit 45.3 % (37.0-47.0); Hemoglobin 14.0 g/dl (12.0-16.0); Imm Gran Abs Auto 0.02 X10*3/uL (0.00-0.03); Imm Gran Pct Auto 0.4 % (0.0-0.4); Lymphocytes Absolute Auto 1.6 X10*3/uL (1.2-4.9); Mean Corpuscular HGB Conc 30.9 g/dl (31.0-35.0); Mean Corpuscular Hemoglobin 25.2 pg (27.0-33.0); Mean Corpuscular Volume 81.5 fL (80.0-98.0); NRBC Abs Auto 0.000 X10*3/uL (0.0-0.012); NRBC Pct Auto 0.0 /100WBC (0.0-0.2); Platelet Count 310 X10*3/uL (160-400); Red Blood Count 5.56 X10*6/uL (4.20-5.50); White Blood Count 5.6 X10*3/uL (4.8-10.8)
[2025-02-03 10:48] LABS: Alanine Aminotransferase 66 U/L (0-31); Albumin Level 4.7 g/dL (3.5-5.0); Alkaline Phosphatase 84 U/L (39-117); Anion Gap 12 (12-20); Aspartate Amino Transferase 38 U/L (5-31); Blood Urea Nitrogen 18 mg/dL (9-16); Calcium 9.7 mg/dL (8.4-10.2); Carbon Dioxide 28 mmol/L (22-29); Chloride 104 mmol/L (96-108); Cholesterol 203 mg/dL (<200); Estimated Glomerular Filt Rate > 60; HDL Cholesterol 40 mg/dL (>40); Potassium 4.1 mmol/L (3.3-5.1); Sodium 140 mmol/L (135-145); Total Protein 7.0 g/dL (6.5-8.0); Triglycerides 281 mg/dL (<150)
== END 2025-02-03 08:37 | disposition home or self-care (01) ==
LOC: HO.HMGCLDS 08:36
PROVIDERS: PCP Internal Medicine; Visit Provider Internal Medicine
DX: Z00.01 Encounter for general adult medical examination with abnormal findings (principal); E55.9 Vitamin D deficiency, unspecified; R79.89 Other specified abnormal findings of blood chemistry; R73.01 Impaired fasting glucose
CPT/HCPCS: 36415; 80053; 80061; 85025